=== PATIENT | male | born 1945 | race Caucasian/White ===

== ENCOUNTER → 2016-10-24 | Outpatient (CLI) | payer MEDICARE | END | disposition home or self-care (01) | LOC: LABPAT 10:31 | PROVIDERS: ATTEND Orthopaedic Surgery | DX: Z01.812 Encounter for preprocedural laboratory examination (principal) | CPT/HCPCS: 87070 ==

== ENCOUNTER 2016-11-17 05:53 | Inpatient (IN) | payer MEDICARE ==
[2016-11-06 11:09] VITALS: BMI 28.5
--- NOTE | 2016-11-16 17:38 | HP ---
DATE OF ADMISSION: 11/17/2016 Frederick Read is 71-year-old patient seen with painful left knee medial compartment arthroplasty. After having treatment options discussed, he elected to proceed with revision left total knee arthroplasty. Consent regarding the procedure was obtained. Medical clearance was provided by Dr. Celestino Carrion. Cardiac clearance was provided by Dr. Vaughn. His past medical history is hypertension, cardiovascular disease, hyperlipidemia, seizures. Past surgical history is left knee arthroscopy, left knee medial compartment arthroplasty, herniorrhaphy, left shoulder arthroscopy, cardiac catheterization with stent insertion. DAILY MEDICATIONS: Aspirin, benazepril, Dilantin, Lipitor, metoprolol, Plavix, Naprosyn. ALLERGIES: None. SOCIAL HISTORY: Patient denies current tobacco use. PHYSICAL EVALUATION OF HIS LEFT KNEE: There is a well-healed paramedial incision: His range of motion is -2/3 to 115 degrees there is tenderness along the medial and lateral joint lines. There is crepitance along the medial, lateral and patellofemoral compartments with range of motion. His ligaments appear stable. Hip rotation is without pain. Distal neurovascular exam is intact. Radiographs of the left knee revealed a medial compartment resurfacing arthroplasty with patellofemoral lateral compartment osteoarthritic changes. IMPRESSION: Painful left knee medial unicompartmental arthroplasty. PLAN: Revision left total knee arthroplasty.
[~2016-11-17 05:53] MED LIST: ACETAMINOPHEN TAB 500 MG TAB PO ONE; HYDROmorphone 1 MG/ML 1 ML SYRINGE IVP PRN; LIDOCAINE 1% 20 ML VIAL (10MG/ML) FOR IV START INTRADERMA PRN; MELOXICAM 7.5 MG TAB PO ONE; MIDAZOLAM 2 MG/2 ML VIAL IV PRN; ONDANSETRON 4 MG/2 ML VIAL IVP ONE; TRANEXAMIC ACID 1,000 MG in SODIUM CHLORIDE 0.9% 100 ML IVPB ONE; ceFAZolin 2 GM in SODIUM CHLORIDE 0.9% 100 ML IVPB ONE; fentaNYL (PF) 50 MCG/ML 20 ML VIAL IVP PRN
[2016-11-17] MEDS ORDERED: LACTATED RINGERS 1,000 ML IV ONE ×3 (06:43→09:10)
[2016-11-17] MEDS ORDERED: MIDAZOLAM 2 MG/2 ML VIAL IVP ONE (07:12)
[2016-11-17] MEDS ORDERED: fentaNYL (PF) 50 MCG/ML 2 ML AMP IV ONE (07:12)
[2016-11-17] MEDS ORDERED: ePHEDrine 50 MG/ML 1 ML AMP ONE (07:35)
[2016-11-17] MEDS ORDERED: PROPOFOL 10 MG/ML 20 ML VIAL IV ONE (07:35)
[2016-11-17] MEDS ORDERED: fentaNYL (PF) 50 MCG/ML 2 ML AMP ONE (07:35)
[2016-11-17] MEDS ORDERED: TRANEXAMIC ACID 1,000 MG/10 ML VIAL ONE (07:35)
[2016-11-17] MEDS ORDERED: MIDAZOLAM 2 MG/2 ML VIAL ONE (07:35)
[2016-11-17] MEDS ORDERED: PHENYLEPHRINE-0.9% NACL SYG 1 MG/10 ML SYRINGE ONE (07:35)
[2016-11-17] MEDS ORDERED: SODIUM CHLORIDE 0.9% 100 ML BAG ONE (07:35)
[2016-11-17] MEDS ORDERED: ROPIVACAINE 1,100 MG, SODIUM CHLORIDE 0.9% 330 ML MISCELLANE PRN ×2 (08:03)
--- NOTE | 2016-11-17 08:05 | P.ONQ ---
Anesthesiology Proc Note - PNB - Peripheral Nerve Block Performed Left Adductor Canal Infusion Time Out Performed: Yes Indication: Acute Post-Operative Pain, Analgesia Specifically requested for management of pain by DrFernanda: Kyler Hendricks Sedation Type: Sedate with meaningful contact maintained Preparation: Sterile Prep Position: Supine Catheter Depth at Skin (cm): 6 Catheter: Indwelling Needle Types: On-Q Needle Size: 100mm (4") Needle Gauge: 20 Technique: Ultrasound Injectate: 0.5% Ropivacaine (see comment for volume) (20) Blood Aspirated: No Pain Paresthesia on Injection Noted: No Resistance on Injection: Normal Events: Uneventful and Well Tolerated
[2016-11-17] MEDS ORDERED: ceFAZolin 3,000 MG in SODIUM CHLORIDE 0.9% IRRIGATIO 3,000 ML IRRIGATION ONE (08:17)
[2016-11-17] MEDS ORDERED: ROPIVACAINE 246.25 MG, EPINEPHrine 0.5 MG, KETOROLAC 30 MG, cloNIDine HCL/PF 80 MCG, WA... MISCELLANE ONE ×5 (08:30)
[2016-11-17] MEDS ORDERED: ONDANSETRON 4 MG/2 ML VIAL IVP PRN (10:38)
[2016-11-17] MEDS ORDERED: HYDROmorphone 1 MG/ML 1 ML SYRINGE IVP PRN ×3 (10:38)
[2016-11-17] MEDS ORDERED: NALOXONE 0.4 MG/ML 1 ML VIAL IV PRN (10:38)
[2016-11-17] MEDS ORDERED: TEMAZEPAM 15 MG CAP PO PRN (10:38)
[2016-11-17] MEDS ORDERED: HYDROcodone/APAP 7.5-325MG 1 EACH TAB PO PRN (10:38)
--- NOTE | 2016-11-17 10:38 | P.OP ---
Date of Procedure: 11/17/16 Preoperative Diagnosis: Painful left knee medial unicompartmental arthroplasty Postoperative Diagnosis: Painful left knee medial unicompartmental arthroplasty with lateral and patellofemoral compartment osteoarthritis Procedure(s) Performed: Revision left total knee arthroplasty Implants: 1. Depuy Attune cruciate retaining size 6 left cemented femoral component 2. Depuy Attune fixed bearing size 6 cemented tibial base 3. Depuy Attune polyethylene tibial insert fixed bearing cruciate retaining size 612 mm 4. Depuy Attune 38 mm polyethylene cemented patella Anesthesia: regional (Adductor canal block), local, spinal Surgeon: Kyler Hendricks Senior Maintenance Machinist #1: Abad Ledesma Estimated Blood Loss (ml): 75 Pathology: other (Bone, extracted unicompartmental arthroplasty components) Condition: stable Disposition: PACU Indications for Procedure: 71-year-old patient seen with a painful left knee medial compartment arthroplasty. After having treatment options discussed, he elected to proceed with revision left total knee arthroplasty. Operative Findings: See description of procedure Description of Procedure: The patient was taken to the operative suite after having undergone a adductor canal block by department of anesthesia. He underwent a spinal by the department of anesthesia. A well-padded tourniquet was placed proximal left lower extremity. He received preoperative IV antibiotics as well as TXA. The left lower extremity was prepped and draped in the normal sterile orthopedic fashion. The extremity was elevated and tourniquet insufflated to 350. I made a standard central incision over the left knee down to the extensor mechanism. Medial arthrotomy was performed. The patella was everted and knee was flexed. There was a stable appearing unicompartmental arthroplasty in place. There was advanced osteoarthritis involving the patellofemoral joint as well as lateral compartment. At this point we began working on extracting our femoral component and it came out without any significant bone loss and fairly easily. We now created a standard tibial cut cutting through the medial polyethylene component. We then made a standard distal femoral cut followed by standard 4-in -1 cut. At this point it appeared that I could get away with using a primary knee for this revision case. I removed the residual polyethylene component medially and did have good bony areas around it with only about a 3 or 4 mm defect tracking was easily tolerated with a primary implant. We went ahead and placed trial components on both the tibial and femoral side as well as trial polyethylene we worked our way up to the appropriate size polyethylene and we had good range of motion of the knee with good overall stability. We marked off the appropriate rotation of the tibia. I now everted the patella and made a appropriate patellar cut with appropriate patella drill guide and patellar trial component. The knee was taken through full range of motion with good overall stability noted and good tracking the patella. The trial components removed and the keel punch was made for the tibia. We then chose the appropriate components and opened them up. We irrigated the joint with pulse lavage mechanical irrigation. The deep soft tissues were infiltrated with local analgesic. We mixed antibiotic methylmethacrylate. We now cemented in our components including a polyethylene component and patella component. The superficial soft tissues were infiltrated local analgesic. Once the methyl get hardened we took the patellar clamp off and again taken through range of motion. I did this point feel had some hyperextensionswapped the polyethylene for 2 more millimeters with gait which gave us excellent overall stability with continued overall good stability and full range of motion. At this point the tourniquet was released. The wound was irrigated with pulse lavage mechanical irrigation. Additional hemostasis achieved electrocautery. A second gram of TXA was given. The extensor mechanism was repaired and he was then taken through full range of motion with good stability noted. The subcu soft tissues were repaired in layers followed by a subcuticular skin suture and pernio and Dermabond for skin. Sterile dressings were applied followed by web roll and Arnold bandage. The patient was awakened and transferred to a bed and then recovery stable condition. Abad POSEY assisted with the procedure.
--- NOTE | 2016-11-17 11:37 | XR ---
EXAMINATION TYPE: XR knee limited LT DATE OF EXAM: 11/17/2016 11:07 AM COMPARISON: NONE TECHNIQUE: 2 view submitted HISTORY: Post op FINDINGS: There is a prosthetic knee in near anatomic alignment. There is soft tissue edema and emphysema. IMPRESSION: 1. Postoperative change. Appears in near-anatomic alignment
[2016-11-17] MEDS: LACTATED RINGERS 1,000 ML IV SCH (11:45)
[2016-11-17] MEDS: traMADol 50 MG TAB PO SCH ×3 (13:01→23:26)
[2016-11-17] MEDS: HYDROcodone/APAP 7.5-325MG 1 EACH TAB PO PRN ×2 (15:19→21:17)
[2016-11-17] MEDS: hydrOXYzine PAMOATE 25 MG CAP PO PRN (15:20)
[2016-11-17] MEDS: ceFAZolin 2 GM in SODIUM CHLORIDE 0.9% 100 ML IVPB SCH (15:20)
[2016-11-17] MEDS: ATORVASTATIN 40 MG TAB PO SCH (21:18)
[2016-11-17] MEDS: ENOXAPARIN 30 MG/0.3 ML SYRINGE SQ SCH (21:19)
[2016-11-17] MEDS: PHENYTOIN SODIUM EXTENDED 100 MG CAP PO SCH (21:19)
[2016-11-17] MEDS: SENNOSIDES-DOCUSATE SODIUM 1 EACH TAB PO SCH (21:19)
[2016-11-18] MEDS: ceFAZolin 2 GM in SODIUM CHLORIDE 0.9% 100 ML IVPB SCH (00:24)
[2016-11-18] MEDS: SODIUM CHLORIDE 0.9% 1,000 ML IV SCH ×2 (00:24→12:33)
[2016-11-18] MEDS: HYDROcodone/APAP 7.5-325MG 1 EACH TAB PO PRN ×4 (02:38→18:00)
[2016-11-18] MEDS: LACTATED RINGERS 1,000 ML IV SCH (04:41)
[2016-11-18 07:24] LABS: Basophils % (A) 0 %; CH 31.3; Eosinophils % (A) 0 %; HCT 37.1 % (39.0-53.0); HGB 11.9 gm/dL (13.0-17.5); Luc # (Auto) 0.24; Luc % (Auto) 3; Lymphocytes # (A) 0.9 k/uL (1.0-4.8); Lymphocytes % (A) 10 %; MCH 30.7 pg (25.0-35.0); MCHC 32.2 g/dL (31.0-37.0); MCV 95.3 fL (80.0-100.0); Mean Platelet Volume 8.2; Monocytes # (A) 0.7 k/uL (0-1.0); Monocytes % (A) 8 %; Neutrophils % (A) 79 %; RBC 3.89 m/uL (4.30-5.90); RDW 12.2 % (11.5-15.5); WBC 8.9 k/uL (3.8-10.6); WBC (Perox) 9.72
[2016-11-18] MEDS: hydrOXYzine PAMOATE 25 MG CAP PO PRN ×3 (07:42→18:01)
[2016-11-18] MEDS: PHENYTOIN SODIUM EXTENDED 100 MG CAP PO SCH ×2 (07:45→21:10)
[2016-11-18] MEDS: MULTIVITAMINS, THERA 1 EACH TAB PO SCH (07:45)
[2016-11-18] MEDS: ISOSORBIDE MONONITRATE ER 30 MG TAB.ER.24H PO SCH (07:46)
[2016-11-18] MEDS: ENOXAPARIN 30 MG/0.3 ML SYRINGE SQ SCH ×2 (07:46→21:10)
[2016-11-18] MEDS: LISINOPRIL 20 MG TAB PO SCH (07:46)
[2016-11-18] MEDS ORDERED: MELOXICAM 7.5 MG TAB PO SCH (09:00)
[2016-11-18] MEDS ORDERED: FAMOTIDINE 20 MG TAB PO SCH (09:00)
[2016-11-18] MEDS: traMADol 50 MG TAB PO SCH ×4 (10:00→21:11)
[2016-11-18] MEDS ORDERED: NITROGLYCERIN SL TABS 0.4 MG TAB SUBLINGUAL PRN (11:10)
--- NOTE | 2016-11-18 11:41 | P.PN ---
Subjective Principal diagnosis: Status post revision left total knee arthroplasty Patient is seen today resting in his hospital bed, his is present at bedside. Patient admits to increasing pain today when he attempted to weight- bear. He denies any chest pain, shortness of breath, fever or chills. Objective - Vital Signs Vital signs: Vital Signs Temp 98.0 F 11/18/16 07:00 Pulse 77 11/18/16 07:00 Resp 16 11/18/16 07:00 BP 119/70 11/18/16 07:00 Pulse Ox 95 11/18/16 07:00 Intake & Output 11/17/16 11/18/16 11/18/16 18:59 06:59 18:59 Intake Total 2562 480 Output Total 215 1000 200 Balance 2347 -1000 280 Intake: IV 2202 Sodium Chloride 0.9% 1, 100 000 ml @ 50 mls/hr IV . Q20H GLORIA Rx#:[id number] Oral 360 480 Output: Urine 140 1000 200 Uretheral (Juarez) 200 Estimated Blood Loss 75 Other: Voiding Method Indwelling Catheter Indwelling Catheter - Exam Left lower extremity: Incision is clean, dry and intact. Ecchymosis present along the medial and lateral aspects of the incision. Moderate swelling noted around the knee into the calf. There is no tenderness with palpation throughout the calf. Plantar flexion, dorsiflexion, EHL, FHL are intact. Sensory exam to light touch is intact, cap refills less than 2 seconds. - Labs CBC & Chem 7: 11/18/16 07:01 Labs: Abnormal Lab Results - Last 24 Hours (Table) 11/18/16 Range/Units 07:01 RBC 3.89 L (4.30-5.90) m/uL Hgb 11.9 L (13.0-17.5) gm/dL Hct 37.1 L (39.0-53.0) % Lymphocytes # 0.9 L (1.0-4.8) k/uL Assessment and Plan Plan: Assessment: 1. Postop day #1 status post revision left total knee arthroplasty Plan: 1. Pain control, we will adjust oral medication slightly 2. Daily dressing changes/ice and elevate 3. Continue therapy and CPM 4. Encourage incentive spirometer 5. GI and DVT prophylaxis, continue Lovenox subcu during hospital stay, we'll discharge home with aspirin 325 mg twice a day 6. Cisco liz 7. Discharge planning: Patient will be likely discharged home tomorrow Time with Patient: Less than 30
[2016-11-18] MEDS: HYDROcodone/APAP 10-325MG 1 EACH TAB PO SCH ×3 (12:16→21:11)
--- NOTE | 2016-11-18 12:33 | P.PN ---
Progress Note - Text 0634 anesthesia POD1. Patient is status post left TKR under spinal anesthesia with a left adductor canal catheter placed for postoperative pain relief. Adductor canal catheter site is clean, dry and the dressing is intact. 0.2% ropivacaine is infusing at 10 mL/h resulting in a VAS of (2, 4).
[2016-11-18] MEDS: ASPIRIN 325 MG TAB PO SCH (12:58)
[2016-11-18] MEDS: FAMOTIDINE 20 MG TAB PO SCH ×2 (12:58→21:42)
--- NOTE | 2016-11-18 13:48 | CONS ---
DATE OF CONSULTATION: 11/17/2016. REASON FOR CONSULTATION: Advice regarding coronary artery disease and other multiple medical issues requested Dr. Hendricks. HISTORY OF PRESENT ILLNESS: This 71-year-old gentleman with a past history of coronary artery disease, history of hypertension, hyperlipidemia, history of myocardial infarction, history of, history of CAD/stent, being followed by Dr. Mk Carrion in the outpatient setting underwent left total knee joint arthroplasty revision by Dr. Hendricks. There is no history of any fever, rigors or chills. No history of headache, loss of consciousness or seizures. Past medical history of CAD, hypertension, hyperlipidemia, history of myocardial infarction, history of subdural hematoma, history of appendectomy, CAD/stent. MEDICATIONS PRIOR TO ADMISSION: Home medications are: 1. Dilantin 200 mg p.o. b.i.d. 2. [place]-3 1000 mg p.o. b.i.d. 3. Nitrostat 0.4 sublingual p.r.n. 4. Multivitamins one p.o. daily. 5. Imdur 30 mg p.o. daily. 6. Plavix 75 milligrams daily. 7. Vitamin D3 1000 p.r.n. 8. Lotensin 10 mg p.o. b.i.d. 9. Lipitor 40 mg. 10. Aspirin 320 mg daily. ALLERGIES: ntd FAMILY HISTORY: History of CAD in the family. SOCIAL HISTORY: Previous history of smoking, occasional alcohol intake. REVIEW OF SYSTEMS: ENT: No diminished hearing. No diminished vision. CARDIOVASCULAR SYSTEM: As mentioned earlier. RESPIRATORY: No cough or hemoptysis. GI: No nausea. : No dysuria. CENTRAL NERVOUS SYSTEM: No numbness or weakness. ALLERGY/IMMUNOLOGY: No asthma or hayfever. MUSCULOSKELETAL: As mentioned earlier. HEMATOLOGY/ONCOLOGY: No history of anemia. ENDOCRINE: No history of diabetes or hypothyroidism. CONSTITUTIONAL: As mentioned earlier. DERMATOLOGY: Negative. RHEUMATOLOGY: Negative. PSYCHIATRY: Negative. PHYSICAL EXAMINATION: The patient is alert and oriented times three, pulse 77, blood pressure 140/77, respiratory rate 16, temperature 97.4, pulse ox 94% on room air. HEENT: Conjunctivae normal. NECK: No jugular venous distention. CARDIOVASCULAR: S1, S2 muffled. RESPIRATORY : Breath sounds diminished at the bases. No rhonchi, no crackles. ABDOMEN: Soft. Legs: Status post knee joint arthroplasty. LYMPHATICS: No lymph nodes palpable in the neck, axillae or groin. Labs are glucose 105. CBC within normal limits. Phenytoin is normal. ASSESSMENT: 1. Status post right total knee arthroplasty revision for severe degenerative joint disease. 2. History of coronary artery disease/stents. 3. Hypertension. 4. Hyperlipidemia. 5. History of myocardial infarction. 6. History of seizure disorder. 7. History of subdural hematoma. 8. History of degenerative joint disease. 9. Remote history of nicotine dependence. 10. FULL CODE. RECOMMENDATIONS AND DISCUSSION: In this 71-year-old gentleman who presented with multiple complex medical issues, at this time, I would recommend to continue the current medications, continue symptomatic treatment. Otherwise, resume the home medication including antiplatelet agents when okay with orthopedic surgery. Otherwise, I would recommend close monitoring. DVT prophylaxis. Further recommendations to follow. Incentive spirometry. The patient will be asked to follow with the primary physician and sanitation worker cleaning equipment closely after discharge. Thank you, Dr. Hendricks for letting us participate in the care of this patient. SALAS
[2016-11-18] MEDS: ATORVASTATIN 40 MG TAB PO SCH (21:10)
[2016-11-18] MEDS: SENNOSIDES-DOCUSATE SODIUM 1 EACH TAB PO SCH (21:11)
--- NOTE | 2016-11-18 21:53 | CONS ---
DATE OF CONSULTATION: 11/18/2016 REASON FOR CONSULTATION: Medical management requested by Dr. Hendricks. CONSULTATION: This is a very pleasant 71-year-old patient of Dr. Carrion who has undergone a left total knee arthroplasty. Post-procedure some pain is present. No nausea, vomiting. No chest pain. Patient's chronic stable medical conditions include coronary artery disease with stent back in 2013 and 2002, hyperlipidemia, hypertension, seizure disorder, the last being 10 years ago. REVIEW OF SYSTEMS: CONSTITUTIONAL: None. HEENT: None. RESPIRATORY: None. CARDIOVASCULAR: None. GASTROINTESTINAL: None. GENITOURINARY: None. MUSCULOSKELETAL: Arthritic pain in the right knee. DERMATOLOGIC: None. HEMATOLOGIC: None. LYMPHATIC: None. PSYCHIATRY: None. NEUROLOGICAL: None. PAST HISTORY: 1. Coronary artery disease with stent in 2002 and 2013. 2. Hyperlipidemia. 3. Hypertension. 4. Seizure disorder. 5. Subdural hematoma. PAST SURGICAL HISTORY: 1. Appendectomy. 2. Cardiac cath with stent. 3. Hernia repair. 4. Joint replacement. 5. Left rotator cuff repair x2. SOCIAL HISTORY: Patient stopped smoking in 2001; he used to smoke a pipe. . Alcohol rarely. FAMILY HISTORY: Coronary artery disease. HOME MEDICATIONS: 1. Dilantin 200 mg p.o. b.i.d. 2. [place]-3 1000 mg p.o. b.i.d. 3. Nitrostat 0.4 sublingually q.5 p.r.n. 4. Centrum Complete 1 tablet p.o. daily. 5. Imdur 30 mg daily. 6. Plavix 75 mg daily. 7. Lotensin 10 mg p.o. b.i.d. 8. Lipitor 40 mg p.o. at bedtime. 9. Aspirin 325 p.o. daily. ALLERGIES: QUININE. On examination, temperature 98, pulse 77, respiration 16, blood pressure 119/70, pulse ox 95% on room air. GENERAL APPEARANCE: Average build. Sitting up. Not in distress. EYES: Pupils equal. Conjunctivae normal. HEENT: Oral cavity normal. NECK: JVD not raised. Mass not palpable. RESPIRATORY: Effort normal. Lungs are clear. CARDIOVASCULAR: First and second sounds normal. No edema. ABDOMEN: Soft, nontender. Liver and spleen not palpable. LYMPHATICS: No lymph node palpable in neck or axillae. PSYCHIATRY: Alert and oriented x3. Mood and affect normal. NEUROLOGICAL: Pupils equal. Cranial nerves grossly intact. Power and sensation grossly intact. MUSCULOSKELETAL: Evidence of osteoarthritis, especially in the right knee. Dressing over the left knee. INVESTIGATIONS: White count 8.9, hemoglobin 11.9. ASSESSMENT: 1. Left total knee arthroplasty. 2. Osteoarthritis of the right knee. 3. Chronic seizure disorder, for which the patient is on Dilantin. 4. Essential hypertension. 5. Hyperlipidemia. 6. Coronary artery disease with stent in 2002 and 2013, which is stable. PLAN: Patient's home medications are to be resumed. DVT prophylaxis was discussed with the PA from Orthopedics. Patient to go back on his Plavix if okay with the attending. Care was discussed with the patient and family at the bedside. Questions were answered. Thank you, Dr. Hendricks.
[2016-11-19] MEDS: HYDROcodone/APAP 7.5-325MG 1 EACH TAB PO PRN ×2 (00:28→05:19)
[2016-11-19] MEDS: HYDROcodone/APAP 10-325MG 1 EACH TAB PO SCH (09:05)
[2016-11-19] MEDS: ASPIRIN 325 MG TAB PO SCH (09:06)
[2016-11-19] MEDS: PHENYTOIN SODIUM EXTENDED 100 MG CAP PO SCH ×2 (09:07→20:16)
[2016-11-19] MEDS: ENOXAPARIN 30 MG/0.3 ML SYRINGE SQ SCH ×2 (09:07→20:16)
[2016-11-19] MEDS: ISOSORBIDE MONONITRATE ER 30 MG TAB.ER.24H PO SCH (09:07)
[2016-11-19] MEDS: FAMOTIDINE 20 MG TAB PO SCH ×2 (09:07→20:16)
[2016-11-19] MEDS: LISINOPRIL 20 MG TAB PO SCH (09:07)
[2016-11-19] MEDS: traMADol 50 MG TAB PO SCH ×4 (09:37→21:27)
[2016-11-19] MEDS: HYDROcodone/APAP 10-325MG 1 EACH TAB PO PRN ×3 (11:02→21:26)
[2016-11-19] MEDS: hydrOXYzine PAMOATE 25 MG CAP PO PRN ×2 (11:02→16:10)
--- NOTE | 2016-11-19 12:10 | US ---
EXAMINATION TYPE: US venous doppler duplex LE LT DATE OF EXAM: 11/19/2016 10:54 AM COMPARISON: NONE CLINICAL HISTORY: calf swelling, s/p tka. Left knee replacement on thursday. On blood thinners per pat ient. SIDE PERFORMED: Left VESSELS IMAGED: External Iliac Vein (EIV) Common Femoral Vein Deep Femoral Vein Greater Saphenous Vein * Femoral Vein Popliteal Vein Small Saphenous Vein * Proximal Calf Veins (* superficial vessels) Findings: There appears be normal compressibility and spontaneous flow. IMPRESSION: 1. No diagnostic evidence of DVT.
--- NOTE | 2016-11-19 12:31 | P.PN ---
Subjective Principal diagnosis: Status post revision left total knee arthroplasty Patient is seen today resting in his hospital bed, his is present at bedside. Patient continue to have increased pain. He denies any chest pain, shortness of breath, fever or chills. Objective - Vital Signs Vital signs: Vital Signs Temp 98.3 F 11/19/16 07:00 Pulse 76 11/19/16 07:00 Resp 18 11/19/16 07:00 BP 130/75 11/19/16 07:00 Pulse Ox 94 L 11/19/16 07:00 Intake & Output 11/18/16 11/19/16 11/19/16 18:59 06:59 18:59 Intake Total 530 450 Output Total 575 Balance -45 450 Intake: IV 50 Sodium Chloride 0.9% 1, 50 000 ml @ 50 mls/hr IV . Q20H GLORIA Rx#:[id number] Oral 480 450 Output: Urine 575 Uretheral (Juarez) 200 Other: Voiding Method Urinal # Voids 3 - Exam Left lower extremity: Incision is clean, dry and intact. Ecchymosis present along the medial and lateral aspects of the incision. Moderate swelling noted around the knee into the calf. Minor tenderness with palpation on posterior aspect of calf. Plantar flexion, dorsiflexion, EHL, FHL are intact. Sensory exam to light touch is intact, cap refills less than 2 seconds. - Labs CBC & Chem 7: 11/18/16 07:01 Assessment and Plan Plan: Assessment: 1. Postop day #2 status post revision left total knee arthroplasty Plan: 1. Pain control, increased oral medication 2. Daily dressing changes/ice and elevate 3. Continue therapy and CPM 4. Encourage incentive spirometer 5. GI and DVT prophylaxis, continue Lovenox subcu during hospital stay, we'll discharge home with aspirin 325 mg twice a day. Doppler of LLE was negative. 6. Medical recommendations 7. Discharge planning: Patient will be likely discharged home tomorrow Time with Patient: Less than 30
[2016-11-19] MEDS: MULTIVITAMINS, THERA 1 EACH TAB PO SCH (13:15)
[2016-11-19] MEDS: CLOPIDOGREL 75 MG TAB PO SCH (20:15)
[2016-11-19] MEDS: SENNOSIDES-DOCUSATE SODIUM 1 EACH TAB PO SCH (20:16)
[2016-11-19] MEDS: ATORVASTATIN 40 MG TAB PO SCH (20:16)
[2016-11-20 02:32] VITALS: RESP 16
[2016-11-20] MEDS: hydrOXYzine PAMOATE 25 MG CAP PO PRN ×2 (02:51→08:38)
[2016-11-20] MEDS: HYDROcodone/APAP 10-325MG 1 EACH TAB PO PRN ×3 (02:52→13:38)
--- NOTE | 2016-11-20 07:57 | PN ---
DATE OF SERVICE: 11/19/2016 PRESENTING COMPLAINT: Left knee surgery. INTERVAL HISTORY: Patient was seen by me earlier today, doing well. Pain is controlled. No chest pain, short of breath, nausea or vomiting. Some swelling of the left leg, getting an ultrasound and rule out DVT. Tolerating his diet. at the bedside. Review of systems done for constitutional, cardiovascular, GI, pulmonary; relevant findings as above. Current medications are reviewed. On examination, temperature 98.3, pulse 76, respiration 18, blood pressure 130/75, pulse ox 94% on room air. GENERAL APPEARANCE: Lying in bed, comfortable. EYES: Pupils equal. Conjunctivae normal. NECK: JVD not raised. Mass not palpable. Respiratory effort normal. Lungs are clear. CARDIOVASCULAR: First and second sounds normal. No edema. ABDOMEN: Soft, nontender. Liver and spleen not palpable. PSYCHIATRY: Mood and affect normal. EXTREMITY: Dressing on the left knee and some swelling compared to the right leg. INVESTIGATIONS: No blood work from today. ASSESSMENT: 1. Left total knee arthroplasty for osteoarthritis. 2. Osteoarthritis of the right knee. 3. Chronic seizure disorder, patient is on Dilantin. 4. Essential hypertension. 5. Hyperlipidemia. 6. Coronary artery disease with stent in 2002, 2013. PLAN: Continue medication and treatment plan. DVT is being ruled out. Care was discussed with the patient and . Will follow.
[2016-11-20 08:26] VITALS: BP 135/81; TEMP 97.5
[2016-11-20] MEDS: CLOPIDOGREL 75 MG TAB PO SCH (08:40)
[2016-11-20] MEDS: ASPIRIN 325 MG TAB PO SCH (08:40)
[2016-11-20] MEDS: ENOXAPARIN 30 MG/0.3 ML SYRINGE SQ SCH (08:40)
[2016-11-20] MEDS: ISOSORBIDE MONONITRATE ER 30 MG TAB.ER.24H PO SCH (08:41)
[2016-11-20] MEDS: FAMOTIDINE 20 MG TAB PO SCH (08:41)
[2016-11-20] MEDS: PHENYTOIN SODIUM EXTENDED 100 MG CAP PO SCH (08:41)
[2016-11-20] MEDS: LISINOPRIL 20 MG TAB PO SCH (08:41)
[2016-11-20] MEDS: traMADol 50 MG TAB PO SCH ×2 (08:45→13:11)
[2016-11-20 08:54] LABS: Basophils % (A) 0 %; CH 31.6; CHCM 33.6; Eosinophils # (A) 0.4 k/uL (0-0.7); Eosinophils % (A) 6 %; HCT 35.7 % (39.0-53.0); HDW 2.35; Luc # (Auto) 0.35; Luc % (Auto) 4; Lymphocytes # (A) 1.6 k/uL (1.0-4.8); Lymphocytes % (A) 20 %; MCH 31.8 pg (25.0-35.0); MCHC 33.7 g/dL (31.0-37.0); MCV 94.2 fL (80.0-100.0); Mean Platelet Volume 7.7; Monocytes # (A) 0.6 k/uL (0-1.0); Monocytes % (A) 8 %; Neutrophils # (A) 4.9 k/uL (1.3-7.7); Neutrophils % (A) 62 %; RBC 3.79 m/uL (4.30-5.90); WBC 7.9 k/uL (3.8-10.6); WBC (Perox) 7.84
--- NOTE | 2016-11-20 09:56 | P.PN ---
Subjective Principal diagnosis: Status post revision left total knee arthroplasty Patient is seen today resting in his hospital bed, his is present at bedside. Pain is better controlled on current medication. He denies any chest pain, shortness of breath, fever or chills. Objective - Vital Signs Vital signs: Vital Signs Temp 97.5 F L 11/20/16 07:00 Pulse 77 11/20/16 07:00 Resp 16 11/20/16 07:00 BP 135/81 11/20/16 07:00 Pulse Ox 96 11/20/16 07:00 Intake & Output 11/19/16 11/20/16 11/20/16 18:59 06:59 18:59 Intake Total 350 180 Output Total 200 200 Balance 150 -200 180 Intake: Oral 350 180 Output: Urine 200 200 Other: # Voids 1 - Exam Left lower extremity: Incision is clean, dry and intact. Ecchymosis present along the medial and lateral aspects of the incision. Moderate swelling noted around the knee into the calf. Minor tenderness with palpation on posterior aspect of calf. Plantar flexion, dorsiflexion, EHL, FHL are intact. Sensory exam to light touch is intact, cap refills less than 2 seconds. - Labs CBC & Chem 7: 11/20/16 07:21 Labs: Abnormal Lab Results - Last 24 Hours (Table) 11/20/16 Range/Units 07:21 RBC 3.79 L (4.30-5.90) m/uL Hgb 12.0 L (13.0-17.5) gm/dL Hct 35.7 L (39.0-53.0) % Assessment and Plan Plan: Assessment: 1. Postop day #3 status post revision left total knee arthroplasty Plan: 1. Pain control, increased oral medication 2. Daily dressing changes/ice and elevate 3. Continue therapy and CPM 4. Encourage incentive spirometer 5. GI and DVT prophylaxis, discharge home with aspirin 325 mg twice a day. 6. Medical recommendations 7. Discharge planning: Patient will be discharged home today Time with Patient: Less than 30
--- NOTE | 2016-11-20 10:00 | P.DS ---
Providers Date of admission: 11/17/16 05:53 Expected date of discharge: 11/20/16 Attending physician: Kyler Hendricks Consults: 11/17/16 10:38 Consult Physician Routine Consulting Provider: Zeeshan Snow Consult Reason/Comments: Medical management Do you want consulting provider notified?: Yes Primary care physician: Mk Alexandra Murali [facility] Course: Date of admission: 11/17/2016 Date of discharge: 11/20/2016 Admission diagnosis: Status post revision left total knee arthroplasty Discharge diagnosis: Using Attending physician: Dr. Hendricks Surgical procedures: Revision left total knee arthroplasty Brief history: Patient is a 71-year-old male with a history of a painful partial left knee replacement. At this point patient has failed conservative treatment measures and has opted to proceed with a elective revision left total knee arthroplasty. Hospital course: Details of patient's surgery can be found in operative report. Patient tolerated the procedure well and was subsequently transported to orthopedic floor. Patient's orthopeidc and medical care was provided daily. Patient had daily laboratory tests performed for evaluation of overall blood counts. Patient had daily physical therapy to include strengthening range of motion as well as education with walker ambulation. Patient had daily CPM usage as part of their physical therapy program. Patient was treated with Lovenox for their postoperative DVT prophylaxis during their inpatient stay. Patient was noted to have a relatively uneventful postoperative course. Patient reported satisfactory pain control with oral pain medications by postoperative day 1. Patient showed satisfactory progress with physical therapy. Patient moved steadily through the program and had no difficulty meeting the goals by postoperative day 3. Given patient's otherwise satisfactory course and having met physical therapy goals, plan is to discharge patient home on postoperative day 3. Discharge condition/disposition: Patient will be discharged home in stable condition. Discharge medications: Instructions are given on resumption of patient's normal daily medications per primary care recommendation, in addition patient will be prescribed [place] 10 mg/325 mg, tramadol 50 mg, Colace 100 mg, Pepcid 20 mg, aspirin 325 mg. Discharge instructions: 1. Wound care and infection precautions, keep incision dry and covered while showering, no lotions, creams, moisturizers. No soaking, tubs, pools, hottubs. Do not scrub over the incision. 2. Weight-bear as tolerated with walker / cane until follow-up. 3. Ice and elevate when necessary. Do not exceed 20 minutes per hour with ice pack. 4. Utilize compression sleeve until seen at first follow up appointment. 5. Visiting nursing care. 6. Home physical therapy including home CPM. 7. Pain meds and anticoagulants per prescription. 8. Pain medication has potential to cause constipation. Increase oral fluid and fiber intake. Contact primary care provider if you have not had a bowel movement within 48 hours after discharge 9. No anti-inflammatory medication until discussed at first post operative visit, this including Motrin, Aleve, Mobic, Diclofenac. 10. Follow up in office at 2 weeks postop with Vini Ledesma PA-C 11. Follow up with your primary care doctor 7-10 days after discharge. 12. Contact [facility] with any questions, . Procedures: Revision left total knee arthroplasty Patient Condition at Discharge: Good Plan - Discharge Summary New Discharge Prescriptions: Aspirin 325 mg PO BID #60 tab Docusate [Colace] 100 mg PO DAILY #30 capsule Famotidine [Pepcid] 20 mg PO DAILY #30 tablet Hydrocodone/Acetaminophen [[place] 10-325] 1 each PO Q6H PRN #60 tab PRN Reason: Pain traMADol HCl [Ultram] 50 mg PO Q6H PRN #40 tab PRN Reason: Pain Discharge Medication List Benazepril [Lotensin] 10 mg PO BID 02/20/14 [History] Cholecalciferol [Vitamin D3] 1,000 unit PO DIRECTED 02/20/14 [History] Isosorbide Mononitrate [Imdur] 30 mg PO DAILY 02/20/14 [History] Multivitamin/Iron/Folic Acid [Centrum Complete Multivit Tab] 1 tab PO DAILY [History] Drury-3 Fatty Acids [Drury-3] 1,000 mg PO BID 02/20/14 [History] Phenytoin Sodium Extended [Dilantin] 200 mg PO BID 02/20/14 [History] Clopidogrel [Plavix] 75 mg PO DAILY #30 tab 02/23/14 [Rx] Nitroglycerin Sl Tabs [Nitrostat] 0.4 mg SUBLINGUAL Q5M PRN #30 tab 02/23/14 [Rx ] Atorvastatin [Lipitor] 40 mg PO HS 11/06/16 [History] Aspirin 325 mg PO BID #60 tab 11/20/16 [Rx] Docusate [Colace] 100 mg PO DAILY #30 capsule 11/20/16 [Rx] Famotidine [Pepcid] 20 mg PO DAILY #30 tablet 11/20/16 [Rx] Hydrocodone/Acetaminophen [[place] 10-325] 1 each PO Q6H PRN #60 tab 11/20/16 [Rx] traMADol HCl [Ultram] 50 mg PO Q6H PRN #40 tab 11/20/16 [Rx] Follow up Appointment(s)/Referral(s): [facility], [NON-STAFF] - 1 Week Abad Ledesma PAC [PHYSICIAN [employer]ER] - 2 Weeks Activity/Diet/Wound Care/Special Instructions: call [facility] when you get home to have your CPM delivered to your home 1- [phone] Orthopedic Discharge Instructions: 1. Wound care and infection precautions, keep incision dry and covered while showering, no lotions, creams, moisturizers. No soaking, pools, hot tubs. Do not scrub over incision. 2. Weight-bear as tolerated with walker / cane until follow-up. 3. Ice and elevate when necessary. Do not exceed 20 minutes per hour with ice pack. 4. Utilize compression sleeve until seen at first follow up appointment. 5. Visiting nursing care. 6. Home physical therapy including home CPM. 7. Pain meds and anticoagulants per prescription. 8. Pain medication has potential to cause constipation. Increase oral fluid and fiber intake. Contact primary care provider if you have not had a bowel movement within 48 hours after discharge. 9. No anti-inflammatory medication until discussed at first post operative visit, this including Motrin, Aleve, Mobic, Diclofenac. 10. Follow up in office at 2 weeks postop with Vini Ledesma PA-C 11. Follow up with your primary care doctor 7-10 days after discharge. 12. Contact [facility] with any questions, . Discharge Disposition: HOME WITH HOME HEALTH SERVICES
[2016-11-20 11:51] VITALS: PULSE 75
[2016-11-20] MEDS: MULTIVITAMINS, THERA 1 EACH TAB PO SCH (13:08)
--- NOTE | 2016-11-20 23:20 | PN ---
DATE OF SERVICE: 11/20/2016 PRESENTING COMPLAINT: Left knee surgery. INTERVAL HISTORY: Patient was seen by me this morning; doing much better. Pain is controlled. No nausea or vomiting. Lying in bed. Review of systems done for constitutional, cardiovascular, GI, pulmonary; relevant findings as above. Current medications are reviewed. On examination, temperature 97.5, pulse 77, respiration 16, blood pressure 135/81, pulse ox 96%. GENERAL APPEARANCE: Lying in bed, comfortable. EYES: Pupils equal. Conjunctivae normal. NECK: JVD not raised. Mass not palpable. RESPIRATORY: Effort normal. Lungs are clear. CARDIOVASCULAR: First and second sounds normal. No edema. ABDOMEN: Soft, nontender. Liver and spleen not palpable. PSYCHIATRY: Alert and oriented x3. Mood and affect normal. INVESTIGATIONS: Hemoglobin 12. ASSESSMENT: 1. Left total knee arthroplasty for osteoarthritis. 2. Osteoarthritis of the right knee. 3. Chronic seizure disorder. Patient is on Dilantin. 4. Essential hypertension. 5. Hyperlipidemia. 6. Coronary artery disease with stent in 2002, 2013. PLAN: Overall doing much better. Care was discussed with the patient and his . Questions were answered.
== END 2016-11-20 13:45 | disposition home health service (06) | DRG 468 ==
LOC: 2ORMAIN 05:53 → 3SUR 11:22
PROVIDERS: ADMIT Orthopaedic Surgery; ATTEND Orthopaedic Surgery
PROC: 0SPD0JZ Removal of Synthetic Substitute from Left Knee Joint, Open Approach (ICD-10-PCS; principal; 2016-11-17 07:30)
PROC: 0SUW09Z Supplement Left Knee Joint, Tibial Surface with Liner, Open Approach (ICD-10-PCS; principal; 2016-11-17 07:30)
PROC: 0SRD0J9 Replacement of Left Knee Joint with Synthetic Substitute, Cemented, Open Approach (ICD-10-PCS; principal; 2016-11-17 07:30)
PROC: 0SPD09Z Removal of Liner from Left Knee Joint, Open Approach (ICD-10-PCS; principal; 2016-11-17 07:30)
DX: T84.84XA Pain due to internal orthopedic prosthetic devices, implants and grafts, initial encounter (principal); G40.909 Epilepsy, unspecified, not intractable, without status epilepticus; I10 Essential (primary) hypertension; E78.5 Hyperlipidemia, unspecified; Y79.2 Prosthetic and other implants, materials and accessory orthopedic devices associated with adverse incidents; I25.10 Atherosclerotic heart disease of native coronary artery without angina pectoris; I25.2 Old myocardial infarction; M17.11 Unilateral primary osteoarthritis, right knee; Z79.02 Long term (current) use of antithrombotics/antiplatelets; Z79.82 Long term (current) use of aspirin; Z79.899 Other long term (current) drug therapy; Z82.49 Family history of ischemic heart disease and other diseases of the circulatory system; Z87.891 Personal history of nicotine dependence; Z90.49 Acquired absence of other specified parts of digestive tract; Z95.5 Presence of coronary angioplasty implant and graft
CPT/HCPCS: 85025; 88300

== ENCOUNTER → 2017-04-06 | Outpatient (CLI) | payer MEDICARE ==
--- NOTE | 2017-04-06 12:50 | MR ---
EXAMINATION TYPE: MR knee RT wo con DATE OF EXAM: 04/06/2017 COMPARISON: Plain film 03/24/2017 HISTORY: Rt. knee pain TECHNIQUE: Multiplanar, multisequence imaging of the right knee is performed without IV contrast. FINDINGS: MEDIAL MENISCUS: Posterior horn of the medial meniscus shows irregular increased signal linear focus extending to the articular surface suggestive of a degenerative tear LATERAL MENISCUS: Anterior and posterior horns are intact without tear. CRUCIATE LIGAMENTS: The anterior and posterior cruciate ligaments are intact and unremarkable. COLLATERAL LIGAMENTS: Fluid signal along the medial collateral ligament may be due to strain, partial tear. EXTENSOR MECHANISM: Visualized quadriceps and patellar tendons are intact. EFFUSION: Small suprapatellar joint effusion is present. Extending from the joint space laterally th ere is a recess posterior to the proximal tibia and fibula which shows luminal foci of low signal whi ch measures 13 mm the other measuring approximately 15 mm. Smaller foci are also suspected, findings suggest synovial osteochondromatosis, loose bodies. POPLITEAL CYST: No popliteal/shahid cyst. TRICOMPARTMENT SPACES: Joint space loss greatest at the medial compartment CARTILAGE: Grade 3 to grade IV chondromalacia at the posterior patella, medial and lateral femoral co ndyles. BONE MARROW SIGNAL: Subchondral geodes suspected within the proximal tibia medially and anteriorly. G eodes also present in the subchondral location of the posterior patella. OTHER: There is tricompartmental marginal spurring. Some subcutaneous edema is also present. IMPRESSION: Osteoarthritis. 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 Possible degenerative te ar of the posterior horn of the medial meniscus. Possible strain or partial tear of the tibial collat eral ligament as described.
== END | disposition home or self-care (01) ==
LOC: RADMRIMAIN 09:31
PROVIDERS: ATTEND Orthopaedic Surgery
DX: M17.11 Unilateral primary osteoarthritis, right knee (principal); D48.0 Neoplasm of uncertain behavior of bone and articular cartilage

== ENCOUNTER → 2017-04-22 | Outpatient (CLI) | payer MEDICARE ==
[2017-04-22 09:02] LABS: Potassium 4.6 mmol/L (3.5-5.1)
[2017-04-22 09:06] LABS: Basophils % (A) 1 %; CH 31.2; CHCM 33.5; Eosinophils # (A) 0.2 k/uL (0-0.7); Eosinophils % (A) 3 %; HCT 43.9 % (39.0-53.0); HDW 2.31; Luc # (Auto) 0.25; Luc % (Auto) 4; Lymphocytes # (A) 1.7 k/uL (1.0-4.8); Lymphocytes % (A) 28 %; MCH 31.8 pg (25.0-35.0); MCHC 34.1 g/dL (31.0-37.0); MCV 93.2 fL (80.0-100.0); Mean Platelet Volume 7.4; Monocytes # (A) 0.4 k/uL (0-1.0); Monocytes % (A) 7 %; Neutrophils # (A) 3.6 k/uL (1.3-7.7); Neutrophils % (A) 58 %; RBC 4.71 m/uL (4.30-5.90); RDW 12.7 % (11.5-15.5); WBC 6.1 k/uL (3.8-10.6); WBC (Perox) 6.25
== END | disposition home or self-care (01) ==
LOC: LABPAT 08:15
PROVIDERS: ATTEND Orthopaedic Surgery
DX: Z01.810 Encounter for preprocedural cardiovascular examination (principal); M23.91 Unspecified internal derangement of right knee; Z01.812 Encounter for preprocedural laboratory examination
CPT/HCPCS: 80051; 85025

== ENCOUNTER 2017-05-14 10:13 | Day surgery (SDC) | payer MEDICARE ==
[2017-05-13 09:23] VITALS: BMI 27.9
--- NOTE | 2017-05-13 16:27 | HP ---
HISTORY AND PHYSICAL DATE OF SURGERY: 05/14/2017 Frederick Read is a 72-year-old patient seen with progressive right knee pain. After treatment options were discussed, he elected to proceed with right knee arthroscopy. Consent was obtained. PAST MEDICAL HISTORY: 1. Hypertension. 2. Hyperlipidemia. 3. Seizure disorder. PAST SURGICAL HISTORY: 1. Herniorrhaphy. 2. Left total knee arthroplasty. 3. Shoulder arthroscopy. DAILY MEDICATIONS: 1. Benazepril. 2. Dilantin. 3. Lipitor. 4. Metoprolol. 5. Plavix. ALLERGIES: NONE. SOCIAL HISTORY: Patient denies current tobacco use. PHYSICAL EVALUATION OF THE RIGHT KNEE: Range of motion is 0 to 120 degrees. There is a mild effusion. Tenderness, medial joint line. Positive medial David's. Ligaments stable. Hip rotation without pain. Distal neurovascular exam intact. RADIOGRAPHS: Radiographs of the right knee revealed mild osteoarthritis. MRI right knee revealed medial meniscal tear. IMPRESSION: Internal derangement, right knee, with medial meniscal tear. PLAN: Right knee arthroscopy with partial meniscectomy and debridement. MMODL / IJN: [id number] /
[~2017-05-14 10:13] MED LIST changes: -ACETAMINOPHEN TAB 500 MG TAB PO ONE; +DEXAMETHASONE SOD PHOSPHATE 10 MG/ML 1 ML VIAL IV ONE; -HYDROmorphone 1 MG/ML 1 ML SYRINGE IVP PRN; +LACTATED RINGERS 1,000 ML IV SCH; -MELOXICAM 7.5 MG TAB PO ONE; -MIDAZOLAM 2 MG/2 ML VIAL IV PRN; -TRANEXAMIC ACID 1,000 MG in SODIUM CHLORIDE 0.9% 100 ML IVPB ONE; +ceFAZolin 1,000 MG in DEXTROSE/WATER 1 50ML.BAG IV ONE; -ceFAZolin 2 GM in SODIUM CHLORIDE 0.9% 100 ML IVPB ONE; -fentaNYL (PF) 50 MCG/ML 20 ML VIAL IVP PRN
[2017-05-14] MEDS ORDERED: LIDOCAINE 1% 20 ML VIAL (10MG/ML) FOR IV START INTRADERMA ONE (10:43)
[2017-05-14] MEDS ORDERED: LACTATED RINGERS 1,000 ML IV ONE ×2 (10:43→13:10)
[2017-05-14] MEDS ORDERED: LIDOCAINE 1% INJ 10MG/ML (20 ML MDV) ONE (11:43)
[2017-05-14] MEDS ORDERED: PROPOFOL 10 MG/ML 20 ML VIAL IV ONE (11:43)
[2017-05-14] MEDS ORDERED: MIDAZOLAM 2 MG/2 ML VIAL ONE (11:43)
[2017-05-14] MEDS ORDERED: fentaNYL (PF) 50 MCG/ML 2 ML AMP ONE (11:43)
[2017-05-14] MEDS ORDERED: BUPIVACAINE (PF) 0.25% 30 ML VIAL SQ ONE ×2 (12:06→12:24)
[2017-05-14 12:37] VITALS: TEMP 97
[2017-05-14] MEDS: HYDROmorphone 1 MG/ML 1 ML SYRINGE IVP PRN ×4 (12:41→13:04)
[2017-05-14] MEDS ORDERED: KETOROLAC 30 MG/ML 1 ML VIAL IVP ONE (12:41)
--- NOTE | 2017-05-14 12:41 | P.OP ---
Date of Procedure: 05/14/17 Preoperative Diagnosis: Internal derangement right knee Postoperative Diagnosis: 1. Tear medial meniscus right knee 2. Grade 2/3 chondromalacia medial femoral condyle right knee 3. Grade 2 chondromalacia patella right knee 4. Reactive synovitis medial and suprapatellar compartments right knee Procedure(s) Performed: 1. Arthroscopic partial medial meniscectomy right knee 2. Arthroscopic chondroplasty medial femoral condyle right knee 3. Arthroscopic chondroplasty patella right knee 4. Arthroscopic partial synovectomy medial and suprapatellar compartments right knee Implants: None Anesthesia: JENNIFERA, local Surgeon: Kyler Hendricks Estimated Blood Loss (ml): 10 Pathology: none sent Condition: stable Disposition: PACU Indications for Procedure: 72-year-old patient seen with progressive right knee pain. After treatment options were discussed, he elected to proceed with arthroscopy. Operative Findings: See description of procedure Description of Procedure: Patient was taken to the operative suite. Patient underwent a general anesthetic by the department of anesthesia. Patient was given preoperative antibiotics. The right lower extremity was placed in a well-padded arthroscopic leg currie. The right leg was prepped and draped in the normal sterile orthopedic fashion. A lateral parapatellar and suprapatellar incision was made. Trochars were inserted. Arthroscopy was initiated. Suprapatellar pouch revealed diffuse thick reactive synovitis. The patellofemoral joint appeared to articulate congruently. There was grade 2 chondromalacia of the patella with some osteochondral tears present.. The scope was guided into the medial gutter. No loose bodies or plica were identified. The scope was then guided into the medial compartment. A medial parapatellar incision was made. Trocar inserted followed by probe. There was a complex tear of the posterior horn medial meniscus extending into the midbody. There were grade 2/3 chondral malacia changes the medial femoral condyle with some osteochondral tears. There were grade 2 chondromalacia changes of the medial tibial plateau, no osteochondral tears present. Reactive synovitis anteriorly. A partial medial meniscectomy was performed down to stable tissue. I performed a chondroplasty medial femoral condyle down to stable tissue and partial synovectomy. The residual meniscus was noted to be stable as was the residual osteochondral surface of the medial femoral condyle. Scope and probe were then guided into the intercondylar notch. Cruciates were identified, probed and found to be stable. The scope and probe were then guided into lateral compartment. The lateral meniscus was probed and found to be stable. There were some grade 1 chondromalacia changes lateral compartment but no osteochondral tears present. There were no loose bodies. There was no synovitis present. The scope was in guided back into the suprapatellar compartment. I introduced a motorized shaver into the super compartment. I debrided piecemeal fragments of meniscus. I performed a chondroplasty the patella down to stable tissue. I performed a partial synovectomy. The shaver was removed. I took one more look around the entire knee, no residual debris. Instruments were now removed from the joint. The joint was infiltrated with .25% Marcaine. Steri-Strips were applied to the portal sites. Sterile dressings were applied. The patient was placed into a NATALIE hose. No tourniquet was utilized. The patient was awakened, transferred to a bed and taken to recovery stable satisfactory condition.
[2017-05-14 13:46] VITALS: PULSE 63
[2017-05-14] MEDS ORDERED: ONDANSETRON 4 MG/2 ML VIAL IVP ONE (13:55)
[2017-05-14] MEDS ORDERED: HYDROcodone/APAP 5-325MG 1 EACH TAB PO ONE (14:07)
[2017-05-14 14:09] VITALS: RESP 16
[2017-05-14 14:20] VITALS: BP 143/75
[2017-05-14] MEDS ORDERED: METOCLOPRAMIDE 5 MG/ML 2 ML VIAL IVP ONE (14:26)
== END 2017-05-14 15:21 | disposition home or self-care (01) ==
LOC: OR 10:13
PROVIDERS: ATTEND Orthopaedic Surgery
DX: S83.241A Other tear of medial meniscus, current injury, right knee, initial encounter (principal); X58.XXXA Exposure to other specified factors, initial encounter; M22.41 Chondromalacia patellae, right knee; M65.861 Other synovitis and tenosynovitis, right lower leg; Z87.891 Personal history of nicotine dependence; I25.10 Atherosclerotic heart disease of native coronary artery without angina pectoris; I10 Essential (primary) hypertension; E78.5 Hyperlipidemia, unspecified; G40.909 Epilepsy, unspecified, not intractable, without status epilepticus; K21.9 Gastro-esophageal reflux disease without esophagitis; I25.2 Old myocardial infarction; Z95.5 Presence of coronary angioplasty implant and graft; Z79.02 Long term (current) use of antithrombotics/antiplatelets; Z79.899 Other long term (current) drug therapy; Z88.8 Allergy status to other drugs, medicaments and biological substances
CPT/HCPCS: 29881; J2250; J1100; J2765; J2405; J2001; J3010; J1885; J1170; J0690; J2704

== ENCOUNTER 2018-01-24 08:50 | Observation (INO) | payer MEDICARE ==
[2018-01-24] MEDS ORDERED: ASPIRIN 81 MG PO STA (09:13)
[2018-01-24] MEDS ORDERED: SODIUM CHLORIDE 0.9% 1,000 ML IV STA (09:13)
[2018-01-24] MEDS ORDERED: NITROGLYCERIN OINT 1 INCH/GM PACKET TOPICAL STA (09:13)
[2018-01-24 09:30] LABS: Basophils % (A) 0 %; Eosinophils # (A) 0.2 k/uL (0-0.7); Eosinophils % (A) 4 %; HGB 14.9 gm/dL (13.0-17.5); Lymphocytes # (A) 1.7 k/uL (1.0-4.8); Lymphocytes % (A) 29 %; MCH 31.4 pg (25.0-35.0); MCHC 33.7 g/dL (31.0-37.0); Mean Platelet Volume 7.9; Monocytes # (A) 0.4 k/uL (0-1.0); Monocytes % (A) 8 %; Neutrophils # (A) 3.3 k/uL (1.3-7.7); Neutrophils % (A) 56 %; Platelet Count 177 k/uL (150-450); RBC 4.74 m/uL (4.30-5.90); RDW 12.5 % (11.5-15.5); WBC 5.8 k/uL (3.8-10.6)
[2018-01-24 09:39] LABS: INR 1.2 (<1.2); Partial Thromboplastin Time 24.9 sec (22.0-30.0); Prothrombin Time 11.3 sec (9.0-12.0)
[2018-01-24 09:40] VITALS: RESP 16
[2018-01-24 09:40] LABS: ALT 37 U/L (21-72); AST 33 U/L (17-59); Albumin 3.9 g/dL (3.5-5.0); Anion Gap 12 mmol/L; Blood Urea Nitrogen 20 mg/dL (9-20); Calcium 8.8 mg/dL (8.4-10.2); Carbon Dioxide 22 mmol/L (22-30); Chloride 108 mmol/L (98-107); Glucose 98 mg/dL (74-99); Magnesium 1.7 mg/dL (1.6-2.3); Potassium 4.6 mmol/L (3.5-5.1); Sodium 142 mmol/L (137-145); Total Bilirubin 0.4 mg/dL (0.2-1.3); Total Protein 6.3 g/dL (6.3-8.2)
[2018-01-24 09:41] LABS: Alkaline Phosphatase 78 U/L (38-126)
[2018-01-24 09:49] LABS: Creatine Kinase 156 U/L (55-170)
--- NOTE | 2018-01-24 09:53 | XR ---
EXAMINATION TYPE: XR chest 2V DATE OF EXAM: 01/24/2018 COMPARISON: 08/04/2014 HISTORY: Chest pain with history of heart attack. TECHNIQUE: Frontal and lateral views of the chest are obtained. FINDINGS: There is no focal air space opacity, pleural effusion, or pneumothorax seen. Patchy left b asilar subsegmental atelectasis is linear. The cardiac silhouette size is within normal limits. Th e osseous structures are intact. Mild multilevel degenerative changes of the thoracic spine are noted . Chronic right acromioclavicular separation is seen. IMPRESSION: No acute cardiopulmonary process.
[2018-01-24 10:02] LABS: Troponin I <0.012 ng/mL (0.000-0.034)
[2018-01-24 10:06] LABS: Creatine Kinase MB 3.3 ng/mL (0.0-2.4)
[2018-01-24] MEDS ORDERED: NITROGLYCERIN SL TABS 0.4 MG TAB SUBLINGUAL PRN (11:15)
[2018-01-24] MEDS ORDERED: MORPHINE ORAL SOLN 10 MG/5 ML CUP PO PRN (11:15)
--- NOTE | 2018-01-24 11:15 | ED ---
Chest Pain HPI - General Chief Complaint: Chest Pain Stated Complaint: Chest discomfort Time Seen by Provider: 01/24/18 09:04 Source: patient Mode of arrival: wheelchair Limitations: no limitations - History of Present Illness Initial Comments: 72 years old gentleman with a history of heart disease he had a [address] first one back in 2002 second one was back in 2013 presents with the chest pain started 5 AM this morning he had to 5 different episodes of chest pain one or apart he was exerting himself initially but then the other episodes came in he was resting he uses nitro and pain went away yesterday pain-free at this point. He denies any shortness of breath no nausea no vomiting no cold sweats no pleuritic chest pain at this point either. Review of system is unremarkable otherwise - Related Data Home Medications Medication Instructions Recorded Confirmed Aspirin EC [Ecotrin] 325 mg PO DAILY 01/24/18 01/24/18 Atorvastatin [Lipitor] 40 mg PO DAILY 01/24/18 01/24/18 Benazepril HCl 10 mg PO BID 01/24/18 01/24/18 Isosorbide Mononitrate ER [Imdur] 30 mg PO DAILY 01/24/18 01/24/18 Phenytoin Sodium Extended 200 mg PO BID 01/24/18 01/24/18 [Dilantin] Allergies Allergy/AdvReac Type Severity Reaction Status Date / Time quinine AdvReac CHILLS Verified 01/24/18 09:10 Review of Systems ROS Statement: Those systems with pertinent positive or pertinent negative responses have been documented in the HPI. ROS Other: All systems not noted in ROS Statement are negative. EKG Findings - EKG Comments: EKG Findings:: EKG is sinus bradycardia ventricular rate is 47 ND interval is 184 QRS duration is 82 QT/QTc is 494/437, review of this EKG reveals T-wave inversion in lead [address] elevation or ST depression noticed in other leads Past Medical History Past Medical History: Coronary Artery Disease (CAD), Hyperlipidemia, Hypertension, Myocardial Infarction (DC), Seizure Disorder Additional Past Medical History / Comment(s): History of subdural hematoma, had seizure fell and hit head. Last Myocardial Infarction Date:: unk History of Any Multi-Drug Resistant Organisms: None Reported Past Surgical History: Appendectomy, Heart Catheterization With Stent, Hernia Repair, Orthopedic Surgery, Tonsillectomy Additional Past Surgical History / Comment(s): rotator cuff repair, x2 lt knee arthroscopies/steroid injection to that knee, 2 heart stents Past Anesthesia/Blood Transfusion Reactions: No Reported Reaction Date of Last Stent Placement:: unk Past Psychological History: No Psychological Hx Reported Smoking Status: Never smoker Past Alcohol Use History: None Reported, Rare Past Drug Use History: None Reported - Past Family History Mother Family Medical History: No Reported History Father Family Medical History: Coronary Artery Disease (CAD) General Exam - General Exam Comments Initial Comments: General: The patient is awake and alert, in no distress, and does not appear acutely ill. Skin: Skin is warm and dry and no rashes or lesions are noted. Eye: Pupils are equal, round and reactive to light, extra-ocular movements are intact; there is normal conjunctiva bilaterally. Ears, nose, mouth and throat: There are moist mucous membranes and no oral lesions. Neck: The neck is supple, there is no tenderness or JVD. Cardiovascular: There is a regular rate and rhythm. No murmur, rub or gallop is appreciated. Respiratory: To auscultation bilateral, no wheezing no rhonchi no distress respiratory reyes noticed Gastrointestinal: Soft, non-distended, non-tender abdomen without masses or organomegaly noted. There is no rebound or guarding present. Bowel sounds are unremarkable. Back: There is no tenderness to palpation in the midline. There is no obvious deformity. Musculoskeletal: Normal ROM, no tenderness, There is no pedal edema. There is no calf tenderness or swelling. No cords were appreciated. Neurological: CN II-XII intact, Cranial nerves III through XII are intact. There are no obvious motor or sensory deficits. Coordination appears grossly intact. Speech is normal. Psychiatric: Cooperative, appropriate mood & affect, normal judgment. Limitations: no limitations Course Vital Signs 01/24/18 01/24/18 01/24/18 08:55 09:39 10:14 Temperature 97.3 F L Pulse Rate 50 L 50 L 50 L Respiratory 18 16 16 Rate Blood Pressure 148/81 135/72 135/72 O2 Sat by Pulse 97 97 99 Oximetry Upon reassessment noticed that the his CBC, INR, troponin, compressive metabolic panel, chest x-ray are unremarkable KG didn't show bradycardia but no ST elevation or ST depression noticed. Considering his coronary artery disease and 5 episodes of chest pain considering disc factors and his age he ought to be ears showed 424 hours cardiology consult be admitted to Dr. Lynn's service Disposition Clinical Impression: Chest pain, History of coronary artery disease Disposition: ADMITTED IP TO THIS HOSP Condition: Good Referrals: Mk Carrion MD [Primary Care Provider] - 1-2 days
[2018-01-24 12:48] VITALS: BMI 27.4
[2018-01-24 15:50] LABS: Creatine Kinase 131 U/L (55-170)
[2018-01-24 16:03] LABS: Troponin I <0.012 ng/mL (0.000-0.034)
[2018-01-24 16:06] LABS: Creatine Kinase MB 2.9 ng/mL (0.0-2.4)
[2018-01-24] MEDS ORDERED: TEMAZEPAM 15 MG CAP PO PRN (18:18)
[2018-01-24] MEDS ORDERED: ACETAMINOPHEN TAB 500 MG TAB PO PRN (18:18)
[2018-01-24] MEDS ORDERED: ALPRAZolam 0.25 MG TAB PO PRN (18:18)
[2018-01-24] MEDS ORDERED: Magnesium Replacement Protocol 1 EACH MISC MISCELLANE PRN (18:56)
[2018-01-24] MEDS: MAGNESIUM SULFATE-D5W PMX 1 GM in DEXTROSE/WATER 1 100ML.BAG IVPB SCH ×2 (19:51→23:32)
[2018-01-24] MEDS: PHENYTOIN SODIUM EXTENDED 100 MG CAP PO SCH (19:55)
--- NOTE | 2018-01-24 21:20 | HP ---
HISTORY AND PHYSICAL CHIEF COMPLAINT: Chest pain. HISTORY OF PRESENT ILLNESS: This 72-year-old gentleman with a past history of CAD, history of hypertension, hyperlipidemia, seizure disorder, subdural hematoma, history of seizures, history of CAD stent being followed by Dr. Mk Carrion in the outpatient setting is complaining of chest pain since today. It was achy funny type of feeling mainly on the left side probably brought on by exertion mild to moderate intensity without any radiation of the symptoms. Because of persistent symptoms, patient came to [facility] and admitted for evaluation and treatment. The patient had stents in 2002 in 2013. The initial troponins are negative. CK-MB is slightly elevated at 2.9, and the EKG done on admission showed sinus bradycardia with some ST-T changes and a chest x-ray was done on admission showed no active acute medical process. There is no history of fever, rigors or chills. No history of headache, loss of consciousness, seizures. PAST MEDICAL HISTORY: Of CAD stent, hypertension, hyperlipidemia, myocardial infarction, seizure disorder. MEDICATIONS: Prior to admission include home medications are: 1. Dilantin 200 mg p.o. b.i.d. 2. Imdur 30 mg p.o. daily. 3. Benazepril 10 mg p.o. b.i.d. 4. Lipitor 40 mg q.h.s. 5. Ecotrin 325 mg daily. ALLERGIES: QUININE. FAMILY HISTORY: History of coronary artery disease in the family. SOCIAL HISTORY: No history of smoking. No history of alcohol intake. REVIEW OF SYSTEMS: ENT: No diminished vision. No diminished hearing. Cardiovascular: As mentioned earlier. Respiratory: As mentioned earlier. GI : No nausea or vomiting. : No dysuria or hematuria. Nervous system: No numbness, weakness. Allergy/Immunology: No asthma or hayfever. Musculoskeletal as mentioned earlier. Hematology/Oncology: No history of anemia. Endocrine: No history of diabetes, hypothyroidism. Constitutional: As mentioned earlier. Dermatology: Negative. Rheumatology: Negative. Psychiatry: As mentioned earlier. PHYSICAL EXAMINATION: VITAL SIGNS: Pulse 60, blood pressure 144/80, respirations 16, temperature 97.1, pulse ox 94% on room air. HEENT: Conjunctivae normal. Oral mucosa moist. NECK: No jugular venous distention. CARDIOVASCULAR: S1, S2 muffled. RESPIRATORY: Breath sounds diminished in the bases. No rhonchi. No crackles. ABDOMEN: Soft, nontender. No mass palpable. LEGS: No edema and no swelling. NERVOUS SYSTEM: Higher functions as mentioned earlier. Moves all four extremities. No focal motor-sensory deficits. LYMPHATICS: No lymph nodes palpable in the neck, axillae or groin. SKIN no ulcer, rash or bleeding. JOINTS: No active deforming arthropathy. LABS: CBC within normal limits. The troponins are negative. CK-MB is 3.3 and 2.9. ASSESSMENT: 1. Chest pain possible unstable angina. 2. CK-MB 3.3 with normal troponins. 3. History of CAD stent. 4. Hypertension. 5. Hyperlipidemia. 6. History of seizure disorder. 7. History of subdural hematoma. 8. History of degenerative joint disease. 9. History of hernia repair. RECOMMENDATIONS AND DISCUSSION: In this 72-year-old gentleman who presented with multiple complex medical issues, we will monitor the patient closely, continue the current medications, management and symptomatic treatment. Rule out myocardial infarction. Cardiology consultation. We will resume the home medications and coronary artery syndrome protocol. Repeat labs will be ordered. Otherwise prognosis guarded because of multiple complex medical issues and further recommendations to follow. Copy of dictation forwarded to Dr. Carrion who is the primary physician. MMODL / IJN: [id number] /
[2018-01-24 21:29] LABS: Creatine Kinase 121 U/L (55-170)
[2018-01-24 21:41] LABS: Troponin I <0.012 ng/mL (0.000-0.034)
[2018-01-24 21:43] LABS: Creatine Kinase MB 2.7 ng/mL (0.0-2.4)
[2018-01-24 23:34] VITALS: TEMP 97.2
[2018-01-25 06:40] LABS: Basophils % (A) 0 %; Eosinophils # (A) 0.2 k/uL (0-0.7); Eosinophils % (A) 5 %; HCT 46.5 % (39.0-53.0); HGB 15.4 gm/dL (13.0-17.5); Lymphocytes # (A) 1.7 k/uL (1.0-4.8); Lymphocytes % (A) 32 %; MCH 31.6 pg (25.0-35.0); MCHC 33.1 g/dL (31.0-37.0); MCV 95.2 fL (80.0-100.0); Mean Platelet Volume 7.8; Monocytes # (A) 0.4 k/uL (0-1.0); Monocytes % (A) 8 %; Neutrophils # (A) 2.8 k/uL (1.3-7.7); Neutrophils % (A) 53 %; Platelet Count 157 k/uL (150-450); RBC 4.88 m/uL (4.30-5.90); RDW 13.8 % (11.5-15.5); WBC 5.3 k/uL (3.8-10.6)
[2018-01-25 06:57] LABS: Anion Gap 10 mmol/L; Blood Urea Nitrogen 16 mg/dL (9-20); Carbon Dioxide 26 mmol/L (22-30); Chloride 108 mmol/L (98-107); Cholesterol 148 mg/dL (<200); Glucose 93 mg/dL (74-99); HDL Cholesterol 54 mg/dL (40-60); LDL Cholesterol,Calculated 66 mg/dL (0-99); Magnesium 2.2 mg/dL (1.6-2.3); Potassium 4.4 mmol/L (3.5-5.1); Sodium 144 mmol/L (137-145); Triglycerides 138 mg/dL (<150)
[2018-01-25 07:36] VITALS: BP 152/68; PULSE 51
[2018-01-25] MEDS: PHENYTOIN SODIUM EXTENDED 100 MG CAP PO SCH (07:37)
[2018-01-25] MEDS ORDERED: ASPIRIN 325 MG TAB PO SCH (09:00)
[2018-01-25] MEDS ORDERED: ATORVASTATIN 40 MG TAB PO SCH (09:00)
[2018-01-25] MEDS ORDERED: ISOSORBIDE MONONITRATE ER 30 MG TAB.ER.24H PO SCH (09:00)
[2018-01-25] MEDS ORDERED: LISINOPRIL 20 MG TAB PO SCH (09:00)
--- NOTE | 2018-01-25 21:51 | CONS ---
CONSULTATION Mr. Frederick Read is a 72-year-old gentleman with a known history of CAD, previous PCI in 2013 or 2014. Also has hypertension and sees Dr. Vaughn in the outpatient setting. This gentleman came into the hospital with an episode of chest tightness and pressure. At the time of my evaluation, his symptoms of chest pain were fully resolved. He is actually feeling better. His enzymes are also within normal limits. Apparently on questioning, this gentleman woke up in the morning at 5:00 am and he had episodes of what he describes as sharp pains in the chest, lasting about 5-10 seconds initially at rest and when he exerts himself also, he felt the same pain. He tried to take a nitroglycerin but the pain was so brief and nitroglycerin really did not seem to give him any relief. On one count he said he thought he had relief but he is not sure. The pain has resolved and the quality of pain is atypical. On other hand, he has done some physical activity, quite a bit, without any symptoms. This gentleman has history of prior PCI and also significant risk factors including hypertension and hyperlipidemia. Given the symptoms, I am recommending that we will treat him with same medications, not do strenuous activity and upon discharge today he can see Dr. Vaughn and follow up with him for outpatient stress testing. PAST MEDICAL HISTORY: 1. Remarkable for CAD with previous with previous PCI that was performed in either 2013 or 2014. 2. Seizure disorder. 3. Hypertension. 4. Hyperlipidemia. 5. Status post appendectomy, hernia repair, orthopedic surgery, tonsillectomy and rotator cuff surgery. This gentleman underwent stenting of a PDA branch of right coronary artery that was performed by Dr. Solomon Munoz in January 2014. At that time, he had only the PDA disease and the rest of the anatomy did not reveal any significant disease. EKG today revealed a sinus mechanism with sinus bradycardia, no acute changes. EXAMINATION: Blood pressure is 140/70, pulse rate is 55 per minute, regular. HEENT unremarkable. Fundus was not examined by me. NECK: Supple. There is no JVD. I do not hear a carotid bruit. There is no thyromegaly. Heart exam reveals S1, S2 heard normally, short systolic murmur at left sternal border. Lungs are clear. Abdomen is soft, nontender. Lower extremities reveal normal pulses. No edema. Central nervous system is normal. EKG revealed sinus bradycardia, no acute changes. IMPRESSION: 1. Atypical chest pain in a patient with known CAD, previous PCI of a PDA branch of RCA performed in 2013. 2. Hypertension. 3. Hyperlipidemia. RECOMMENDATIONS: I am recommending that we can increase activity and if he has no further symptoms he can be discharged with the understanding he should see Dr. Vaughn within the next 1 week for any outpatient stress testing. I discussed my thoughts in detail with the patient. Thank you very much for the consult. MMODL / IJN: [id number] /
--- NOTE | 2018-01-26 06:19 | DS ---
DISCHARGE SUMMARY FINAL DIAGNOSES: 1. Chest pain, myocardial infarction ruled out. 2. CK-MB 3.3 with normal troponin. 3. History of coronary artery disease /stent. 4. Hypertension. 5. Hyperlipidemia. 6. History of seizure disorder. DISCHARGE DISPOSITION: The patient is being discharged in stable condition with guarded prognosis. HISTORY OF PRESENT ILLNESS: This 72-year-old gentleman with a past medical history of multiple medical problems, being followed by Dr. Celestino Carrion in the outpatient setting was admitted to the hospital with chest pain. Myocardial infarction ruled out. Patient was seen by Cardiology. Recommend outpatient followup. On exam vitals are stable. Cardiovascular: S1, S2. Abdomen soft. Nervous system: No focal deficits. DISCHARGE ADVICE AND MEDICATIONS: 1. Diet is cardiac diet. 2. Activity limited until followup. 3. Follow up with Dr. Mk Carrion in one to two days. 4. Follow up with Dr. Vaughn as recommended. MEDICATIONS: 1. Ecotrin 320 mg p.o. daily. 2. Lipitor 40 mg q.h.s. 3. Benazepril 10 mg p.o. b.i.d. 4. Imdur ER 30 mg daily. 5. Dilantin 200 mg p.o. b.i.d. MMODL / IJN: [id number] /
[2018-01-26] MEDS ORDERED: ASPIRIN 81 MG PO SCH (09:00)
== END 2018-01-25 11:54 | disposition home or self-care (01) ==
LOC: EC 08:50 → 6SEL 11:15
PROVIDERS: ADMIT Hospitalist; ATTEND Hospitalist
DX: R07.89 Other chest pain (principal); R74.8 Abnormal levels of other serum enzymes; I25.10 Atherosclerotic heart disease of native coronary artery without angina pectoris; I10 Essential (primary) hypertension; E78.5 Hyperlipidemia, unspecified; M19.90 Unspecified osteoarthritis, unspecified site; G40.909 Epilepsy, unspecified, not intractable, without status epilepticus; Z86.79 Personal history of other diseases of the circulatory system; I25.2 Old myocardial infarction; Z95.5 Presence of coronary angioplasty implant and graft; Z79.82 Long term (current) use of aspirin; Z79.899 Other long term (current) drug therapy; Z88.8 Allergy status to other drugs, medicaments and biological substances; Z82.49 Family history of ischemic heart disease and other diseases of the circulatory system
CPT/HCPCS: 36415; 71046; 80048; 80053; 80061; 82550; 82553; 83735; 84484; 85025; 85610; 85730; 93005; 94760; 96361; 96365; 96366; 99285

== ENCOUNTER 2018-07-18 01:35 | Observation (INO) | payer MEDICARE ==
[2018-07-18] MEDS ORDERED: MORPHINE SULFATE 4 MG/ML SYRINGE IVP STA ×2 (02:19→03:17)
[2018-07-18] MEDS ORDERED: ONDANSETRON 4 MG/2 ML VIAL IVP STA (02:19)
--- NOTE | 2018-07-18 02:44 | ED ---
General Adult HPI - General Source: patient, RN notes reviewed Mode of arrival: wheelchair Limitations: no limitations <Timo Johnson P - Last Filed: 07/18/18 04:42> <Cherri Lange P - Last Filed: 07/18/18 22:19> - General Chief complaint: Back Pain/Injury Stated complaint: Back Pain Time Seen by Provider: 07/18/18 02:09 - History of Present Illness Initial comments: 73-year-old male presents to the emergency department for a chief complaint of right lower back pain x 1 day. Patient states this pain began earlier today. He was seen at [facility] and given 60 mg of Toradol without relief. He was also given a Medrol Dosepak but has not been able to have that filled. Patient states the pain is a sharp pain shooting down his right leg to his right knee. He states the pain is causing him nausea. He states he has chronic back pain but this feels different than normal. Patient states he has some difficulty ambulating on the right leg. He states he did shovel some snow yesterday but denies any other injuries. Patient denies any chest or abdominal pain. Patient has no other complaints at this time including shortness of breath , chest pain, abdominal pain, headache, or visual changes. (Timo Johnson) - Related Data Home Medications Medication Instructions Recorded Confirmed Aspirin EC [Ecotrin] 325 mg PO DAILY 01/24/18 07/18/18 Atorvastatin [Lipitor] 40 mg PO HS 01/24/18 07/18/18 Benazepril HCl 10 mg PO BID 01/24/18 07/18/18 Isosorbide Mononitrate ER [Imdur] 30 mg PO DAILY 01/24/18 07/18/18 Phenytoin Sodium Extended 200 mg PO BID 01/24/18 07/18/18 [Dilantin] Cholecalciferol [Vitamin D3] 1,000 unit PO DAILY 07/18/18 07/18/18 Multivit-Min/FA/Lycopen/Lutein 1 tab PO DAILY 07/18/18 07/18/18 [Centrum Silver Tablet] [place]-3 Fatty Acids [[place]-3] 1,000 mg PO DAILY 07/18/18 07/18/18 Allergies Allergy/AdvReac Type Severity Reaction Status Date / Time quinine AdvReac CHILLS Verified 07/18/18 08:05 Review of Systems ROS Other: All systems not noted in ROS Statement are negative. <Timo Johnson P - Last Filed: 07/18/18 04:42> ROS Other: All systems not noted in ROS Statement are negative. <Sis Langeica P - Last Filed: 07/18/18 22:19> ROS Statement: Those systems with pertinent positive or pertinent negative responses have been documented in the HPI. Past Medical History Past Medical History: Coronary Artery Disease (CAD), Hyperlipidemia, Hypertension, Myocardial Infarction (MA), Seizure Disorder Additional Past Medical History / Comment(s): History of subdural hematoma, had seizure fell and hit head. back pain Last Myocardial Infarction Date:: unk History of Any Multi-Drug Resistant Organisms: None Reported Past Surgical History: Appendectomy, Heart Catheterization With Stent, Hernia Repair, Orthopedic Surgery, Tonsillectomy Additional Past Surgical History / Comment(s): rotator cuff repair, x2 right knee arthroscopies/steroid injection to right knee, 2 heart stents Past Anesthesia/Blood Transfusion Reactions: No Reported Reaction Date of Last Stent Placement:: unk Past Psychological History: No Psychological Hx Reported Smoking Status: Never smoker Past Alcohol Use History: Rare Past Drug Use History: None Reported - Past Family History Mother Family Medical History: No Reported History Father Family Medical History: Coronary Artery Disease (CAD) <Timo Johnson P - Last Filed: 07/18/18 04:42> General Exam Limitations: no limitations General appearance: anxious Head exam: Present: atraumatic, normocephalic, normal inspection Eye exam: Present: normal appearance, PERRL, EOMI. Absent: scleral icterus, conjunctival injection, periorbital swelling ENT exam: Present: normal exam, mucous membranes moist Neck exam: Present: normal inspection, full ROM. Absent: tenderness, meningismus, lymphadenopathy Respiratory exam: Present: normal lung sounds bilaterally. Absent: respiratory distress, wheezes, rales, rhonchi, stridor Cardiovascular Exam: Present: regular rate, normal rhythm, normal heart sounds. Absent: systolic murmur, diastolic murmur, rubs, gallop, clicks GI/Abdominal exam: Present: soft, normal bowel sounds. Absent: distended, tenderness, guarding, rebound, rigid Extremities exam: Present: normal capillary refill (Capillary refill less than 2 seconds and DP pulse 2+ and right lower extremity) Back exam: Present: other (Unable to tolerate range of motion). Absent: tenderness (No significant tenderness of the lumbar spine or low back) Neurological exam: Present: alert, oriented X3, CN II-XII intact Psychiatric exam: Present: normal affect, normal mood <Timo Johnson P - Last Filed: 07/18/18 04:42> Vital Signs 07/18/18 07/18/18 07/18/18 01:50 02:51 03:24 Temperature 97.2 F L Pulse Rate 71 78 Pulse Rate [ 71 Carburetor Rebuilder ] Respiratory 18 19 Rate Blood Pressure 194/92 199/106 O2 Sat by Pulse 96 92 L Oximetry 07/18/18 07/18/18 07/18/18 03:50 04:06 05:09 Temperature Pulse Rate 86 86 85 Pulse Rate [ Carburetor Rebuilder ] Respiratory 18 18 19 Rate Blood Pressure 180/91 172/94 179/82 O2 Sat by Pulse 95 96 95 Oximetry 07/18/18 05:45 Temperature 98.3 F Pulse Rate 82 Pulse Rate [ Carburetor Rebuilder ] Respiratory 17 Rate Blood Pressure 172/96 O2 Sat by Pulse 94 L Oximetry EKG Findings - EKG Comments: EKG Findings:: EKG 2:29 - sinus rhythm, ventricular rate 71, QRS duration 88, PACs and PVCs present, no evidence of ST elevation or depression. EK:18 - sinus rhythm, ventricular rate 82, SD interval 170, QRS ratio 88, QTc 474, no evidence of ST elevation or depression <Timo Johnson P - Last Filed: 07/18/18 04:42> Medical Decision Making - Lab Data Result diagrams: 07/18/18 02:15 07/18/18 02:15 - EKG Data -: EKG Interpreted by Nh (and Dr Lange) <Timo Johnson P - Last Filed: 07/18/18 04:42> - Lab Data Result diagrams: 07/18/18 02:15 07/18/18 02:15 <Cherri Lange P - Last Filed: 07/18/18 22:19> - Medical Decision Making 83-year-old male presents to the emergency department for chief complaint of neck pain times one day. Patient states the pain starts in his right side of the low back and radiates down to the right knee. Patient does have a history of chronic back but states this is somewhat worse than normal. On exam patient was appear to be in pain. Neurovascular intact in the right lower extremity. Patient unable to demonstrate range of motion at this time due to pain. Minimal tenderness noted throughout the right low back or lumbar spine. CT angiogram of the aorta with runoff was ordered to rule out dissection which was negative, no evidence of hemodynamic stenosis, aneurysm, or dissection. Incidental findings of a large gallbladder and interstitial infiltrates in both lower lobes. This could be fibrosis and atelectasis, patient does not have a cough or fever. Patient does have lumbar level scoliosis. CT lumbar spine shows spondylitic changes with mild spinal stenosis at L4 to L5 and degenerative first-degree L4 to L5 spondylolisthesis without fracture. Patient was given 8 mg of morphine here in the emergency department. Patient is still complaining of pain. He has not feels that he can safely go home. Discussed with patient and his who feel admission is necessary at this time. Patient will be admitted for intractable back pain as well as fall risk. ( Timo Johnson P) Cell patient Patient appeared very uncomfortable on exam, abdominal exam revealed no pulsatile masses or bruits. Decision was made to perform a CT with lumbar recalls. Pain management was ordered. Patient received multiple doses of narcotic analgesia with no improvement and decision was made to admit the patient for pain management. (Cherri Lange) - Lab Data Lab Results 07/18/18 07/18/18 07/18/18 Range/Units 02:15 02:15 02:15 WBC 11.1 H (3.8-10.6) k/uL RBC 5.04 (4.30-5.90) m/uL Hgb 15.7 (13.0-17.5) gm/dL Hct 48.1 (39.0-53.0) % MCV 95.4 (80.0-100.0) fL MCH 31.1 (25.0-35.0) pg MCHC 32.6 (31.0-37.0) g/dL RDW 12.4 (11.5-15.5) % Plt Count 187 (150-450) k/uL Neutrophils % 83 % Lymphocytes % 11 % Monocytes % 4 % Eosinophils % 0 % Basophils % 0 % Neutrophils # 9.2 H (1.3-7.7) k/uL Lymphocytes # 1.2 (1.0-4.8) k/uL Monocytes # 0.5 (0-1.0) k/uL Eosinophils # 0.0 (0-0.7) k/uL Basophils # 0.0 (0-0.2) k/uL Sodium 139 (137-145) mmol/L Potassium 4.0 (3.5-5.1) mmol/L Chloride 105 (98-107) mmol/L Carbon Dioxide 24 (22-30) mmol/L Anion Gap 10 mmol/L BUN 22 H (9-20) mg/dL Creatinine 0.56 L (0.66-1.25) mg/dL Est GFR (CKD-EPI)AfAm >90 (>60 ml/min/1.73 sqM) Est GFR (CKD-EPI)NonAf >90 (>60 ml/min/1.73 sqM) Glucose 150 H (74-99) mg/dL Plasma Lactic Acid Froy 1.0 (0.7-2.0) mmol/L Calcium 9.6 (8.4-10.2) mg/dL Total Bilirubin 0.3 (0.2-1.3) mg/dL AST 33 (17-59) U/L ALT 43 (21-72) U/L Alkaline Phosphatase 93 (38-126) U/L Creatine Kinase 121 (55-170) U/L Total Protein 8.0 (6.3-8.2) g/dL Albumin 4.8 (3.5-5.0) g/dL Blood Type Blood Type Recheck Antibody Screen Spec Expiration Date 07/18/18 Range/Units 02:40 WBC (3.8-10.6) k/uL RBC (4.30-5.90) m/uL Hgb (13.0-17.5) gm/dL Hct (39.0-53.0) % MCV (80.0-100.0) fL MCH (25.0-35.0) pg MCHC (31.0-37.0) g/dL RDW (11.5-15.5) % Plt Count (150-450) k/uL Neutrophils % % Lymphocytes % % Monocytes % % Eosinophils % % Basophils % % Neutrophils # (1.3-7.7) k/uL Lymphocytes # (1.0-4.8) k/uL Monocytes # (0-1.0) k/uL Eosinophils # (0-0.7) k/uL Basophils # (0-0.2) k/uL Sodium (137-145) mmol/L Potassium (3.5-5.1) mmol/L Chloride (98-107) mmol/L Carbon Dioxide (22-30) mmol/L Anion Gap mmol/L BUN (9-20) mg/dL Creatinine (0.66-1.25) mg/dL Est GFR (CKD-EPI)AfAm (>60 ml/min/1.73 sqM) Est GFR (CKD-EPI)NonAf (>60 ml/min/1.73 sqM) Glucose (74-99) mg/dL Plasma Lactic Acid Froy (0.7-2.0) mmol/L Calcium (8.4-10.2) mg/dL Total Bilirubin (0.2-1.3) mg/dL AST (17-59) U/L ALT (21-72) U/L Alkaline Phosphatase (38-126) U/L Creatine Kinase (55-170) U/L Total Protein (6.3-8.2) g/dL Albumin (3.5-5.0) g/dL Blood Type O Positive Blood Type Recheck CABO Indicated Antibody Screen NEGATIVE Spec Expiration Date 07/21/2018 - 8277 Disposition Is patient prescribed a controlled substance at d/c from ED?: No Time of Disposition: 04:46 <Timo Johnson P - Last Filed: 07/18/18 04:42> <Cherri Lange P - Last Filed: 07/18/18 22:19> Clinical Impression: Intractable back pain, Risk for falls Disposition: ADMITTED IP TO THIS HOSP Condition: Good
[2018-07-18 02:45] LABS: Basophils % (A) 0 %; Eosinophils % (A) 0 %; HCT 48.1 % (39.0-53.0); HGB 15.7 gm/dL (13.0-17.5); Lymphocytes # (A) 1.2 k/uL (1.0-4.8); Lymphocytes % (A) 11 %; MCH 31.1 pg (25.0-35.0); MCHC 32.6 g/dL (31.0-37.0); MCV 95.4 fL (80.0-100.0); Mean Platelet Volume 7.7; Monocytes # (A) 0.5 k/uL (0-1.0); Monocytes % (A) 4 %; Neutrophils # (A) 9.2 k/uL (1.3-7.7); Neutrophils % (A) 83 %; Platelet Count 187 k/uL (150-450); RBC 5.04 m/uL (4.30-5.90); RDW 12.4 % (11.5-15.5); WBC 11.1 k/uL (3.8-10.6)
[2018-07-18 02:57] LABS: ALT 43 U/L (21-72); AST 33 U/L (17-59); Albumin 4.8 g/dL (3.5-5.0); Alkaline Phosphatase 93 U/L (38-126); Anion Gap 10 mmol/L; Blood Urea Nitrogen 22 mg/dL (9-20); Calcium 9.6 mg/dL (8.4-10.2); Carbon Dioxide 24 mmol/L (22-30); Chloride 105 mmol/L (98-107); Glucose 150 mg/dL (74-99); Sodium 139 mmol/L (137-145); Total Bilirubin 0.3 mg/dL (0.2-1.3)
--- NOTE | 2018-07-18 03:55 | CT ---
EXAMINATION TYPE: CT lumbar spine wo con DATE OF EXAM: 07/18/2018 3:32 AM COMPARISON: None HISTORY: back and abdomen pain CT DLP: 1041 mGycm Automated exposure control for dose reduction was used. Unenhanced CT of the lumbar spine was performed. Bone and soft tissue window settings are submitted as well as coronal and sagittal reconstructions. There is mild lumbar levoscoliosis. There is degenerative disc space narrowing throughout the lumbar spine with moderate spur formation. There is no compression fracture. There is a few millimeter anter ior subluxation of L4 in relation L5. There is no spondylolysis. There is multilevel hypertrophic fac et arthropathy. There is no lumbar paraspinal mass. There is mild spinal stenosis at L4-5 due to face t arthropathy and mild subluxation. I see no focal bone destruction. Sacroiliac joints appear intact. IMPRESSION: Spondylotic changes. Mild spinal stenosis at L4-5. Degenerative first-degree L4-5 spondylolisthesis. No fracture seen.
[2018-07-18 03:58] LABS: Creatine Kinase 121 U/L (55-170)
--- NOTE | 2018-07-18 04:12 | CT ---
CT angiogram of the chest abdomen pelvis with runoff. History back pain. Abdominal pain. Comparison none. TECHNIQUE: Multiple axial sections were obtained from the thoracic inlet to the bottom of the feet with intraven ous contrast. There are 3-D post processed images. The contrast was Omnipaque 100 mL. Noncontrast stevan ges were obtained from the thoracic inlet to the bottom of the pelvis. FINDINGS: There is normal branching pattern of the great vessels on the aortic arch. I see no filling defects i n the pulmonary arteries. There is no pericardial effusion. Thoracic aorta is intact without evidence of aneurysm or dissection. There are no hilar masses. There is no mediastinal adenopathy. The lungs are clear of consolidation. There is coarse interstitial infiltrate at the lung bases. There is patency of the celiac artery and superior mesenteric artery. There is bilateral patency of t he renal arteries. There is patency of the common internal and external iliac arteries. There is bila teral patency of the femoral arteries. Liver spleen pancreas gallbladder appear normal. Bile ducts are not dilated. Gallbladder is large and measures 4 cm. There is no adrenal mass. Kidneys show satisfactory contrast opacification. There is no hydronephrosi s. There is no inguinal hernia. There are multiple sigmoid diverticula. There is no sign of diverticu litis. There is no evidence of appendicitis. There is metal artifact from left knee prosthesis. There is wide patency of both femoral arteries. Th ere is wide patency of the popliteal arteries and the tibial arteries. There is bilateral patency of the tibial artery trifurcation. There is arterial flow in the anterior and posterior tibial arteries at both ankles. There is however decreased contrast on the right side compared to the left at the ank le. Small arteries of both feet are not seen with contrast opacification. This is probably due to perico hnical limitations and timing. There is no evidence of abdominal aortic aneurysm or dissection. There are spondylotic changes in the thoracic and lumbar spine. I see no compression fracture of the lumba r spine. There is 25% anterior wedging of T4 vertebra that appears old. This appears unchanged compar ed to chest x-ray 08/04/2014. There is mild lumbar levoscoliosis. There is lower thoracic mild dextros coliosis. IMPRESSION: Negative CT angiogram of the chest abdomen pelvis with runoffs. No evidence of pulmonary embolism. No evidence of hemodynamic stenosis. No evidence of aneurysm or dissection. Large gallbladder that could relate to some degree of gallbladder dysfunction. Mild sigmoid diverticu losis. Interstitial infiltrates in both lower lobes. This could be fibrosis and atelectasis.
[2018-07-18] MEDS ORDERED: ENALAPRILAT 1.25 MG/ML 1 ML VIAL IVP STA (04:24)
[2018-07-18] MEDS ORDERED: MORPHINE SULFATE 4 MG/ML SYRINGE IV PRN (04:48)
[2018-07-18] MEDS ORDERED: NALOXONE 0.4 MG/ML 1 ML VIAL IV PRN (04:48)
[2018-07-18] MEDS: SODIUM CHLORIDE 0.9% 1,000 ML IV SCH ×2 (05:32→19:44)
[2018-07-18] MEDS: HYDROmorphone 1 MG/ML 1 ML SYRINGE IVP PRN ×3 (08:29→18:15)
[2018-07-18] MEDS: ISOSORBIDE MONONITRATE ER 30 MG TAB.ER.24H PO SCH (08:31)
[2018-07-18] MEDS: CHOLECALCIFEROL 1,000 UNIT TAB PO SCH (08:31)
[2018-07-18] MEDS: PHENYTOIN SODIUM EXTENDED 100 MG CAP PO SCH ×2 (08:32→21:49)
[2018-07-18] MEDS: LISINOPRIL 10 MG TAB PO SCH ×2 (08:32→21:49)
[2018-07-18] MEDS ORDERED: ASPIRIN 325 MG TAB PO SCH (09:00)
[2018-07-18] MEDS ORDERED: LIDOCAINE 5% PATCH TOPICAL SCH (09:00)
[2018-07-18] MEDS: ONDANSETRON 4 MG/2 ML VIAL IVP PRN ×2 (11:12→18:21)
[2018-07-18] MEDS: Acetaminophen-Codeine 300-30mg TAB PO PRN ×2 (11:13→15:58)
[2018-07-18] MEDS: LIDOCAINE 5% PATCH TOPICAL SCH (11:14)
[2018-07-18] MEDS ORDERED: BACLOFEN 10 MG TAB PO PRN (18:52)
[2018-07-18] MEDS ORDERED: NAPROXEN 250 MG TAB PO SCH (19:00)
--- NOTE | 2018-07-18 19:34 | HP ---
HISTORY AND PHYSICAL DATE OF SERVICE: July 18, 2018. PRESENTING COMPLAINT: Back pain. HISTORY OF PRESENTING COMPLAINT: This is a 73-year-old patient of Dr. Mk Carrion. Chronic stable medical conditions include coronary artery disease with stent, hypertension, hyperlipidemia, seizures, last one being 2009. The patient has got chronic low back pain and does follow up with Dr. Aguilera. He has also received injections. Yesterday morning, patient's pain became more severe and went down to the right thigh. Did have a bowel movement yesterday. No change in the urination. The patient is finding it difficult to walk and decided to present to the ER admitted there for the same. Dr. Perales from [facility], Dr. Aguilera's partner was consulted. The patient is lying in bed. REVIEW OF SYSTEMS: CONSTITUTIONAL: None. No fever, no chills. HEENT: None. RESPIRATORY: None. GASTROINTESTINAL: None. GENITOURINARY none. MUSCULOSKELETAL as above. DERMATOLOGICAL, HEMATOLOGIC, LYMPHATIC: none. PSYCHIATRY none. NEUROLOGICAL: None. PAST MEDICAL HISTORY: Coronary artery disease with stent, hypertension, hyperlipidemia, seizure disorder, last one in 2009. PAST SURGICAL HISTORY: Cardiac cath with stent, appendectomy, hernia repair, tonsillectomy, rotator cuff repair, two right knee arthroscopies, 2 stents in 2002 and 2013. The pain injections in his back. SOCIAL HISTORY: Patient smoked a pipe until 1999, alcohol rarely. . FAMILY HISTORY: Coronary artery disease. HOME MEDICATIONS: 1. Dilantin 200 mg b.i.d. 2. [place]-3 1000 mg daily. 3. Centrum Silver 1 tablet p.o. daily. 4. Imdur ER 30 mg p.o. daily. 5. Vitamin D3 1000 units p.o. daily. 6. Benazepril 10 mg p.o. b.i.d. 7. Lipitor 40 mg q.h.s. 8. Aspirin 325 p.o. daily. ALLERGIES: QUININE. PHYSICAL EXAMINATION: VITAL SIGNS ON PRESENTATION: Temperature 97.2, pulse 71, respiratory 18, blood pressure 194/92, pulse ox 96% on room air. Repeat blood pressure 148/79. Elevated with pain. GENERAL APPEARANCE: Average build, lying in bed, not in distress. EYES: Pupils equal. Conjunctivae normal. HEENT: External appearance of nose and ears normal. Oral cavity normal. NECK: JVD not raised. Mass not palpable. RESPIRATORY: Effort normal. LUNGS: Slightly decreased breath sounds. CARDIOVASCULAR: 1st and 2nd sounds normal. No edema. ABDOMEN: Soft, nontender. Liver and spleen not palpable. LYMPHATICS: No lymph nodes palpable in the neck and axilla. PSYCHIATRY: Alert and oriented x3. Mood and affect is normal. NEUROLOGICAL: Pupils equal. Cranial nerves grossly intact. Power left lower extremity: Patient is able to lift his left leg to about 60 degrees, right leg able to lift about to 40 degrees. Sensation is preserved in both lower extremities. Reflexes are equal and symmetrical. INVESTIGATION: White count 9.1, hemoglobin 15.7, potassium 4.0, BUN 22, creatinine 0.56. Lumbar spine CT shows some evidence of arthritis, mild spinal stenosis. No fracture reported. CT angio of the chest, abdomen, pelvis without runoffs unremarkable. ASSESSMENT: 1. Acute on chronic low back pain in a patient who has had multiple injections in the past, now presenting with increasing pain and radiculopathy. There is no hyperreflexia. CT scan does not show any spinal cord involvement. 2. Coronary artery disease with stent. 3. Hyperlipidemia. 4. Essential hypertension. 5. Probably false elevation of blood pressure from pain. PLAN: We will start the patient on naproxen 500 mg twice a day. Baclofen 5 mg q.i.d. and Tylenol 3. Also give Lovenox for DVT prophylaxis. We will get Dr. Perales to evaluate the patient. Care was discussed with the patient. Questions were answered. Copy to Dr. Carrion. MMMARISL / JAMMIEN: [id number] /
[2018-07-18] MEDS: Acetaminophen-Codeine 300-30mg TAB PO SCH (19:43)
[2018-07-18] MEDS ORDERED: ATORVASTATIN 40 MG TAB PO SCH (21:00)
[2018-07-18] MEDS: NAPROXEN 250 MG TAB PO SCH (21:49)
[2018-07-18] MEDS: FAMOTIDINE 20 MG TAB PO SCH (21:49)
[2018-07-19] MEDS: Acetaminophen-Codeine 300-30mg TAB PO SCH ×3 (05:50→13:04)
--- NOTE | 2018-07-19 08:36 | P.CNOR ---
History of Present Illness - [facility] Consult date: 07/19/18 Requesting physician: Zeeshan Snow Consult reason: low back pain (Low back pain and right lower extremity radiculopathy) History of present illness: Patient is a very pleasant 73-year-old male who is seen and examined at the bedside after consultation was placed for intractable low back pain and right lower extremity radiculopathy. Patient states he is known have some ongoing low back pain. He follows with Dr. Aguilera in the outpatient setting in pain management. He states on 07/17/2018, he woke up with some back pain and right lower extremity radiculopathy. His symptoms continued to progress throughout the day. As his symptoms continued to worsen, he presented to [facility] for further treatment and evaluation. He states he was given an injection in the emergency department and prescribed a Medrol Dosepak and discharged home. He was unable to fill the prescription as they could not find the pharmacy open Thursday evening. His pain continued to worsen and he presented to [facility] for further evaluation. He was admitted to medicine due to intractable low back pain and lower extremity radiculopathy. Since his admittance he has been receiving Tylenol #3 q6 hours and Naprosyn 500 mg twice a day. Since his admittance he does feel his pain is improving. He feels he would be on discharge home today. He denies any lower extremity weakness bilaterally. He denies any left lower extremity radiculopathy. He states the pain radiates down the right lateral thigh stopping at the knee. He states his symptoms are chronic and are intermittent but was severe yesterday. He states he just recently saw Dr. Aguilera approximately 3-4 days ago and states he is a candidate for further injections of the lumbar spine. Patient does have a past medical history which includes coronary artery disease, hypertension, hyperlipidemia, myocardial infarction, and seizure disorder. Past Medical History Past Medical History: Coronary Artery Disease (CAD), Hyperlipidemia, Hypertension, Myocardial Infarction ([place]), Seizure Disorder Additional Past Medical History / Comment(s): History of subdural hematoma, had seizure fell and hit head. back pain, patients states the doctor said he has a mild heart attack previously, per patients he had a seziure in 2009 and hasn't had any since. Last Myocardial Infarction Date:: 2009 History of Any Multi-Drug Resistant Organisms: None Reported Past Surgical History: Appendectomy, Heart Catheterization With Stent, Hernia Repair, Orthopedic Surgery, Tonsillectomy Additional Past Surgical History / Comment(s): Rotator cuff repair, x2 right knee arthroscopies/steroid injection to right knee, 2 heart stents:05/08/2003 and 02/22/2014, pain injections in his back since May. Past Anesthesia/Blood Transfusion Reactions: No Reported Reaction Date of Last Stent Placement:: 02/22/2014 Past Psychological History: No Psychological Hx Reported Smoking Status: Former smoker Past Alcohol Use History: Rare Additional Past Alcohol Use History / Comment(s): Quit smoking in 1999 -SMOKED A PIPE Past Drug Use History: None Reported - Past Family History Mother Family Medical History: No Reported History Father Family Medical History: Coronary Artery Disease (CAD) Medications and Allergies Home Medications Medication Instructions Recorded Confirmed Type Aspirin EC [Ecotrin] 325 mg PO DAILY 01/24/18 07/18/18 History Atorvastatin [Lipitor] 40 mg PO HS 01/24/18 07/18/18 History Benazepril HCl 10 mg PO BID 01/24/18 07/18/18 History Isosorbide Mononitrate ER [Imdur] 30 mg PO DAILY 01/24/18 07/18/18 History Phenytoin Sodium Extended 200 mg PO BID 01/24/18 07/18/18 History [Dilantin] Cholecalciferol [Vitamin D3] 1,000 unit PO DAILY 07/18/18 07/18/18 History Multivit-Min/FA/Lycopen/Lutein 1 tab PO DAILY 07/18/18 07/18/18 History [Centrum Silver Tablet] [place]-3 Fatty Acids [[place]-3] 1,000 mg PO DAILY 07/18/18 07/18/18 History Allergies Allergy/AdvReac Type Severity Reaction Status Date / Time quinine AdvReac CHILLS Verified 07/18/18 08:05 Physical Examination Physical exam: Patient is awake, alert, and oriented 3 Vital signs stable Good chest excursion with deep inspiration and expiration Examination of lumbar spine reveals skin is intact with no abrasions, lacerations, or bruises; no erythema, purulence or signs of infection No significant pain with palpation over the lumbosacral spine Dorsiflexion, plantarflexion, and extensor hallucis longus positive sustained bilaterally Lower extremity strength 5/5 bilaterally No lower extremity hyperreflexia bilaterally Straight leg test negative bilateral lower extremities No signs or symptoms of DVT; no calf pain No pain with internal and external rotation of the hips bilaterally Neurovascularly intact Results Pertinent studies: CT of the lumbar spine: Significant degenerative scoliosis centered at approximately L2-3 and L3-4; degenerative disc disease throughout the lumbar spine with multilevel asymmetric degenerative disc disease and severe degenerative disc disease at L2-3; L4-5 spondylolisthesis and mild spinal canal stenosis; L3-4 lateral listhesis; facet spondylosis throughout the lumbar spine ; no evidence of vertebral body compression fracture - Labs Labs: H & H 07/18/18 Range/Units 02:15 Hgb 15.7 (13.0-17.5) gm/dL Hct 48.1 (39.0-53.0) % Result Diagrams: 07/18/18 02:15 07/18/18 02:15 Assessment and Plan Assessment: Assessment: Intractable low back pain Right lower extremity radiculopathy Degenerative scoliosis Lumbar spondylolisthesis and lateral listhesis Lumbar spinal canal stenosis Lumbar facet spondylosis Lumbar degenerative disc disease History of coronary artery disease, hypertension, hyperlipidemia, myocardial infarction, and seizure disorder. (1) Lumbar back pain with radiculopathy affecting right lower extremity Current Visit: Yes Status: Acute Code(s): M54.16 - RADICULOPATHY, LUMBAR REGION SNOMED Code(s): 839374301 (2) Lumbar degenerative disc disease Current Visit: Yes Status: Acute Code(s): M51.36 - OTHER INTERVERTEBRAL DISC DEGENERATION, LUMBAR REGION SNOMED Code(s): 29649299 (3) Lumbar facet arthropathy Current Visit: Yes Status: Acute Code(s): M47.816 - SPONDYLOSIS W/O MYELOPATHY OR RADICULOPATHY, LUMBAR REGION SNOMED Code(s): 883398202 (4) Spondylolisthesis, lumbar region Current Visit: Yes Status: Acute Code(s): M43.16 - SPONDYLOLISTHESIS, LUMBAR REGION SNOMED Code(s): 066482075161903 (5) Degenerative scoliosis in adult patient Current Visit: Yes Status: Acute Code(s): M41.50 - OTHER SECONDARY SCOLIOSIS , SITE UNSPECIFIED SNOMED Code(s): 775779987 (6) Lumbar spinal stenosis Current Visit: Yes Status: Acute Code(s): M48.061 - SPINAL STENOSIS, LUMBAR REGION WITHOUT NEUROGENIC APOLINAR SNOMED Code(s): 07647923 (7) History of hypertension Current Visit: Yes Status: Acute Code(s): Z86.79 - PERSONAL HISTORY OF OTHER DISEASES OF THE CIRCULATORY SYSTEM SNOMED Code(s): 139089530 (8) History of hyperlipidemia Current Visit: Yes Status: Acute Code(s): Z86.39 - PERSONAL HISTORY OF ENDO , NUTRITIONAL AND METABOLIC DISEASE SNOMED Code(s): 363943247 (9) History of myocardial infarction Current Visit: Yes Status: Acute Code(s): I25.2 - OLD MYOCARDIAL INFARCTION SNOMED Code(s): 073533293 (10) History of seizure disorder Current Visit: Yes Status: Acute Code(s): Z86.69 - PERSONAL HISTORY OF DIS OF THE NERVOUS SYS AND SENSE ORGANS SNOMED Code(s): 723564393 (11) Intractable back pain Current Visit: Yes Status: Acute Code(s): M54.9 - DORSALGIA, UNSPECIFIED SNOMED Code(s): 374372982 (12) History of coronary artery disease Current Visit: No Status: Acute Code(s): Z86.79 - PERSONAL HISTORY OF OTHER DISEASES OF THE CIRCULATORY SYSTEM SNOMED Code(s): 503763811 Plan: Plan: 1. Patient does have significant degenerative changes on his CT of his lumbar spine. Patient has chronic low back pain and lower extremity radiculopathy. It is intermittent. He has been following with Dr. Aguilera in the outpatient setting for further treatment and evaluation. He was recently seen and evaluated approximately 3-4 days ago. He states he is a candidate for further injections to be performed by Dr. Aguilera. Since his admittance to the hospital with intractable low back pain and right lower extremity radiculopathy , he states his pain has been improving and is currently at 4/10. He feels his symptoms are tolerable in which he would be able to be discharged home today. We discussed with are not currently planning for any surgical intervention in regards to his lumbosacral spine. Surgery would be significantly extensive and may not provide significant improvement of the symptoms. We discussed he should exhaust conservative treatment options. We will plan to help set up a follow-up appointment with Dr. Aguilera in the outpatient setting and he may proceed forward with injections as needed. Will not plan to have him follow-up in the outpatient setting from the orthopedic spine standpoint and we'll have him follow up on an as-needed basis. If his symptoms do not improve with conservative treatment with pain management, he may call the office at follow- up appointment. From an orthopedic spine standpoint, patient is cleared for discharge. 2. Patient will continue to be seeing exam by Dr. Snow in medicine 3. Patient will be discussed in detail with Dr. Fabio Perales Time with Patient: Less than 30
[2018-07-19] MEDS ORDERED: ASPIRIN 81 MG PO SCH (09:00)
[2018-07-19] MEDS: CHOLECALCIFEROL 1,000 UNIT TAB PO SCH (09:07)
[2018-07-19] MEDS: LIDOCAINE 5% PATCH TOPICAL SCH (09:07)
[2018-07-19] MEDS: NAPROXEN 250 MG TAB PO SCH (09:07)
[2018-07-19] MEDS: LISINOPRIL 10 MG TAB PO SCH (09:07)
[2018-07-19] MEDS: SODIUM CHLORIDE 0.9% 1,000 ML IV SCH (09:08)
[2018-07-19] MEDS: FAMOTIDINE 20 MG TAB PO SCH (09:08)
[2018-07-19] MEDS: ISOSORBIDE MONONITRATE ER 30 MG TAB.ER.24H PO SCH (09:08)
[2018-07-19] MEDS: PHENYTOIN SODIUM EXTENDED 100 MG CAP PO SCH (09:08)
[2018-07-19 15:22] VITALS: BP 122/65; PULSE 66; RESP 18; TEMP 98.2
--- NOTE | 2018-07-20 08:28 | DS ---
DISCHARGE SUMMARY DATE OF ADMISSION: 07/18/2018 DATE OF DISCHARGE: 07/19/2018 FINAL DIAGNOSES: 1. Acute on chronic low back pain from osteoarthritis flare up with acute radiculopathy to the right thigh. 2. Coronary artery disease with stent. 3. Hyperlipidemia. 4. Essential hypertension. HOSPITAL COURSE: This patient has chronic low back pain who follows with Dr. Aguilera from [facility] who also received steroid injections in the past presented with acute flare up with some radiculopathy to the right leg who was having difficulty with walking. The patient was given a burst of steroid, NSAIDs, antispasmodic and doing better by the time of discharge. CT scan of the lumbar spine was done, showed some chronic changes. The patient was seen by Dr. Perales from [facility] who will follow the patient. Patient doing much better at time of discharge. Able to walk. Pain much better controlled. PHYSICAL EXAMINATION: On examination, temperature 98.2, pulse 66, respirations 16, blood pressure 122/65, pulse ox 94% on room air. Lungs are clear. Patient able to walk to the bathroom. DISCHARGE MEDICATION: 1. Lipitor 40 mg q.h.s. 2. Benazepril 10 mg b.i.d. 3. Imdur ER 30 mg a day. 4. Dilantin 200 mg b.i.d. 5. Vitamin D3, 1000 units p.o. daily. 6. Centrum Silver 1 tablet p.o. daily. 7. [place]-3, 1000 mg p.o. daily. 8. Tylenol No, 3 one tablet p.o. q.6. 9. Aspirin 81 mg p.o. daily. 10.Baclofen 5 mg p.o. t.i.d. 11.Pepcid 20 mg b.i.d. 12.Naproxen 500 mg q.12, thirty tablets. 13.Prednisone taper. Follow up with Dr. Carrion in 1 week. Follow up with Dr. Sunday Aguilera 07/21/2018 Note, the patient already has Tylenol No. 3 at home. MMODL / IJN: [id number] /
== END 2018-07-19 15:34 | disposition home or self-care (01) ==
LOC: EC 01:35 → 3NMEDONC 04:54 → 4MS4W 07-19 01:42
PROVIDERS: ADMIT Hospitalist; ATTEND Hospitalist
DX: M47.20 Other spondylosis with radiculopathy, site unspecified (principal); I25.10 Atherosclerotic heart disease of native coronary artery without angina pectoris; Z95.5 Presence of coronary angioplasty implant and graft; E78.5 Hyperlipidemia, unspecified; I10 Essential (primary) hypertension; G89.29 Other chronic pain; I25.2 Old myocardial infarction; G40.909 Epilepsy, unspecified, not intractable, without status epilepticus; M48.061 Spinal stenosis, lumbar region without neurogenic claudication; M43.16 Spondylolisthesis, lumbar region; M47.9 Spondylosis, unspecified; M41.80 Other forms of scoliosis, site unspecified; Z79.82 Long term (current) use of aspirin; Z79.899 Other long term (current) drug therapy; Z88.8 Allergy status to other drugs, medicaments and biological substances; Z91.81 History of falling; Z87.891 Personal history of nicotine dependence
CPT/HCPCS: 96376 ×2; 96361 ×2; 96375 ×2; 96374; 99284; 36415; 93005; 86900; 86901; 80053; 82550; 83605; 85025; 86850; 72131; 75635; 71275; G0378 ×2; J2270; J2405; J1170; Q9967

== ENCOUNTER 2018-12-31 07:41 | Emergency (ER) | payer MEDICARE ==
--- NOTE | 2018-12-31 07:46 | ED ---
Chest Pain HPI - General Stated Complaint: chest pain Time Seen by Provider: 12/31/18 07:45 Source: RN notes reviewed, old records reviewed - History of Present Illness Initial Comments: This is a 73-year-old male the ER for evaluation. Patient coming in for evasive chest pain chest pain left-sided lower extremity and left upper extremity. No shortness of breath no diaphoresis. A she has significant history of heart disease high blood pressure high cholesterol CAD. No recent travel history or sick contacts no fever cough or congestion MD Complaint: chest pain -: hour(s) Onset: during rest, awoke with symptoms Pain Location: left chest Pain Radiation: LUE Severity: mild Severity scale (1-10): 3 Quality: tightness, aching Consistency: now resolved Improves With: nitroglycerin Worsens With: nothing Treatments Prior to Arrival: none - Related Data Home Medications Medication Instructions Recorded Confirmed Atorvastatin [Lipitor] 40 mg PO HS 01/24/18 12/31/18 Benazepril HCl 10 mg PO BID 01/24/18 12/31/18 Isosorbide Mononitrate ER [Imdur] 30 mg PO DAILY 01/24/18 12/31/18 Cholecalciferol [Vitamin D3 (25 1,000 unit PO DAILY 07/18/18 12/31/18 Mcg = 1000 Iu)] Multivit-Min/FA/Lycopen/Lutein 1 tab PO DAILY 07/18/18 12/31/18 [Centrum Silver Tablet] [place]-3 Fatty Acids [[place]-3] 1,000 mg PO DAILY 07/18/18 12/31/18 Nitroglycerin Sl Tabs [Nitrostat] 0.4 mg SUBLINGUAL Q5M PRN 12/31/18 12/31/18 Phenytoin Sodium Extended 200 mg PO BID 12/31/18 12/31/18 [Dilantin] Slow-Mag 143mg 143 mg PO DAILY 12/31/18 12/31/18 traMADol HCL [Ultram] 50 mg PO DAILY PRN 12/31/18 12/31/18 Previous Rx's Medication Instructions Recorded Aspirin 81 mg PO DAILY chew 07/19/18 Allergies Allergy/AdvReac Type Severity Reaction Status Date / Time quinine AdvReac CHILLS Verified 12/31/18 08:03 Review of Systems ROS Statement: Those systems with pertinent positive or pertinent negative responses have been documented in the HPI. ROS Other: All systems not noted in ROS Statement are negative. EKG Findings - EKG Comments: EKG Findings:: EKG shows sinus bradycardia rate of 49, OH 192, QRS 80, QTC 442 Past Medical History Past Medical History: Coronary Artery Disease (CAD), Hyperlipidemia, Hypertension, Myocardial Infarction ([place]), Seizure Disorder Additional Past Medical History / Comment(s): History of subdural hematoma, had seizure fell and hit head. back pain, patients states the doctor said he has a mild heart attack previously, per patients he had a seziure in 2009 and hasn't had any since. Last Myocardial Infarction Date:: 2009 History of Any Multi-Drug Resistant Organisms: None Reported Past Surgical History: Appendectomy, Heart Catheterization With Stent, Hernia Repair, Orthopedic Surgery, Tonsillectomy Additional Past Surgical History / Comment(s): Rotator cuff repair, x2 right knee arthroscopies/steroid injection to right knee, 2 heart stents:05/08/2003 and 02/22/2014, pain injections in his back since May. Past Anesthesia/Blood Transfusion Reactions: No Reported Reaction Date of Last Stent Placement:: 02/22/2014 Past Psychological History: No Psychological Hx Reported Smoking Status: Former smoker Past Alcohol Use History: Rare Additional Past Alcohol Use History / Comment(s): Quit smoking in 1999 -SMOKED A PIPE Past Drug Use History: None Reported - Past Family History Mother Family Medical History: No Reported History Father Family Medical History: Coronary Artery Disease (CAD) General Exam General appearance: alert, in no apparent distress Head exam: Present: atraumatic, normocephalic, normal inspection Eye exam: Present: normal appearance, PERRL, EOMI. Absent: scleral icterus, conjunctival injection, periorbital swelling ENT exam: Present: normal exam, mucous membranes moist Neck exam: Present: normal inspection. Absent: tenderness, meningismus, lymphadenopathy Respiratory exam: Present: normal lung sounds bilaterally. Absent: respiratory distress, wheezes, rales, rhonchi, stridor Cardiovascular Exam: Present: normal rhythm, bradycardia, normal heart sounds. Absent: systolic murmur, diastolic murmur, rubs, gallop, clicks GI/Abdominal exam: Present: soft, normal bowel sounds. Absent: distended, tenderness, guarding, rebound, rigid Extremities exam: Present: normal inspection, full ROM, normal capillary refill. Absent: tenderness, pedal edema, joint swelling, calf tenderness Back exam: Present: normal inspection Neurological exam: Present: alert, oriented X3, CN II-XII intact Psychiatric exam: Present: normal affect, normal mood Skin exam: Present: warm, dry, intact, normal color. Absent: rash Course Vital Signs 12/31/18 12/31/18 12/31/18 07:43 08:30 09:30 Temperature 98 F Pulse Rate 46 L 50 L 52 L Respiratory 18 16 16 Rate Blood Pressure 137/73 125/78 123/75 O2 Sat by Pulse 97 98 98 Oximetry 12/31/18 12/31/18 11:00 12:33 Temperature 97.8 F Pulse Rate 57 L 78 Respiratory 15 16 Rate Blood Pressure 101/70 108/74 O2 Sat by Pulse 95 97 Oximetry - Reevaluation(s) Reevaluation #1: 12/31/18 10:36 Medical record reviewed Reevaluation #2: 12/31/18 10:36 Patient remains without chest pain during hospitalization Reevaluation #3: 12/31/18 10:36 Patient refusing inpatient admission for observation under cardiology. Patient suggested that he states for a second troponin, he is agreeable for that Chest Pain MDM - MDM 73 male the ER for evasive chest pain. Patient is here for evaluation of chest pain. History of heart disease with stent, patient has troponin negative 2 no rmal EKG. A she does not want to stay for inpatient observation, will return to ER if symptoms return. Chest x-rays negative for acute disease Disposition Clinical Impression: Chest pain, Unstable angina pectoris Disposition: Left Against Medical Advice Condition: Undetermined Instructions (If sedation given, give patient instructions): Chest Pain (ED) Is patient prescribed a controlled substance at d/c from ED?: No Referrals: Mk Carrion MD [Primary Care Provider] - 1-2 days
[2018-12-31 08:23] LABS: Basophils # (A) 0.1 k/uL (0-0.2); Basophils % (A) 1 %; Eosinophils # (A) 0.3 k/uL (0-0.7); Eosinophils % (A) 3 %; HCT 44.4 % (39.0-53.0); Lymphocytes # (A) 2.2 k/uL (1.0-4.8); Lymphocytes % (A) 22 %; MCH 31.4 pg (25.0-35.0); MCHC 33.9 g/dL (31.0-37.0); MCV 92.9 fL (80.0-100.0); Mean Platelet Volume 8.1; Monocytes # (A) 0.7 k/uL (0-1.0); Monocytes % (A) 7 %; Neutrophils # (A) 6.6 k/uL (1.3-7.7); Neutrophils % (A) 65 %; Platelet Count 213 k/uL (150-450); RBC 4.78 m/uL (4.30-5.90); RDW 12.9 % (11.5-15.5); WBC 10.1 k/uL (3.8-10.6)
[2018-12-31 08:30] LABS: ALT 29 U/L (21-72); AST 27 U/L (17-59); Alkaline Phosphatase 86 U/L (38-126); Anion Gap 7 mmol/L; Blood Urea Nitrogen 17 mg/dL (9-20); Calcium 8.9 mg/dL (8.4-10.2); Carbon Dioxide 26 mmol/L (22-30); Chloride 108 mmol/L (98-107); Glucose 92 mg/dL (74-99); Lipase 91 U/L (23-300); Magnesium 1.9 mg/dL (1.6-2.3); Partial Thromboplastin Time 24.2 sec (22.0-30.0); Potassium 4.3 mmol/L (3.5-5.1); Prothrombin Time 10.9 sec (9.0-12.0); Sodium 141 mmol/L (137-145); Total Bilirubin 0.4 mg/dL (0.2-1.3); Total Protein 6.5 g/dL (6.3-8.2)
--- NOTE | 2018-12-31 08:37 | XR ---
EXAMINATION TYPE: XR chest 2V DATE OF EXAM: 12/31/2018 COMPARISON: Chest x-ray January 24, 2018. CT aorta July 18, 2018. HISTORY: Chest pain. TECHNIQUE: Frontal and lateral views of the chest are obtained. FINDINGS: There is chronic parenchymal change with new bibasilar opacities. No pleural effusion or p neumothorax is evident bilaterally. The cardiac silhouette size remains upper limits of normal. Under lying S-shaped scoliosis is redemonstrated. IMPRESSION: Chronic changes with new patchy bibasilar infiltrate and/or atelectasis.
[2018-12-31 12:34] VITALS: BP 108/74; PULSE 78; RESP 16; TEMP 97.8
== END 2018-12-31 12:33 | disposition left against medical advice (07) ==
LOC: EC 07:41
DX: I25.110 Atherosclerotic heart disease of native coronary artery with unstable angina pectoris (principal); E78.5 Hyperlipidemia, unspecified; I11.9 Hypertensive heart disease without heart failure; I25.2 Old myocardial infarction; G40.909 Epilepsy, unspecified, not intractable, without status epilepticus; Z95.5 Presence of coronary angioplasty implant and graft; Z87.891 Personal history of nicotine dependence; Z82.49 Family history of ischemic heart disease and other diseases of the circulatory system; Z79.899 Other long term (current) drug therapy; Z88.8 Allergy status to other drugs, medicaments and biological substances; Z53.29 Procedure and treatment not carried out because of patient's decision for other reasons
CPT/HCPCS: 36415; 71046; 80053; 83690; 83735; 83880; 84484; 85025; 85610; 85730; 93005; 99285

== ENCOUNTER → 2019-07-05 | Outpatient (CLI) | payer MEDICARE ==
--- NOTE | 2019-07-05 15:15 | XR ---
Bilateral knees HISTORY: Knee pain 3 views of each knee are submitted on a total 6 images and correlated to prior left knee dated 017 Patient is status post left knee arthroplasty. There is anatomic alignment present at the left knee a rthroplasty. Suprapatellar increased density shows possible joint effusion. Patchy sclerotic vascular calcifications are present. Right knee shows slight varus deformity. Vacuum phenomenon is present in the medial compartment. There is remodeling present at the medial femoral condyle. Tricompartmental joint space loss is present. Suprapatellar joint effusion is suspected on the right as well. Marginal spurring significant the patellofemoral joint. IMPRESSION: Osteoarthritis right knee, postop changes left knee. Joint effusions suspected.
== END | disposition home or self-care (01) ==
LOC: RADXRMAIN 10:15
PROVIDERS: ATTEND Family Medicine
DX: M17.11 Unilateral primary osteoarthritis, right knee (principal); Z96.652 Presence of left artificial knee joint

== ENCOUNTER 2021-12-03 10:55 | Observation (INO) | payer MEDICARE ==
[2021-12-03] MEDS ORDERED: NITROGLYCERIN OINT 1 INCH/GM PACKET TOPICAL STA (11:14)
--- NOTE | 2021-12-03 11:20 | ED ---
General Adult HPI - General Chief complaint: Chest Pain Stated complaint: chest pain Time Seen by Provider: 12/03/21 11:00 Source: patient, RN notes reviewed, old records reviewed Mode of arrival: ambulatory Limitations: no limitations - History of Present Illness Initial comments: This is a 76-year-old male with a past medical history significant for coronary artery disease and has stents, patient has high blood pressure patient is a cholesterol. Patient states his Keppra for cardiac catheterization tomorrow. Patient comes in today because it 3:30 this morning started experiencing chest pain and every time he took a nitroglycerin the pain wouldn't go away but then it would come back. Patient states pain is pressure sensation he states is sim ilar to the pain he said was his previous heart attack. Patient denies any radiation of pain. Patient denies any difficulty breathing shortness of breath. Patient denies any recent fever chills or cough. Patient states currently he has no pain. Patient states took an aspirin at home and 4 nitroglycerin total. - Related Data Home Medications Medication Instructions Recorded Confirmed Atorvastatin [Lipitor] 40 mg PO HS 01/24/18 12/03/21 Benazepril HCl 10 mg PO BID 01/24/18 12/03/21 Isosorbide Mononitrate ER [Imdur] 30 mg PO DAILY 01/24/18 12/03/21 Multivit-Min/FA/Lycopen/Lutein 1 tab PO Q48H 07/18/18 12/03/21 [Centrum Silver Tablet] Slow-Mag 143mg 2 tab PO HS 12/31/18 12/03/21 Aspirin 325 mg PO HS 11/22/21 12/03/21 Tamsulosin HCl [Flomax] 0.8 mg PO HS 11/22/21 12/03/21 levETIRAcetam [Keppra] 500 mg PO BID 11/22/21 12/03/21 Cholecalciferol [Vitamin D3 (25 25 mcg PO DAILY 12/03/21 12/03/21 Mcg = 1000 Iu)] Famotidine [Pepcid] 20 mg PO BID PRN 12/03/21 12/03/21 Naproxen Sodium [Aleve] 220 mg PO DAILY PRN 12/03/21 12/03/21 [place]-3 Fatty Acids [[place]-3] 1,000 mg PO DAILY 12/03/21 12/03/21 Temazepam [Restoril] 15 mg PO HS PRN 12/03/21 12/03/21 Allergies Allergy/AdvReac Type Severity Reaction Status Date / Time quinine AdvReac CHILLS Verified 12/03/21 11:24 Review of Systems ROS Statement: Those systems with pertinent positive or pertinent negative responses have been documented in the HPI. ROS Other: All systems not noted in ROS Statement are negative. Past Medical History Past Medical History: Coronary Artery Disease (CAD), Cancer, Hyperlipidemia, Hypertension, Myocardial Infarction ([place]), Prostate Disorder, Seizure Disorder Additional Past Medical History / Comment(s): History of subdural hematoma, had seizure fell and hit head. Back pain. Hx seziure in 2010 and none since. Enlarged prostate. Hx skin cancer on back. Last Myocardial Infarction Date:: 2009 History of Any Multi-Drug Resistant Organisms: None Reported Past Surgical History: Appendectomy, Heart Catheterization With Stent, Hernia Repair, Joint Replacement, Orthopedic Surgery, Tonsillectomy Additional Past Surgical History / Comment(s): Rotator cuff repair X2, right k nee arthroscopies/steroid injection to right knee, 2 heart stents 05/08/2003 and 02/22/2014, pain injections in back, left knee replacement, right shoulder corstisone injection, cancerous mole removed from back. Past Anesthesia/Blood Transfusion Reactions: No Reported Reaction Date of Last Stent Placement:: 02/22/2014 Past Psychological History: No Psychological Hx Reported Smoking Status: Former smoker Past Alcohol Use History: None Reported Past Drug Use History: None Reported - Past Family History Mother Family Medical History: No Reported History Father Family Medical History: Coronary Artery Disease (CAD) General Exam - General Exam Comments Initial Comments: GENERAL: Patient is well-developed and well-nourished. Patient is nontoxic and well- hydrated and is in no acute distress. ENT: Neck is soft and supple. No significant lymphadenopathy is noted. Oropharynx is clear. Moist mucous membranes. Neck has full range of motion without eliciting any pain. There is no thyroid enlargement and no masses were felt. EYES: The sclera were anicteric and conjunctiva were pink and moist. Extraocular movements were intact and pupils were equal round and reactive to light. Eyelids were unremarkable. PULMONARY: Unlabored respirations. Good breath sounds bilaterally. No audible rales rhonchi or wheezing was noted. CARDIOVASCULAR: There is a regular rate and rhythm without any murmurs gallops or rubs. Femoral pulses are equal bilaterally ABDOMEN: Soft and nontender with normal bowel sounds. No palpable organomegaly was noted. There is no palpable pulsatile mass. SKIN: Skin is clear with no lesions or rashes and otherwise unremarkable. NEUROLOGIC: Patient is alert and oriented x3. Cranial nerves II through XII are grossly intact. Motor and sensory are also intact. Normal speech, volume and content. Symmetrical smile. Cerebellar exam grossly intact. MUSCULOSKELETAL: Normal extremities with adequate strength and full range of motion. No lower extremity swelling or edema. No calf tenderness. LYMPHATICS: No significant lymphadenopathy is noted PSYCHIATRIC: Normal psychiatric evaluation. Normal interpersonal interactions appears functionally intact in deals appropriately with others. No signs of depression. No signs of anxiety. No delusions. No hallucinations. Limitations: no limitations Course Vital Signs 12/03/21 10:59 Temperature 98.5 F Pulse Rate 58 L Respiratory 20 Rate Blood Pressure 145/83 O2 Sat by Pulse 96 Oximetry Medical Decision Making - Medical Decision Making EKG shows sinus bradycardia with occasional PVC at 52 bpm patient states this is his regular heart rate MD interval is 186 QRS is 99 QT intervals 462 QTC is 442. Patient's EKG shows no ST segment elevation or depression. Chest x-ray shows no acute abnormality. I spoke with Dr. Snow agreed to admit the patient to the patient consult to cardiology Patient continued to have chest pain in the emergency department so called as unstable angina and started patient heparin. I continued heparin and aspirin and Nitropaste on the floor. - Lab Data Result diagrams: 12/03/21 11:16 12/03/21 11:16 Lab Results 12/03/21 12/03/21 12/03/21 Range/Units 11:16 11:16 11:16 WBC 7.5 (3.8-10.6) k/uL RBC 4.49 (4.30-5.90) m/uL Hgb 14.1 (13.0-17.5) gm/dL Hct 42.7 (39.0-53.0) % MCV 95.1 (80.0-100.0) fL MCH 31.5 (25.0-35.0) pg MCHC 33.2 (31.0-37.0) g/dL RDW 12.7 (11.5-15.5) % Plt Count 185 (150-450) k/uL MPV 8.4 Neutrophils % 56 % Lymphocytes % 29 % Monocytes % 7 % Eosinophils % 4 % Basophils % 1 % Neutrophils # 4.2 (1.3-7.7) k/uL Lymphocytes # 2.2 (1.0-4.8) k/uL Monocytes # 0.5 (0-1.0) k/uL Eosinophils # 0.3 (0-0.7) k/uL Basophils # 0.0 (0-0.2) k/uL PT 10.7 (9.0-12.0) sec INR 1.0 (<1.2) APTT 25.1 (22.0-30.0) sec Sodium 137 (137-145) mmol/L Potassium 4.2 (3.5-5.1) mmol/L Chloride 106 (98-107) mmol/L Carbon Dioxide 25 (22-30) mmol/L Anion Gap 6 mmol/L BUN 21 H (9-20) mg/dL Creatinine 0.86 (0.66-1.25) mg/dL Est GFR (CKD-EPI)AfAm >90 (>60 ml/min/1.73 sqM) Est GFR (CKD-EPI)NonAf 83 (>60 ml/min/1.73 sqM) Glucose 101 H (74-99) mg/dL Calcium 8.7 (8.4-10.2) mg/dL Magnesium 1.9 (1.6-2.3) mg/dL Total Bilirubin 0.6 (0.2-1.3) mg/dL AST 30 (17-59) U/L ALT 27 (4-49) U/L Alkaline Phosphatase 76 (38-126) U/L Troponin I (0.000-0.034) ng/mL NT-Pro-B Natriuret Pep pg/mL Total Protein 6.6 (6.3-8.2) g/dL Albumin 3.8 (3.5-5.0) g/dL 12/03/21 12/03/21 Range/Units 11:16 11:16 WBC (3.8-10.6) k/uL RBC (4.30-5.90) m/uL Hgb (13.0-17.5) gm/dL Hct (39.0-53.0) % MCV (80.0-100.0) fL MCH (25.0-35.0) pg MCHC (31.0-37.0) g/dL RDW (11.5-15.5) % Plt Count (150-450) k/uL MPV Neutrophils % % Lymphocytes % % Monocytes % % Eosinophils % % Basophils % % Neutrophils # (1.3-7.7) k/uL Lymphocytes # (1.0-4.8) k/uL Monocytes # (0-1.0) k/uL Eosinophils # (0-0.7) k/uL Basophils # (0-0.2) k/uL PT (9.0-12.0) sec INR (<1.2) APTT (22.0-30.0) sec Sodium (137-145) mmol/L Potassium (3.5-5.1) mmol/L Chloride (98-107) mmol/L Carbon Dioxide (22-30) mmol/L Anion Gap mmol/L BUN (9-20) mg/dL Creatinine (0.66-1.25) mg/dL Est GFR (CKD-EPI)AfAm (>60 ml/min/1.73 sqM) Est GFR (CKD-EPI)NonAf (>60 ml/min/1.73 sqM) Glucose (74-99) mg/dL Calcium (8.4-10.2) mg/dL Magnesium (1.6-2.3) mg/dL Total Bilirubin (0.2-1.3) mg/dL AST (17-59) U/L ALT (4-49) U/L Alkaline Phosphatase (38-126) U/L Troponin I <0.012 (0.000-0.034) ng/mL NT-Pro-B Natriuret Pep 185 pg/mL Total Protein (6.3-8.2) g/dL Albumin (3.5-5.0) g/dL Critical Care Time Critical Care Time: Yes Total Critical Care Time: 35 Disposition Clinical Impression: Unstable angina pectoris Disposition: ADMITTED IP TO THIS HOSP Referrals: Mk Carrion MD [Primary Care Provider] - 1-2 days Time of Disposition: 12:30
[2021-12-03 11:30] LABS: Basophils % (A) 1 %; Eosinophils # (A) 0.3 k/uL (0-0.7); Eosinophils % (A) 4 %; HCT 42.7 % (39.0-53.0); HGB 14.1 gm/dL (13.0-17.5); Lymphocytes # (A) 2.2 k/uL (1.0-4.8); Lymphocytes % (A) 29 %; MCH 31.5 pg (25.0-35.0); MCHC 33.2 g/dL (31.0-37.0); MCV 95.1 fL (80.0-100.0); Mean Platelet Volume 8.4; Monocytes # (A) 0.5 k/uL (0-1.0); Monocytes % (A) 7 %; Neutrophils # (A) 4.2 k/uL (1.3-7.7); Neutrophils % (A) 56 %; Platelet Count 185 k/uL (150-450); RBC 4.49 m/uL (4.30-5.90); RDW 12.7 % (11.5-15.5); WBC 7.5 k/uL (3.8-10.6)
--- NOTE | 2021-12-03 11:38 | XR ---
EXAMINATION TYPE: XR chest 2V DATE OF EXAM: 12/03/2021 COMPARISON: Chest x-ray 12/31/2018 HISTORY: Chest pain TECHNIQUE: Frontal and lateral views of the chest are obtained. FINDINGS: There is no focal air space opacity, pleural effusion, or pneumothorax seen. Minimal patc hy basilar density may reflect scarring, atelectasis. The cardiac silhouette size is within normal li mits. Lung volumes are low. Aorta is dense. There are overlying leads. The osseous structures are st able, there is a spinal curvature, thoracic spondylosis. IMPRESSION: Likely there is basilar atelectasis or scarring, no interval change compared to prior ex am
[2021-12-03 11:59] LABS: ALT 27 U/L (4-49); AST 30 U/L (17-59); African American GFR (CKD) >90 (>60 ml/min/1.73 sqM); Albumin 3.8 g/dL (3.5-5.0); Alkaline Phosphatase 76 U/L (38-126); Anion Gap 6 mmol/L; Blood Urea Nitrogen 21 mg/dL (9-20); Calcium 8.7 mg/dL (8.4-10.2); Carbon Dioxide 25 mmol/L (22-30); Chloride 106 mmol/L (98-107); Glucose 101 mg/dL (74-99); Magnesium 1.9 mg/dL (1.6-2.3); Non-African American GFR(CKD) 83 (>60 ml/min/1.73 sqM); Potassium 4.2 mmol/L (3.5-5.1); Sodium 137 mmol/L (137-145); Total Bilirubin 0.6 mg/dL (0.2-1.3); Total Protein 6.6 g/dL (6.3-8.2)
[2021-12-03 12:09] LABS: Partial Thromboplastin Time 25.1 sec (22.0-30.0); Prothrombin Time 10.7 sec (9.0-12.0)
[2021-12-03] MEDS ORDERED: NITROGLYCERIN SL TABS 0.4 MG TAB SUBLINGUAL PRN (12:38)
[2021-12-03] MEDS ORDERED: HEPARIN SODIUM 1,000 UN/ML (10ML VL) IV ONE (12:48)
[2021-12-03] MEDS ORDERED: HEPARIN SOD,PORK IN 0.45% NACL 25,000 UNIT in 0.45% NACL 1 250ML.BAG IV SCH (13:00)
[2021-12-03] MEDS ORDERED: TEMAZEPAM 15 MG CAP PO PRN (13:06)
[2021-12-03] MEDS ORDERED: FAMOTIDINE 20 MG TAB PO PRN (13:06)
[2021-12-03] MEDS ORDERED: traMADol 50 MG TAB PO PRN (13:07)
[2021-12-03] MEDS ORDERED: LORazepam 0.5 MG TAB PO PRN (13:07)
[2021-12-03] MEDS ORDERED: PROCHLORPERAZINE 5 MG TAB PO PRN (13:07)
[2021-12-03] MEDS ORDERED: LACTULOSE 20 GM/30 ML CUP PO PRN (13:07)
[2021-12-03] MEDS ORDERED: CALCIUM CARBONATE 500 MG CHEWABLE PO PRN (13:07)
[2021-12-03] MEDS ORDERED: NALOXONE 0.4 MG/ML 1 ML VIAL IV PRN (13:07)
[2021-12-03] MEDS ORDERED: ACETAMINOPHEN TAB 325 MG TAB PO PRN (13:07)
--- NOTE | 2021-12-03 13:14 | P.HPIM ---
History of Present Illness H&P Date: 12/03/21 Chief Complaint: Chest pain This is a pleasant 76-year-old patient, follows with Dr. Mk Carrion. Chronic stable medical conditions include hypertension, hyperlipidemia, prostate disorder, seizure disorder, history of subdural hematoma following the seizure fall and large prostate. Patient has a known history of CAD with stent. Recently underwent a positive stress test and was due for a cardiac catheterization tomorrow. Patient presents with increasing chest pain. Central. No radiation. Took 4 nitroglycerin today. Tired. Some shortness of breath. No dizziness or lightheadedness. Patient has chronic pain in the joints. Accompanied by his . Being put on IV heparin. Increasing pain with activity. Review of systems: GEN.: Tired EYES: None HEENT: Decreased hearing NECK: None RESPIRATORY: None CARDIOVASCULAR: As above GASTROINTESTINAL: None GENITOURINARY: None MUSCULOSKELETAL: Joint pains LYMPHATICS: None HEMATOLOGICAL: None PSYCHIATRY: None NEUROLOGICAL: None Past medical history to include: Hyperlipidemia, hypertension, BPH, subdural hematoma was secondary to fall from seizure, 2009. Skin cancer. CAD with stent. Social history: Smoked a pipe 2 1999. No alcohol. 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 . Family history: CAD Physical examination: VITAL SIGNS: 98.5, 58, 20, 140/83, 96% room air GENERAL: BMI 27.4, sitting on edge of bed, awake, bit tired. EYES: Pupils equal. Conjunctiva normal. HEENT: External appearance of nose and ears normal, oral cavity grossly normal hard of hearing. NECK: JVD not raised; masses not palpable. HEART: First and second heart sounds are normal; no edema. LUNGS: Respiratory rate normal; decreased breath sounds. ABDOMEN: Soft, nontender, liver spleen not palpable, no masses palpable. PSYCH: Alert and oriented x3; mood and affect normal. MUSCULOSKELETAL:No Clubbing/cyanosis;muscles-grossly intact. Evidence of OA especially in the hands NEUROLOGICAL: Cranial nerves grossly intact; no facial asymmetry, power and sensation grossly intact. LYMPHATICS: No lymph nodes palpable in the axilla and neck INVESTIGATIONS, reviewed in the clinical context: White count 7.5 hemoglobin 14.1 platelets 185 sodium 137 potassium 4.2 BUN 21 creatinine 0.86 Troponin I less than 0.012 proBNP 185 EKG tracing personally reviewed by me-normal sinus rhythm. Rate 52 Chest x-ray film personally reviewed by jacque rosales. No infiltrates Assessment and plan: -Unstable angina in a patient with known CAD. Patient just has a positive stress test. Having active chest pain. First troponin negative. Aspirin. IV heparin. Cardiology consulted. Nitropaste -Hyperlipidemia Lipitor 40 mg daily at bedtime -Hyperlipidemia Plan as opposed 10 mg twice a day Imdur ER 30 mg a day -Seizure disorder Keppra 5 mg twice a day -BPH Flomax 0.8 mg daily at bedtime -Primary osteoarthritis multiple joints bilaterally Tylenol when necessary. -GERD Pepcid 20 mg twice a day when necessary -IV heparin monitoring Follow PTT Home medications resumed. IV heparin. Telemetry. Cardiogenic consulted with a view to cardiac catheterization. Patient just had a positive stress test. Care was discussed with the patient and at the bedside. Past Medical History Past Medical History: Coronary Artery Disease (CAD), Cancer, Hyperlipidemia, Hypertension, Myocardial Infarction ([place]), Prostate Disorder, Seizure Disorder Additional Past Medical History / Comment(s): History of subdural hematoma, had seizure fell and hit head. Back pain. Hx seziure in 2009 and none since. Enlarged prostate. Hx skin cancer on back. Last Myocardial Infarction Date:: 2009 History of Any Multi-Drug Resistant Organisms: None Reported Past Surgical History: Appendectomy, Heart Catheterization With Stent, Hernia Repair, Joint Replacement, Orthopedic Surgery, Tonsillectomy Additional Past Surgical History / Comment(s): Rotator cuff repair X2, right knee arthroscopies/steroid injection to right knee, 2 heart stents 05/08/2003 and 02/22/2014, pain injections in back, left knee replacement, right shoulder corstisone injection, cancerous mole removed from back. Past Anesthesia/Blood Transfusion Reactions: No Reported Reaction Date of Last Stent Placement:: 02/22/2014 Past Psychological History: No Psychological Hx Reported Smoking Status: Former smoker Past Alcohol Use History: None Reported Past Drug Use History: None Reported - Past Family History Mother Family Medical History: No Reported History Father Family Medical History: Coronary Artery Disease (CAD) Medications and Allergies Home Medications Medication Instructions Recorded Confirmed Type Atorvastatin [Lipitor] 40 mg PO HS 01/24/18 12/03/21 History Benazepril HCl 10 mg PO BID 01/24/18 12/03/21 History Isosorbide Mononitrate ER [Imdur] 30 mg PO DAILY 01/24/18 12/03/21 History Multivit-Min/FA/Lycopen/Lutein 1 tab PO Q48H 07/18/18 12/03/21 History [Centrum Silver Tablet] Slow-Mag 143mg 2 tab PO HS 12/31/18 12/03/21 History Aspirin 325 mg PO HS 11/22/21 12/03/21 History Tamsulosin HCl [Flomax] 0.8 mg PO HS 11/22/21 12/03/21 History levETIRAcetam [Keppra] 500 mg PO BID 11/22/21 12/03/21 History Cholecalciferol [Vitamin D3 (25 25 mcg PO DAILY 12/03/21 12/03/21 History Mcg = 1000 Iu)] Famotidine [Pepcid] 20 mg PO BID PRN 12/03/21 12/03/21 History Naproxen Sodium [Aleve] 220 mg PO DAILY PRN 12/03/21 12/03/21 History [place]-3 Fatty Acids [[place]-3] 1,000 mg PO DAILY 12/03/21 12/03/21 History Temazepam [Restoril] 15 mg PO HS PRN 12/03/21 12/03/21 History Allergies Allergy/AdvReac Type Severity Reaction Status Date / Time quinine AdvReac CHILLS Verified 12/03/21 11:24 Physical Exam Vitals: Vital Signs Temp Pulse Resp BP Pulse Ox 12/03/21 10:59 98.5 F 58 L 20 145/83 96 Intake and Output 12/02/21 12/03/21 12/03/21 22:59 06:59 14:59 Other: Weight 77.111 kg Results CBC & Chem 7: 12/03/21 11:16 12/03/21 11:16 Labs: Abnormal Lab Results - Last 24 Hours (Table) 12/03/21 Range/Units 11:16 BUN 21 H (9-20) mg/dL Glucose 101 H (74-99) mg/dL
--- NOTE | 2021-12-03 14:43 | P.CRDCN ---
History of Present Illness Consult date: 12/03/21 History of present illness: HISTORY OF PRESENT ILLNESS: This is a 76-year-old male with a past medical history significant for coronary artery disease with previous stenting, hypertension, hyperlipidemia, subdural hematoma, and seizure disorder. Patient follows in the office with Dr. Vaughn. We have been asked to see the patient in consultation for chest pain. Patient examined at the bedside. Patient underwent Lexiscan stress test last month at the office which came back to be abnormal. He was scheduled for outpatient cardiac catheterization tomorrow. The patient states he woke up this morning and was having pain in the middle of his chest. He states it felt like a heavy pressure. He denied any radiation of the pain. He denied any shortness of breath. Denied any nausea or vomiting. Patient states he took nitro 4 times with relief for a short period of time but then the pain returned which prompted him to come to the emergency room. The patient was started on IV heparin. At the time of my examination, the patient denies any chest pain or pressure. * EKG reveals sinus bradycardia with no signs of acute ischemia. PVCs. * Chest xray likely basilar atelectasis or scarring. No interval change compared to previous exam. * Laboratory data: WBC 7.5. Hemoglobin 14.1. Platelet count 185. Sodium 137. Potassium 4.2. BUN 21. Creatinine 0.86. Magnesium 1.9. Troponin negative 1 * Current home cardiac medications include Imdur 30 mg daily, aspirin 325 mg at night, Lipitor 40 mg at night, and Benazepril 10mg BID * Most recent echocardiogram obtained in March 2021 revealed ejection fraction 55%, mild to moderate AR, mild MR, [id number] TR * Patient underwent Lexiscan stress test in October 2021 which revealed fixed defect in the inferior wall suggestive of previous myocardial infarction. This involves the inferior lateral wall. In addition there appears to be a [id number] reversible ischemia involving the anterior lateral segment making an abnormal study. Ejection fraction 55-60%. * Cardiac catheterization history: 2013 revealing significant lesion involving the mid PDA. The rest of the coronary anatomy does not show any significant changes from the previous catheter ablation. Stent placement to the PDA was performed. REVIEW OF SYSTEMS: At the time of my exam: CONSTITUTIONAL: Denies fever or chills. HEENT: Denies blurred vision, vision changes, or eye pain. Denies hemoptysis CARDIOVASCULAR: Denies chest pain. Denies orthopnea. Denies PND. Denies pal pitations RESPIRATORY: Denies shortness of breath. GASTROINTESTINAL: Denies abdominal pain. Denies nausea or vomiting. HEMATOLOGIC: Denies bleeding disorders. GENITOURINARY: Denies any blood in urine. SKIN: Denies pruitis. Denies rash. PHYSICAL EXAM: VITAL SIGNS: Reviewed. GENERAL: Well-developed in no acute distress. HEENT: Head is normocephalic. Pupils are equal, round. Sclerae anicteric. Mucous membranes of the mouth are moist. Neck supple. No JVD or thyromegaly LUNGS: Respirations even and unlabored. Lungs essentially clear to auscultation bilaterally. HEART: Regular rate and rhythm. S1 and S2 heard. Systolic murmur noted. ABDOMEN: Soft. Nondistended. Nontender. EXTREMITIES: Normal range of motion. No clubbing or cyanosis. Peripheral pulses intact. No lower extremity edema NEUROLOGIC: Awake and alert. Oriented x 3. ASSESSMENT: Chest pain Coronary artery disease with previous stenting Recent abnormal Lexiscan stress test Hypertension Hyperlipidemia History of subdural hematoma History of seizure disorder History of bradycardia PLAN: Resume home cardiac medications Continue IV heparin Trend troponins NPO at midnight Patient scheduled for cardiac cath tomorrow at 9am with Dr. Vaughn Further recommendations pending patient course Nurse practitioner note has been reviewed by physician. Signing provider agrees with the documented findings, assessment, and plan of care. Past Medical History Past Medical History: Coronary Artery Disease (CAD), Cancer, Hyperlipidemia, Hypertension, Myocardial Infarction (HI), Prostate Disorder, Seizure Disorder Additional Past Medical History / Comment(s): History of subdural hematoma, had seizure fell and hit head. Back pain. Hx seziure in 2010 and none since. Enlarg ed prostate. Hx skin cancer on back. Last Myocardial Infarction Date:: 2009 History of Any Multi-Drug Resistant Organisms: None Reported Past Surgical History: Appendectomy, Heart Catheterization With Stent, Hernia Repair, Joint Replacement, Orthopedic Surgery, Tonsillectomy Additional Past Surgical History / Comment(s): Rotator cuff repair X2, right knee arthroscopies/steroid injection to right knee, 2 heart stents 05/08/2003 and 02/22/2014, pain injections in back, left knee replacement, right shoulder corstisone injection, cancerous mole removed from back. Past Anesthesia/Blood Transfusion Reactions: No Reported Reaction Date of Last Stent Placement:: 02/22/2014 Past Psychological History: No Psychological Hx Reported Smoking Status: Former smoker Past Alcohol Use History: None Reported Past Drug Use History: None Reported - Past Family History Mother Family Medical History: No Reported History Father Family Medical History: Coronary Artery Disease (CAD) Medications and Allergies Home Medications Medication Instructions Recorded Confirmed Type Atorvastatin [Lipitor] 40 mg PO HS 01/24/18 12/03/21 History Benazepril HCl 10 mg PO BID 01/24/18 12/03/21 History Isosorbide Mononitrate ER [Imdur] 30 mg PO DAILY 01/24/18 12/03/21 History Multivit-Min/FA/Lycopen/Lutein 1 tab PO Q48H 07/18/18 12/03/21 History [Centrum Silver Tablet] Slow-Mag 143mg 2 tab PO HS 12/31/18 12/03/21 History Aspirin 325 mg PO HS 11/22/21 12/03/21 History Tamsulosin HCl [Flomax] 0.8 mg PO HS 11/22/21 12/03/21 History levETIRAcetam [Keppra] 500 mg PO BID 11/22/21 12/03/21 History Cholecalciferol [Vitamin D3 (25 25 mcg PO DAILY 12/03/21 12/03/21 History Mcg = 1000 Iu)] Famotidine [Pepcid] 20 mg PO BID PRN 12/03/21 12/03/21 History Naproxen Sodium [Aleve] 220 mg PO DAILY PRN 12/03/21 12/03/21 History [place]-3 Fatty Acids [[place]-3] 1,000 mg PO DAILY 12/03/21 12/03/21 History Temazepam [Restoril] 15 mg PO HS PRN 12/03/21 12/03/21 History Allergies Allergy/AdvReac Type Severity Reaction Status Date / Time quinine AdvReac CHILLS Verified 12/03/21 11:24 Physical Exam Vitals: Vital Signs Temp Pulse Resp BP Pulse Ox 12/03/21 10:59 98.5 F 58 L 20 145/83 96 Intake and Output 12/02/21 12/03/21 12/03/21 22:59 06:59 14:59 Other: Weight 77.111 kg Results 12/03/21 11:16 12/03/21 11:16 Cardiac Enzymes 12/03/21 12/03/21 Range/Units 11:16 11:16 AST 30 (17-59) U/L Troponin I <0.012 (0.000-0.034) ng/mL Coagulation 12/03/21 Range/Units 11:16 PT 10.7 (9.0-12.0) sec APTT 25.1 (22.0-30.0) sec CBC 12/03/21 Range/Units 11:16 WBC 7.5 (3.8-10.6) k/uL RBC 4.49 (4.30-5.90) m/uL Hgb 14.1 (13.0-17.5) gm/dL Hct 42.7 (39.0-53.0) % Plt Count 185 (150-450) k/uL Comprehensive Metabolic Panel 12/03/21 Range/Units 11:16 Sodium 137 (137-145) mmol/L Potassium 4.2 (3.5-5.1) mmol/L Chloride 106 (98-107) mmol/L Carbon Dioxide 25 (22-30) mmol/L BUN 21 H (9-20) mg/dL Creatinine 0.86 (0.66-1.25) mg/dL Glucose 101 H (74-99) mg/dL Calcium 8.7 (8.4-10.2) mg/dL AST 30 (17-59) U/L ALT 27 (4-49) U/L Alkaline Phosphatase 76 (38-126) U/L Total Protein 6.6 (6.3-8.2) g/dL Albumin 3.8 (3.5-5.0) g/dL Current Medications Generic Name Dose Route Start Last Admin Trade Name Freq PRN Reason Stop Dose Admin Acetaminophen 650 mg 12/03/21 13:07 Acetaminophen Tab 325 Mg Tab PO Q6HR PRN Mild Pain or Fever > 100.5 Aspirin 325 mg 12/04/21 09:00 Aspirin 325 Mg Tab PO DAILY GLORIA Atorvastatin Calcium 40 mg 12/03/21 21:00 Atorvastatin 40 Mg Tab PO HS GLORIA Calcium Carbonate/Glycine 1,000 mg 12/03/21 13:07 Calcium Carbonate 500 Mg Chewable PO Q4HR PRN Dyspepsia Cholecalciferol 25 mcg 12/04/21 09:00 Cholecalciferol 25 Mcg (1000 Iu) Tablet PO DAILY GLORIA Famotidine 20 mg 12/03/21 13:06 Famotidine 20 Mg Tab PO BID PRN Heartburn Heparin Sodium/Sodium Chloride 250 mls @ 9.253 mls/hr 12/03/21 13:00 12/03/21 13:15 25,000 unit/ Sodium Chloride IV 12 units/kg/hr .Q24H GLORIA 9.253 mls/hr Administration Protocol 12 UNITS/KG/HR Lactulose 20 gm 12/03/21 13:07 Lactulose 20 Gm/30 Ml Cup PO DAILY PRN Constipation Levetiracetam 500 mg 12/03/21 21:00 Levetiracetam 500 Mg Tab PO BID [facility] Lisinopril 20 mg 12/04/21 09:00 Lisinopril 20 Mg Tab PO DAILY GLORIA Lorazepam 0.5 mg 12/03/21 13:07 Lorazepam 0.5 Mg Tab PO Q6HR PRN Anxiety Magnesium Oxide 400 mg 12/03/21 21:00 Magnesium Oxide 400 Mg Tab PO HS GLROIA Naloxone HCl 0.2 mg 12/03/21 13:07 Naloxone 0.4 Mg/Ml 1 Ml Vial IV Q2M PRN Opioid Reversal Nitroglycerin 0.4 mg 12/03/21 12:38 Nitroglycerin Sl Tabs 0.4 Mg Tab SUBLINGUAL Q5M PRN Chest Pain Nitroglycerin 1 inch 12/03/21 18:00 Nitroglycerin Oint 1 Inch/Gm Packet TOPICAL Q6HR [facility] Prochlorperazine Maleate 5 mg 12/03/21 13:07 Prochlorperazine 5 Mg Tab PO Q8HR PRN Nausea And Vomiting Tamsulosin HCl 0.8 mg 12/03/21 21:00 Tamsulosin 0.4 Mg Cap.Er.24h PO HS GLORIA Temazepam 15 mg 12/03/21 13:06 Temazepam 15 Mg Cap PO HS PRN Insomnia Tramadol HCl 50 mg 12/03/21 13:07 Tramadol 50 Mg Tab PO Q6H PRN Moderate Pain Intake and Output 12/02/21 12/03/21 12/03/21 22:59 06:59 14:59 Other: Weight 77.111 kg Patient Weight 12/04/21 06:59 Weight 77.111 kg 12/03/21 11:16 12/03/21 11:16
[2021-12-03] MEDS: NITROGLYCERIN OINT 1 INCH/GM PACKET TOPICAL SCH (17:30)
[2021-12-03] MEDS ORDERED: ATORVASTATIN 40 MG TAB PO SCH (21:00)
[2021-12-03] MEDS ORDERED: MAGNESIUM OXIDE 400 MG TAB PO SCH (21:00)
[2021-12-03] MEDS ORDERED: TAMSULOSIN 0.4 MG CAP.ER.24H PO SCH (21:00)
[2021-12-03] MEDS: levETIRAcetam 500 MG TAB PO SCH (23:25)
[2021-12-04] MEDS: NITROGLYCERIN OINT 1 INCH/GM PACKET TOPICAL SCH ×2 (03:13→06:04)
[2021-12-04] MEDS ORDERED: ASPIRIN 81 MG PO SCH (09:00)
[2021-12-04] MEDS ORDERED: lisinopriL 20 MG TAB PO SCH (09:00)
[2021-12-04] MEDS ORDERED: CHOLECALCIFEROL 25 MCG (1000 IU) TABLET PO SCH (09:00)
[2021-12-04] MEDS ORDERED: ASPIRIN 325 MG TAB PO SCH ×2 (09:00→21:00)
[2021-12-04] MEDS ORDERED: ASPIRIN 81 MG PO ONE ×2 (09:07→09:10)
[2021-12-04] MEDS ORDERED: IV FLUID CONTINUATION 900 ML IV ONE (09:10)
[2021-12-04] MEDS: MIDAZOLAM 2 MG/2 ML VIAL IV ONE ×3 (09:10→10:27)
[2021-12-04] MEDS: fentaNYL (PF) 50 MCG/ML 2 ML AMP IV ONE ×2 (09:10→09:16)
[2021-12-04] MEDS ORDERED: LIDOCAINE 1% INJ 10MG/ML (20 ML MDV) SQ ONE (09:15)
[2021-12-04] MEDS ORDERED: VERAPAMIL SYRINGE (5 MG/10 ML) INTRAARTER ONE (09:17)
[2021-12-04] MEDS: HEPARIN SODIUM 1,000 UN/ML (10ML VL) IV ONE ×2 (09:23→10:28)
--- NOTE | 2021-12-04 09:48 | P.CARDCATH ---
Date of Procedure: 12/04/21 Preoperative Diagnosis: Unstable angina, positive stress test Postoperative Diagnosis: Critical lesion involving the circumflex Procedure(s) Performed: Left heart catheterization without left ventriculography Description of Procedure: HISTORY: This is a 76-year-old gentleman with history of ischemic heart disease with previous stent placement of the PDA and also circumflex coronary artery. Patient has been having exertional shortness of breath. He was evaluated by stress test which showed ischemia in the anteroapical and lateral wall area. Patient is advised to have a cardiac catheterization for definitive diagnosis. Patient is also admitted yesterday to the hospital with recurrent chest pains. Cardiac enzymes have been negative CONSENT:I have discussed the risks, benefits and alternative therapies for the above-mentioned procedure and for both sedation/analgesia as well as necessary blood product administration, if indicated, as they pertain to this patient. The patient has indicated understanding and acceptance of the risks and procedures discussed. PROCEDURE: Patient was brought to the lab in a fasting state. Patient was given some IV sedation. The right wrist is infiltrated with lidocaine and right radial artery was entered using Seldinger technique. A 6-Ind[place]ian catheter was left in place and selective coronary arteriography was performed. Patient tolerated the procedure well. Patient is found to have a significant lesion in the circumflex and waiting to have evaluation by Dr. Brumfield for possible stent placement Conscious Sedation: Versed 1.5mg Fentanyl 50 micrograms Duration 16minutes HEMODYNAMICS: The aortic pressure is 120/70. The left ventricle end-diastolic pressure is about 5-10. No gradient across the aortic valve SELECTIVE CORONARY ARTERIOGRAPHY: LEFT MAIN: Normal length and free of any critical lesions THE LEFT ANTERIOR DESCENDING CORONARY ARTERY: This is a fair caliber vessel giving rise to several small diagonals and septal branches. Has mild diffuse plaque without any critical lesions THE LEFT CIRCUMFLEX AND IS CORONARY ARTERY: This is a good caliber vessel giving rise to good-sized OM branch. OM branch has a focal about 70-70% lesion. THE RIGHT CORONARY ARTERY: This is a good caliber vessel giving rise to PDA and PLV. The stent in the PDA appears to be patent. There is mild disease involving the PLV branch LEFT VENTRICULOGRAPHY: Not performed FINAL IMPRESSION: Critical lesion involving the circumflex/OM branch PLAN: Films to be reviewed by Dr. Brumfield for possible stent placement of the circumflex PROGNOSIS: . Good
[2021-12-04] MEDS ORDERED: CLOPIDOGREL 75 MG TAB PO ONE (10:14)
[2021-12-04] MEDS ORDERED: NITROGLYCERIN 1000MCG/10ML SYRINGE INTRACORON ONE (10:35)
[2021-12-04] MEDS ORDERED: IOPAMIDOL-370 125ML BTL INJ ONE (10:43)
[2021-12-04] MEDS ORDERED: MIDAZOLAM 2 MG/2 ML VIAL IV ONE (10:46)
[2021-12-04] MEDS ORDERED: IOPAMIDOL-370 100ML BTL INJ ONE (10:55)
[2021-12-04] MEDS ORDERED: ATROPINE SULFATE 0.1 MG/ML 10ML SYRINGE IV PRN (11:03)
[2021-12-04] MEDS ORDERED: MAG HYDROX/AL HYDROX/SIMETH 30 ML CUP PO PRN (11:03)
[2021-12-04] MEDS ORDERED: NITROGLYCERIN SL TABS 0.4 MG TAB SUBLINGUAL PRN (11:03)
[2021-12-04] MEDS ORDERED: ZOLPIDEM 5 MG TAB PO PRN (11:03)
[2021-12-04] MEDS ORDERED: RX INFO: IV CONTRAST WAS GIVEN 1 EACH MISC MISCELLANE PRN (11:03)
[2021-12-04] MEDS ORDERED: SODIUM CHLORIDE 0.9% 1,000 ML in EMPTY BAG 1 BAG IV SCH (11:15)
--- NOTE | 2021-12-04 11:22 | P.CARDCATH ---
Date of Procedure: 12/04/21 Description of Procedure: PERCUTANEOUS TRANSLUMINAL CORONARY ANGIOPLASTY CLINICAL INFORMATION: The patient is a 76 male with a known history of CAD, prior PCI who presented with progressive angina pectoris. He underwent cardiac catheterization and was found to have significant disease involving the left c ircumflex obtuse marginal branch. Recommendations were made regarding angioplasty and stenting, the procedure as well as the risks and the complications were discussed with the patient who was in full understanding and agreement. PROCEDURE: A 6 Prydeinig EBU 3.75 guiding catheter was introduced into the system. After cannulating the left main, a 0.014 balanced medium J-wire was advanced across the lesion and positioned distally. Following that a 2.5 x 12 mm NC Treck balloon was advanced and when inflation at 10 corina was done. Following that a 2.75X 38 millimeter laury point stent was deployed. It was dilated at 16 corina. After that a 3.2X8 mm NC Treck balloon was advanced to the proximal and when inflation at 10 corina was done, after removing the balloon 3.0 x 20 mm NC Treck was advanced and when inflation at 10 corina was done. After the last inflation, after appropriate wait, the balloon and the guidewire were withdrawn back into the guiding catheter. Images were obtained and repeated. Those images reveal stable successful stenting. At that point, the guiding catheter, the balloon, and guidewire were removed. The sheath was removed. Hemostasis was obtained with deployment 50 armband. There were no immediate complications. The patient was returned to the room in stable condition. Of note, the patient received additional 1000 units of heparin as well as Plavix. His ACT was monitored. He had no chest discomfort or EKG changes with the inflation. RESULTS: Successful stenting of the first obtuse marginal branch with reduction of stenosis from 80 % to 0 %. RECOMMENDATIONS: The patient will be continued on dual antiplatelet treatment for at least 6 months with aggressive coronary risks modifications. The findings and recommendations were discussed with the patient and his family, they are in full understanding and agreement. Duration of sedation 30 minutes.
[2021-12-04 11:54] VITALS: RESP 18
[2021-12-04] MEDS: levETIRAcetam 500 MG TAB PO SCH (11:55)
[2021-12-04 13:38] VITALS: BMI 27.4
[2021-12-04 14:27] LABS: Chol/HDL Ratio 1.97 Ratio; LDL Cholesterol,Calculated 48.1 mg/dL (0.0-131.0); VLDL Calculation 15.92 mg/dL (5.00-40.00)
[2021-12-04 16:25] VITALS: BP 161/86; PULSE 63; TEMP 97.3
[2021-12-05] MEDS ORDERED: ASPIRIN 81 MG PO SCH (09:00)
[2021-12-05] MEDS ORDERED: ISOSORBIDE MONONITRATE ER 30 MG TAB.ER.24H PO SCH (09:00)
[2021-12-05] MEDS ORDERED: CLOPIDOGREL 75 MG TAB PO SCH (09:00)
--- NOTE | 2021-12-05 10:29 | P.DS ---
Providers Date of admission: 12/03/21 12:40 Expected date of discharge: 12/04/21 Attending physician: Zeeshan Snow Primary care physician: Mk Carrion [facility] Course: Chief Complaint: Chest pain This is a pleasant 76-year-old patient, follows with Dr. Mk Carrion. Chronic stable medical conditions include hypertension, hyperlipidemia, prostate disorder, seizure disorder, history of subdural hematoma following the seizure fall and large prostate. Patient has a known history of CAD with stent. Recently underwent a positive stress test and was due for a cardiac catheterization tomorrow. Patient presents with increasing chest pain. Central. No radiation. Took 4 nitroglycerin today. Tired. Some shortness of breath. No dizziness or lightheadedness. Patient has chronic pain in the joints. Accompanied by his . Being put on IV heparin. Increasing pain with activity. December 04: Patient had cardiac catheterization done. Successful stenting of the first of acute marginal branch was done by Dr. Brumfield. Patient laying in bed. No chest pain or shortness of breath. Care was discussed with the patient by some of the bedside. No further questions. Discussion and discharge planning more than 35 minutes Past medical history to include: Hyperlipidemia, hypertension, BPH, subdural hematoma was secondary to fall from seizure, 2009. Skin cancer. CAD with stent. Social history: Smoked a pipe 2 1999. No alcohol. 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 . Family history: CAD Physical examination: VITAL SIGNS: 97.4, 71, 18, 125/48, 96% room air GENERAL: Laying in bed, awake, comfortable. EYES: Pupils equal. Conjunctiva normal. HEENT: External appearance of nose and ears normal, oral cavity grossly normal hard of hearing. NECK: JVD not raised; masses not palpable. HEART: First and second heart sounds are normal; no edema. LUNGS: Respiratory rate normal; decreased breath sounds. ABDOMEN: Soft, nontender, liver spleen not palpable, no masses palpable. PSYCH: Alert and oriented x3; mood and affect normal. MUSCULOSKELETAL:No Clubbing/cyanosis;muscles-grossly intact. Evidence of OA especially in the hands INVESTIGATIONS, reviewed in the clinical context: Cardiac catheterization: Stent to obtuse marginal White count 7.5 hemoglobin 14.1 platelets 185 sodium 137 potassium 4.2 BUN 21 creatinine 0.86 Troponin I less than 0.012 proBNP 185 EKG tracing personally reviewed by me-normal sinus rhythm. Rate 52 Chest x-ray film personally reviewed by me-simone rosales. No infiltrates Assessment and plan: -Unstable angina in a patient with known CAD. Patient just has a positive stress test. troponin negative. Aspirin. IV heparin. Patient had a stent to obtuse marginal by Dr. Brumfield. -Hyperlipidemia Lipitor 40 mg daily at bedtime -Essential hypertension benazapril 10 mg twice a day Imdur ER 30 mg a day -Seizure disorder Keppra 500 mg twice a day -BPH Flomax 0.8 mg daily at bedtime -Primary osteoarthritis multiple joints bilaterally Tylenol when necessary. -GERD Pepcid 20 mg twice a day when necessary Disposition: Home Plan - Discharge Summary Discharge Rx Participant: Yes New Discharge Prescriptions: New Clopidogrel [Plavix] 75 mg PO DAILY #90 tab Aspirin 81 mg PO HS tab Nitroglycerin Sl Tabs [Nitrostat] 0.4 mg SUBLINGUAL Q5M PRN #30 tab PRN Reason: Chest Pain Continue Isosorbide Mononitrate ER [Imdur] 30 mg PO DAILY Benazepril HCl 10 mg PO BID Atorvastatin [Lipitor] 40 mg PO HS Multivit-Min/FA/Lycopen/Lutein [Centrum Silver Tablet] 1 tab PO Q48H Slow-Mag 143mg 2 tab PO HS Tamsulosin HCl [Flomax] 0.8 mg PO HS Cholecalciferol [Vitamin D3 (25 Mcg = 1000 Iu)] 25 mcg PO DAILY Temazepam [Restoril] 15 mg PO HS PRN PRN Reason: Insomnia levETIRAcetam [Keppra] 500 mg PO BID [place]-3 Fatty Acids [[place]-3] 1,000 mg PO DAILY Famotidine [Pepcid] 20 mg PO BID PRN PRN Reason: Heartburn Discontinued Aspirin 325 mg PO HS Naproxen Sodium [Aleve] 220 mg PO DAILY PRN PRN Reason: Pain Discharge Medication List Atorvastatin [Lipitor] 40 mg PO HS 01/24/18 [History] Benazepril HCl 10 mg PO BID 01/24/18 [History] Isosorbide Mononitrate ER [Imdur] 30 mg PO DAILY 01/24/18 [History] Multivit-Min/FA/Lycopen/Lutein [Centrum Silver Tablet] 1 tab PO Q48H 07/18/18 [History] Slow-Mag 143mg 2 tab PO HS 12/31/18 [History] Tamsulosin HCl [Flomax] 0.8 mg PO HS 11/22/21 [History] levETIRAcetam [Keppra] 500 mg PO BID 11/22/21 [History] Cholecalciferol [Vitamin D3 (25 Mcg = 1000 Iu)] 25 mcg PO DAILY 12/03/21 [History] Famotidine [Pepcid] 20 mg PO BID PRN 12/03/21 [History] [place]-3 Fatty Acids [[place]-3] 1,000 mg PO DAILY 12/03/21 [History] Temazepam [Restoril] 15 mg PO HS PRN 12/03/21 [History] Aspirin 81 mg PO HS tab 12/04/21 [Rx] Clopidogrel [Plavix] 75 mg PO DAILY #90 tab 12/04/21 [Rx] Nitroglycerin Sl Tabs [Nitrostat] 0.4 mg SUBLINGUAL Q5M PRN #30 tab 12/04/21 [Rx] Follow up Appointment(s)/Referral(s): Mk Carrion MD [Primary Care Provider] - 1-2 days (please call for an appointment ) Jin Vaughn MD [STAFF PHYSICIAN] - 1 Week (please call tomorrow to set up an appointment ) Patient Instructions/Handouts: Heart Catheterization (GEN) Discharge Disposition: HOME SELF-CARE
== END 2021-12-04 17:40 | disposition home or self-care (01) ==
LOC: EC 10:55 → 6NMEDSUR 12:40
PROVIDERS: ADMIT Hospitalist; ATTEND Hospitalist
DX: I25.110 Atherosclerotic heart disease of native coronary artery with unstable angina pectoris (principal); I10 Essential (primary) hypertension; E78.5 Hyperlipidemia, unspecified; I49.3 Ventricular premature depolarization; R94.39 Abnormal result of other cardiovascular function study; N40.0 Benign prostatic hyperplasia without lower urinary tract symptoms; G40.909 Epilepsy, unspecified, not intractable, without status epilepticus; I25.2 Old myocardial infarction; Z91.81 History of falling; M15.9 Polyosteoarthritis, unspecified; G89.29 Other chronic pain; K21.9 Gastro-esophageal reflux disease without esophagitis; Z79.82 Long term (current) use of aspirin; Z79.899 Other long term (current) drug therapy; Z88.8 Allergy status to other drugs, medicaments and biological substances; Z95.5 Presence of coronary angioplasty implant and graft; Z87.820 Personal history of traumatic brain injury; Z96.652 Presence of left artificial knee joint; Z90.49 Acquired absence of other specified parts of digestive tract; Z85.828 Personal history of other malignant neoplasm of skin; Z98.890 Other specified postprocedural states; Z87.891 Personal history of nicotine dependence; Z82.49 Family history of ischemic heart disease and other diseases of the circulatory system
CPT/HCPCS: 96376; 96365; 96366 ×2; 99291; 36415; 93005 ×2; 93458; 83880; 80061; 80053; 83735; 84484; 85025; 85610; 85730 ×2; 71046; G0378 ×2; C9600; C1769 ×2; C1887; C1894; C1725 ×3; C1874; J2250; J2001; J3010; J1644 ×3; Q9967 ×2

== ENCOUNTER 2022-03-25 09:41 | Day surgery (SDC) | payer MEDICARE ==
[2022-03-24 08:39] VITALS: BMI 27.4
[2022-03-25 10:43] LABS: Basophils % (A) 1 %; Eosinophils # (A) 0.3 k/uL (0-0.7); Eosinophils % (A) 5 %; HCT 44.6 % (39.0-53.0); HGB 14.8 gm/dL (13.0-17.5); Lymphocytes % (A) 31 %; MCH 30.9 pg (25.0-35.0); MCHC 33.1 g/dL (31.0-37.0); MCV 93.3 fL (80.0-100.0); Mean Platelet Volume 8.4; Monocytes # (A) 0.5 k/uL (0-1.0); Monocytes % (A) 8 %; Neutrophils # (A) 3.4 k/uL (1.3-7.7); Neutrophils % (A) 54 %; Platelet Count 166 k/uL (150-450); RBC 4.78 m/uL (4.30-5.90); WBC 6.3 k/uL (3.8-10.6)
[2022-03-25 10:53] LABS: African American GFR (CKD) >90 (>60 ml/min/1.73 sqM); Anion Gap 4 mmol/L; Blood Urea Nitrogen 20 mg/dL (9-20); Calcium 8.8 mg/dL (8.4-10.2); Carbon Dioxide 27 mmol/L (22-30); Chloride 107 mmol/L (98-107); Glucose 96 mg/dL (74-99); Non-African American GFR(CKD) 84 (>60 ml/min/1.73 sqM); Potassium 4.9 mmol/L (3.5-5.1); Sodium 138 mmol/L (137-145)
[2022-03-25] MEDS ORDERED: ePHEDrine 50 MG/ML 1 ML VIAL ONE (12:04)
[2022-03-25] MEDS ORDERED: WATER FOR INJECTION, STERILE 10 ML VIAL IV ONE (12:04)
[2022-03-25] MEDS ORDERED: PROPOFOL 10 MG/ML 20 ML VIAL IV ONE (12:04)
[2022-03-25] MEDS ORDERED: SUCCINYLCHOLINE CHLORIDE 200 MG/10 ML VIAL IV ONE (12:04)
[2022-03-25] MEDS ORDERED: GLYCOPYRROLATE 0.2 MG/ML 2 ML VIAL ONE (12:04)
[2022-03-25] MEDS ORDERED: fentaNYL (PF) 50 MCG/ML 2 ML AMP ONE (12:04)
[2022-03-25] MEDS ORDERED: ONDANSETRON 4 MG/2 ML VIAL ONE (12:04)
[2022-03-25] MEDS ORDERED: HEPARIN SODIUM,PORCINE 5,000 UNIT/ML 1 ML VIAL ONE (12:04)
[2022-03-25] MEDS ORDERED: LIDOCAINE 2% INJ 20 MG/ML (2 ML VIAL) ONE (12:04)
[2022-03-25] MEDS ORDERED: IV FLUID CONTINUATION 1,000 ML IV ONE (12:09)
[2022-03-25] MEDS ORDERED: HEPARIN SOD,PORK IN 0.45% NACL 25,000 UNIT in 0.45% NACL 1 250ML.BAG IV ONE ×2 (12:45)
[2022-03-25] MEDS ORDERED: LIDOCAINE 1% INJ 10MG/ML (5 ML VIAL-PF) SQ ONE (12:50)
[2022-03-25] MEDS ORDERED: IOPAMIDOL-370 100ML BTL INJ ONE (15:12)
[2022-03-25] MEDS ORDERED: ACETAMINOPHEN IV (For NPO) 1,000 MG in EMPTY BAG 1 BAG IVPB ONE (15:19)
--- NOTE | 2022-03-25 15:52 | P.EPPROC ---
- EP Procedure Note Electrophysiology Procedure Note: PROCEDURE A. fib ablation/PVI DIAGNOSIS Paroxysmal Atrial fibrillation, symptomatic, refractory to therapy RESULT No left atrial appendage mass seen on intracardiac echo, normal LV function Chronic pericarditis, pericardial thickening with a small amount of fluid at baseline Successful A. fib ablation/pulmonary vein isolation of all veins using cryo- ablation including a separate right middle pulmonary vein Complete entrance block in all 4 veins confirmed No evidence for phrenic nerve injury Esophageal deflection YES, right-sided esophagus PROCEDURE DETAILS Patient was brought to the EP lab in a fasting state after obtaining written informed consent. Procedure performed under general anesthesia Esophagus was intubated. Esophageal temperature monitoring with circa catheter. Esophageal deflection with an endoscope to avoid hypothermia of the esophagus. After initial muscle relaxant use, muscle relaxants were not given thereafter in order to assess phrenic nerve during procedure. Patient prepped and draped as per protocol Cryo ablation-set up with standard preparation of the cryoablation tools done. Femoral Venous access obtained on the right and left groins and sheaths placed Diagnostic catheters for the high right atrium, phrenic nerve stimulation and pacing, His bundle, coronary sinus placed Intracardiac echo catheter placed. Long sheath placed in the right atrium Left and right transseptal catheterization performed under intracardiac echo guidance. Intravenous heparin with aCT above 300 Later, catheter positioning and balloon positioning in the left atrium and pulmonary veins, under intracardiac echo guidance Diagnostic EP study with coronary sinus pacing and recording Baseline measurements: Sinus cycle length: 40 ms, HI interval 179 ms, QRS 93 and QT 466 ms AH 130 ms, HV 35 ms Sinus node recovery times at 600, 500 and 400 ms were 1142, 1188 and 1193 ms AV node Wenckebach block 400 ms Transseptal catheterization performed RA pressure 11/3/7 LA pressure 19/6/12 Transseptal catheterization performed with standard sheath. The cryoablation sheath was then placed with an over the wire exchange without any acute complications. The cryoablation balloon was placed in the office of each pulmonary vein and all 4 pulmonary veins were isolated. IV dye was injected to confirm occlusion. Goal: achieve complete occlusion of the pulmonary vein, achieve -30 degrees C at 30 seconds and achieve -40 degrees C at 60 seconds and a time to effect of less than 60 seconds. If not, the balloon was repositioned to obtain this result After completion of Cryoblation with durations from 180-240 seconds, entrance block was confirmed with the Attain circular catheter in a roving fashion around the antrum of the pulmonary veins Phrenic nerve pacing was performed from the SVC, right innominate vein area and diaphragm voltage was monitored. Diaphragmatic contractions were also monitored manually for strength of contraction. At the end of the procedure the Achieve catheter was once again used to check for entrance block Phrenic nerve stimulation was performed to confirm diaphragmatic stimulation the end of the procedure Negative phrenic nerve stimulation within RSPV Cine fluoroscopy was performed at the very end of the procedure to confirm movement of both diaphragms with inspiration and expiration At the end of the procedure the patient was extubated Venous sheaths were removed and hemostasis assured with a closure device PROCEDURES PERFORMED Diagnostic EP study CS pacing and recording Left and right transseptal catheterization Catheter the mapping of the tachycardia Intracardiac echocardiography Pulmonary vein isolation with transseptal and comprehensive EPS, [id number] Extended procedure on account of for difficult transseptal thick interatrial septum and complex right pulmonary venous anatomy with a separate right middle
--- NOTE | 2022-03-25 15:58 | P.HPCAR ---
History of Present Illness This is Dr. Ocampo dictating an H/P on this patient The patient was interviewed and examined IMPRESSION / ASSESSMENT: Paroxysmal atrial fibrillation Continues to complain of palpitations and tiredness and fatigue Documented episodes of always atrial fibrillation Coronary artery disease status post stenting to the PDA and then more recently induce marginal Preserved LV systolic function with moderate aortic and moderate tricuspid regurgitation PLAN: Pulmonary vein isolation/A. fib ablation HPI Patient continues to complain of tiredness and fatigue as well as recurrent palpitations No loss of consciousness ROS: No fever chills or rigors, no cough, phlegm or expectoration, no nausea, vomiting or diarrhea, no hematuria, dysuria, no musculoskeletal complaints, no strokes or seizures, no skin lesions. EXAMINATION: Afebrile 96.9F pulse rate in the 50s blood pressure 136/63 mmHg Normal heart sounds normal S1 normal S2 Soft systolic murmur Clear lungs rhonchi no crackles No JVD No lower extremity edema REVIEW OF LABS, ECG & MEDICAL DATA Hemoglobin 14.8, platelet count 166,000 Sodium 138, potassium 4.9 BUN 20 and creatinine 0.83 Physical Exam Vitals: Vital Signs Temp Pulse Resp BP Pulse Ox 03/25/22 10:32 96.9 F L 56 L 16 136/63 96 Intake and Output 03/25/22 03/25/22 03/25/22 06:59 14:59 22:59 Intake Total 671 0 Balance 671 0 Intake: IV 671 0 Other: Weight 77.8 kg Past Medical History Past Medical History: Atrial Flutter, Coronary Artery Disease (CAD), Cancer, Hyperlipidemia, Hypertension, Myocardial Infarction ([place]), Prostate Disorder, Seizure Disorder Additional Past Medical History / Comment(s): Hx subdural hematoma from seizure & fall., Hx seziure in 2009 and none since. , BPH., skin cancer., back pain., See Cardiology H & P. Last Myocardial Infarction Date:: 2009 History of Any Multi-Drug Resistant Organisms: None Reported Past Surgical History: Appendectomy, Heart Catheterization With Stent, Hernia Repair, Joint Replacement, Orthopedic Surgery, Tonsillectomy Additional Past Surgical History / Comment(s): Rotator cuff repair X2, right knee arthroscopies/steroid injection to right knee, heart caths with stents 05/08/2003, 02/22/2014 & 12/04/21., pain injections in back, left knee replacement, right shoulder corstisone injection, cancerous mole removed from back., cataracts Past Anesthesia/Blood Transfusion Reactions: No Reported Reaction, Motion Sickness Date of Last Stent Placement:: 12/04/21 Past Psychological History: No Psychological Hx Reported Smoking Status: Former smoker Past Alcohol Use History: None Reported Additional Past Alcohol Use History / Comment(s): Quit smoking in 1999 -SMOKED A PIPE. Past Drug Use History: None Reported - Past Family History Mother Family Medical History: No Reported History Father Family Medical History: Coronary Artery Disease (CAD) Physical Examination Vital Signs Temp Pulse Resp BP Pulse Ox 03/25/22 10:32 96.9 F L 56 L 16 136/63 96 Intake and Output 03/25/22 03/25/22 03/25/22 06:59 14:59 22:59 Intake Total 671 0 Balance 671 0 Intake: IV 671 0 Other: Weight 77.8 kg Results 03/25/22 10:22 03/25/22 10:22 CBC 03/25/22 Range/Units 10:22 WBC 6.3 (3.8-10.6) k/uL RBC 4.78 (4.30-5.90) m/uL Hgb 14.8 (13.0-17.5) gm/dL Hct 44.6 (39.0-53.0) % Plt Count 166 (150-450) k/uL Comprehensive Metabolic Panel 03/25/22 Range/Units 10:22 Sodium 138 (137-145) mmol/L Potassium 4.9 (3.5-5.1) mmol/L Chloride 107 (98-107) mmol/L Carbon Dioxide 27 (22-30) mmol/L BUN 20 (9-20) mg/dL Creatinine 0.83 (0.66-1.25) mg/dL Glucose 96 (74-99) mg/dL Calcium 8.8 (8.4-10.2) mg/dL Current Medications Generic Name Dose Route Start Last Admin Trade Name Freq PRN Reason Stop Dose Admin Acetaminophen 650 mg 03/25/22 15:19 Acetaminophen Tab 325 Mg Tab PO 04/24/22 15:20 Q6HR PRN Mild Pain Atorvastatin Calcium 40 mg 03/25/22 21:00 Atorvastatin 40 Mg Tab PO 04/24/22 21:01 HS GLORIA Clopidogrel Bisulfate 75 mg 03/26/22 09:00 Clopidogrel 75 Mg Tab PO 04/25/22 09:01 DAILY [facility] Sodium Chloride 1,000 mls @ 20 mls/hr 03/25/22 06:02 Saline 0.9% IV 04/24/22 06:03 .Q24H [facility] Isosorbide Mononitrate 30 mg 03/26/22 09:00 Isosorbide Mononitrate Er 30 Mg Tab.Er.24h PO 04/25/22 09:01 DAILY [facility] Levetiracetam 500 mg 03/25/22 21:00 Levetiracetam 500 Mg Tab PO 04/24/22 21:01 BID [facility] Lisinopril 10 mg 03/25/22 21:00 Lisinopril 10 Mg Tab PO 04/24/22 21:01 BID [facility] Rivaroxaban 20 mg 03/25/22 21:00 Rivaroxaban 20 Mg Tab PO 04/24/22 21:01 HS [facility] Protocol Sodium Chloride 12 ml 03/25/22 15:19 Sodium Chloride 0.9% Flush 10 Ml Syringe IV 04/24/22 15:20 Q12HR PRN Line Flush Tamsulosin HCl 0.4 mg 03/25/22 21:00 Tamsulosin 0.4 Mg Cap.Er.24h PO 04/24/22 21:01 HS [facility] Intake and Output 03/25/22 03/25/22 03/25/22 06:59 14:59 22:59 Intake Total 671 0 Balance 671 0 Intake: IV 671 0 Other: Weight 77.8 kg Patient Weight 03/26/22 06:59 Weight 77.8 kg 03/25/22 10:22 03/25/22 10:22
--- NOTE | 2022-03-25 16:01 | P.PRLE ---
RE: Frederick Read Dear Dr. Murali Read underwent successful pulmonary vein isolation for management of paroxysmal atrial fibrillation 9 intracardiac echo revealed evidence of chronic pericarditis, healed This would contribute to the increased frequency of his A. fib episodes He'll continue his anticoagulation and other cardiac medications as before Thank you for entrusting me with the care of the patient Warm regards Sincerely Srini Ocampo
[2022-03-25] MEDS ORDERED: ACETAMINOPHEN IV (For NPO) 1,000 MG/100 ML VIAL IVPB ONE (16:23)
[2022-03-25] MEDS ORDERED: SODIUM CHLORIDE 0.9% 1,000 ML IV ONE (16:37)
[2022-03-25] MEDS: SODIUM CHLORIDE 0.9% 1,000 ML IV SCH (19:46)
[2022-03-25] MEDS: lisinopriL 10 MG TAB PO SCH (20:21)
[2022-03-25] MEDS: levETIRAcetam 500 MG TAB PO SCH (20:21)
[2022-03-25] MEDS ORDERED: RIVAROXABAN 20 MG TAB PO SCH (21:00)
[2022-03-25] MEDS ORDERED: ATORVASTATIN 40 MG TAB PO SCH (21:00)
[2022-03-25] MEDS ORDERED: TAMSULOSIN 0.4 MG CAP.ER.24H PO SCH (21:00)
[2022-03-25] MEDS: ACETAMINOPHEN TAB 325 MG TAB PO PRN (21:37)
[2022-03-26] MEDS: ACETAMINOPHEN TAB 325 MG TAB PO PRN (03:45)
[2022-03-26] MEDS: SODIUM CHLORIDE 0.9% 1,000 ML IV SCH (05:20)
[2022-03-26 07:18] VITALS: RESP 18
[2022-03-26] MEDS: levETIRAcetam 500 MG TAB PO SCH (07:50)
[2022-03-26] MEDS: lisinopriL 10 MG TAB PO SCH (07:50)
--- NOTE | 2022-03-26 08:07 | P.DS ---
Providers Attending physician: Srini Ocampo Primary care physician: [facility] Course: Patient is doing well from a chronic standpoint No chest discomfort or dizziness He has some oozing from the incision site but there is absolutely no hematoma at all in either groin On examination Normal heart sounds regular no murmurs or gallops or rub Breath sounds are clear Abdomen soft Afebrile, blood pressure 133/75 mmHg pulse rate in the 60s Twelve-lead EKG shows sinus rhythm normal NC narrow QRS normal ST segments and occasional PVCs Impression Paroxysmal atrial fibrillation Status post pulmonary vein isolation, successful Sick sinus Hold metoprolol until seen by Dr. Brumfield Plan - Discharge Summary Discharge Rx Participant: Yes New Discharge Prescriptions: No Action Isosorbide Mononitrate ER [Imdur] 30 mg PO DAILY Benazepril HCl 10 mg PO BID Atorvastatin [Lipitor] 40 mg PO HS Multivit-Min/FA/Lycopen/Lutein [Centrum Silver Tablet] 1 tab PO Q48H Tamsulosin HCl [Flomax] 0.4 mg PO HS Cholecalciferol [Vitamin D3 (25 Mcg = 1000 Iu)] 25 mcg PO DAILY Clopidogrel [Plavix] 75 mg PO DAILY #90 tab Rivaroxaban [Xarelto] 15 mg PO HS levETIRAcetam [Keppra] 500 mg PO BID [place]-3 Fatty Acids [[place]-3] 1,000 mg PO DAILY Metoprolol Tartrate [Lopressor] 25 mg PO BID Naproxen Sodium [Aleve] 220 mg PO DIRECTED PRN PRN Reason: Pain Magnesium Chloride [Slow-Mag] 286 mg PO HS Discharge Medication List Atorvastatin [Lipitor] 40 mg PO HS 01/24/18 [History] Benazepril HCl 10 mg PO BID 01/24/18 [History] Isosorbide Mononitrate ER [Imdur] 30 mg PO DAILY 01/24/18 [History] Multivit-Min/FA/Lycopen/Lutein [Centrum Silver Tablet] 1 tab PO Q48H 07/18/18 [History] Tamsulosin HCl [Flomax] 0.4 mg PO HS 11/22/21 [History] levETIRAcetam [Keppra] 500 mg PO BID 11/22/21 [History] Cholecalciferol [Vitamin D3 (25 Mcg = 1000 Iu)] 25 mcg PO DAILY 12/03/21 [History] [place]-3 Fatty Acids [[place]-3] 1,000 mg PO DAILY 12/03/21 [History] Clopidogrel [Plavix] 75 mg PO DAILY #90 tab 12/04/21 [Rx] Magnesium Chloride [Slow-Mag] 286 mg PO HS 03/24/22 [History] Metoprolol Tartrate [Lopressor] 25 mg PO BID 03/24/22 [History] Naproxen Sodium [Aleve] 220 mg PO DIRECTED PRN 03/24/22 [History] Rivaroxaban [Xarelto] 15 mg PO HS 03/24/22 [History]
[2022-03-26] MEDS ORDERED: ISOSORBIDE MONONITRATE ER 30 MG TAB.ER.24H PO SCH (09:00)
[2022-03-26] MEDS ORDERED: CLOPIDOGREL 75 MG TAB PO SCH (09:00)
[2022-03-26] MEDS ORDERED: SODIUM CHLORIDE 0.9% 500 ML 500 ML IV ONE (12:26)
[2022-03-26 13:52] VITALS: BP 98/60; PULSE 63; TEMP 97.5
== END 2022-03-26 17:15 | disposition home or self-care (01) ==
LOC: CATHEP 09:41 → 6NMEDSUR 15:10 → CATHEP 03-26 15:15
PROVIDERS: ATTEND Internal Medicine Clinical Cardiac Electrophysiology
DX: I48.91 Unspecified atrial fibrillation (principal); I07.1 Rheumatic tricuspid insufficiency; Z20.822 Contact with and (suspected) exposure to COVID-19
CPT/HCPCS: 93656; 80048; 85025; 87635; C1894; C1769 ×3; C1760; C1730 ×2; C1759; C1893; C1733; C1766; J0330; J1644 ×2; J2405; J2001 ×2; J3010; J0131 ×2; J2704; Q9967

== ENCOUNTER 2022-06-13 05:49 | Day surgery (SDC) | payer MEDICARE ==
[2022-06-12 09:32] VITALS: BMI 27.2
[2022-06-13] MEDS ORDERED: SODIUM CHLORIDE 0.9% 500 ML 500 ML IV ONE (06:10)
[2022-06-13] MEDS ORDERED: SODIUM CHLORIDE 0.9% 1,000 ML IV SCH ×2 (06:12→07:45)
[2022-06-13 06:59] VITALS: RESP 16
[2022-06-13 07:10] VITALS: TEMP 98
[2022-06-13] MEDS ORDERED: PHENYLEPHRINE-0.9% NACL SYG 1,000 MCG/10 ML SYRINGE ONE (07:24)
[2022-06-13] MEDS ORDERED: PROPOFOL 10 MG/ML 20 ML VIAL IV ONE (07:24)
[2022-06-13] MEDS ORDERED: LIDOCAINE 2% INJ 20 MG/ML (2 ML VIAL) ONE (07:24)
--- NOTE | 2022-06-13 07:43 | P.PCN ---
Date of Procedure: 06/13/22 Description of Procedure: Indication: Evaluation of left atrial appendage Procedure Description: After explaining the procedure to the patient, it's risk and complications, blood pressure, heart rate and O2 saturation were monitored. The throat was sprayed with Cetacaine. Patient received sedation per anesthesia department. The probe was introduced into the esophagus without difficulty. Images were obtained. Following that, the probe was removed. There was no immediate complication. Findings: Left atrial size is mildly dilated, normal appearance of the left atrial appendage, left ventricle size is normal with mild global hypokinesis, ejection fraction is estimated at 45-50%. The aortic valve revealed mild fibrocalcific changes of the aortic cusps was preserved opening, mitral valve revealed mild thickening of the leaflets, tricuspid valve is normal, descending thoracic aorta is normal. No pericardial effusion was noted. Contrast bubble study reveals no shunting across the intra-atrial septum. Doppler: Pulse wave and color Doppler were obtained, moderate multiple jets mitral regurgitation was mild aortic and tricuspid regurgitation there was no shunting across the intra-atrial septum. Conclusion: 1. Mildly dilated left atrium with normal appearance of the left atrial appendage 2. Normal left ventricular size with mild global hypokinesis 3. And moderate mitral regurgitation was mild mitral and tricuspid regurgitation 4. No pericardial effusion 5. No shunting across the intra-atrial septum
--- NOTE | 2022-06-13 07:44 | P.PCN ---
Date of Procedure: 06/13/22 Description of Procedure: Cardioversion Indication: Atrial flutter After explaining the procedure to the patient, his blood pressure, heart rate and O2 saturation were monitored. After obtaining sedated state for anesthesia department and performing he synchronized biphasic cardioversion using 150 J was performed with latter-day of sinus mechanism. Patient had multiple PACs and PVCs. There was no immediate complications.
--- NOTE | 2022-06-13 07:44 | P.PCN ---
Date of Procedure: 06/13/22 Description of Procedure: Cardioversion Indication: Atrial flutter After explaining the procedure to the patient, his blood pressure, heart rate and O2 saturation were monitored. After obtaining sedated state for anesthesia department and performing he synchronized biphasic cardioversion using 150 J was performed with christianity of sinus mechanism. Patient had multiple PACs and PVCs. There was no immediate complications.
[2022-06-13] MEDS ORDERED: ISOSORBIDE MONONITRATE ER 30 MG TAB.ER.24H PO SCH (09:00)
[2022-06-13] MEDS ORDERED: levETIRAcetam 500 MG TAB PO SCH (09:00)
[2022-06-13] MEDS ORDERED: BENAZEPRIL HCL 10 MG PO SCH (09:00)
[2022-06-13] MEDS ORDERED: CLOPIDOGREL 75 MG TAB PO SCH (09:00)
[2022-06-13 10:31] VITALS: BP 101/66; PULSE 59
[2022-06-13] MEDS ORDERED: ATORVASTATIN 40 MG TAB PO SCH (21:00)
[2022-06-13] MEDS ORDERED: MAGNESIUM CHLORIDE 64 MG PO SCH (21:00)
[2022-06-13] MEDS ORDERED: RIVAROXABAN 15 MG TAB PO SCH (21:00)
[2022-06-13] MEDS ORDERED: TAMSULOSIN 0.4 MG CAP.ER.24H PO SCH (21:00)
== END 2022-06-13 10:18 | disposition home or self-care (01) ==
LOC: CATHCVL 05:49
PROVIDERS: ATTEND Internal Medicine Interventional Cardiology
DX: I48.3 Typical atrial flutter (principal); I08.1 Rheumatic disorders of both mitral and tricuspid valves; I25.10 Atherosclerotic heart disease of native coronary artery without angina pectoris; I10 Essential (primary) hypertension; E78.2 Mixed hyperlipidemia; Z79.899 Other long term (current) drug therapy; Z79.01 Long term (current) use of anticoagulants; Z79.02 Long term (current) use of antithrombotics/antiplatelets
CPT/HCPCS: 93312; 93320; 93325; 92960; J2370; J2704; J2001

== ENCOUNTER 2022-09-10 06:06 | Day surgery (SDC) | payer MEDICARE ==
[~2022-09-10 06:06] MED LIST changes: -DEXAMETHASONE SOD PHOSPHATE 10 MG/ML 1 ML VIAL IV ONE; -LACTATED RINGERS 1,000 ML IV SCH; -LIDOCAINE 1% 20 ML VIAL (10MG/ML) FOR IV START INTRADERMA PRN; -ONDANSETRON 4 MG/2 ML VIAL IVP ONE; +SODIUM CHLORIDE 0.9% 1,000 ML IV SCH; -ceFAZolin 1,000 MG in DEXTROSE/WATER 1 50ML.BAG IV ONE
[2022-09-10 06:50] VITALS: TEMP 98
[2022-09-10 07:03] LABS: African American GFR (CKD) >90 (>60 ml/min/1.73 sqM); Anion Gap 7 mmol/L; Blood Urea Nitrogen 16 mg/dL (9-20); Calcium 8.8 mg/dL (8.4-10.2); Carbon Dioxide 25 mmol/L (22-30); Chloride 107 mmol/L (98-107); Glucose 110 mg/dL (74-99); Non-African American GFR(CKD) 83 (>60 ml/min/1.73 sqM); Potassium 4.3 mmol/L (3.5-5.1); Sodium 139 mmol/L (137-145)
[2022-09-10] MEDS ORDERED: PROPOFOL 10 MG/ML 20 ML VIAL IV ONE (07:40)
[2022-09-10] MEDS ORDERED: PHENYLEPHRINE-0.9% NACL SYG 1,000 MCG/10 ML SYRINGE ONE (07:40)
--- NOTE | 2022-09-10 07:51 | P.PCN ---
Date of Procedure: 09/10/22 Description of Procedure: Cardioversion Indication: Atrial flutterfibrillation Procedure: After explaining the procedure to the patient as well as the risks and the complications, his blood pressure, heart rate and O2 saturations were monitored. He received sedation per anesthesia department. A synchronize biphasic cardioversion using 150 J was performed with temple of sinus mechanism, there was no immediate complications.
[2022-09-10] MEDS ORDERED: SODIUM CHLORIDE 0.9% 1,000 ML IV SCH (08:00)
[2022-09-10] MEDS ORDERED: SODIUM CHLORIDE 0.9% 1,000 ML IV ONE (08:05)
[2022-09-10 08:32] VITALS: RESP 16
[2022-09-10] MEDS ORDERED: CHOLECALCIFEROL 25 MCG (1000 IU) TABLET PO SCH (09:00)
[2022-09-10 09:34] VITALS: PULSE 59
[2022-09-10 09:52] VITALS: BP 97/62
[2022-09-10] MEDS ORDERED: levETIRAcetam 500 MG TAB PO SCH (21:00)
[2022-09-10] MEDS ORDERED: METOPROLOL TARTRATE 25 MG TAB PO SCH (21:00)
[2022-09-10] MEDS ORDERED: ATORVASTATIN 40 MG TAB PO SCH (21:00)
[2022-09-10] MEDS ORDERED: RIVAROXABAN 15 MG TAB PO SCH (21:00)
[2022-09-10] MEDS ORDERED: TAMSULOSIN 0.4 MG CAP.ER.24H PO SCH (21:00)
[2022-09-11] MEDS ORDERED: lisinopriL 20 MG TAB PO SCH (09:00)
[2022-09-11] MEDS ORDERED: CLOPIDOGREL 75 MG TAB PO SCH (09:00)
[2022-09-11] MEDS ORDERED: AMIODARONE 200 MG TAB PO SCH (09:00)
[2022-09-11] MEDS ORDERED: ISOSORBIDE MONONITRATE ER 30 MG TAB.ER.24H PO SCH (09:00)
== END 2022-09-10 09:59 | disposition home or self-care (01) ==
LOC: CATHCVL 06:06
PROVIDERS: ATTEND Internal Medicine Interventional Cardiology
DX: I48.92 Unspecified atrial flutter (principal); I48.91 Unspecified atrial fibrillation; I25.10 Atherosclerotic heart disease of native coronary artery without angina pectoris; I10 Essential (primary) hypertension; E78.00 Pure hypercholesterolemia, unspecified; I25.2 Old myocardial infarction; Z87.891 Personal history of nicotine dependence; E78.2 Mixed hyperlipidemia; R56.9 Unspecified convulsions; Z79.51 Long term (current) use of inhaled steroids; Z79.82 Long term (current) use of aspirin; Z79.02 Long term (current) use of antithrombotics/antiplatelets; Z95.5 Presence of coronary angioplasty implant and graft; Z88.8 Allergy status to other drugs, medicaments and biological substances
CPT/HCPCS: 92960; 80048; J2370; J2704

== ENCOUNTER 2023-12-24 05:37 | Day surgery (SDC) | payer MEDICARE ==
[2023-12-22 15:44] VITALS: BMI 27.9
[2023-12-24] MEDS ORDERED: LACTATED RINGERS 1,000 ML IV SCH (05:57)
[2023-12-24] MEDS: SODIUM CHLORIDE 0.9% 1,000 ML IV SCH (06:18)
[2023-12-24 07:07] VITALS: TEMP 97
[2023-12-24] MEDS ORDERED: PROPOFOL 10 MG/ML 20 ML VIAL IV ONE (07:13)
[2023-12-24] MEDS: BENZOCAINE SPRAY 1 CAN TOPICAL ONE (07:13)
[2023-12-24] MEDS ORDERED: LIDOCAINE 1% INJ 10MG/ML (20 ML MDV) ONE (07:13)
[2023-12-24 07:29] LABS: African American GFR (CKD) >90 (>60 ml/min/1.73 sqM); Anion Gap 8 mmol/L; Blood Urea Nitrogen 17 mg/dL (9-20); Calcium 8.7 mg/dL (8.4-10.2); Carbon Dioxide 21 mmol/L (22-30); Chloride 111 mmol/L (98-107); Glucose 104 mg/dL (74-99); Non-African American GFR(CKD) >90 (>60 ml/min/1.73 sqM); Sodium 140 mmol/L (137-145)
--- NOTE | 2023-12-24 07:41 | P.PCN ---
Date of Procedure: 12/24/23 Description of Procedure: Indication: Atrial fibrillation Procedure Description: After explaining the procedure to the patient, it's risk and complications, blood pressure, heart rate and O2 saturation were monitored. The throat was sprayed with Cetacaine. Patient received sedation per anesthesia department. The probe was introduced into the esophagus without difficulty. Images were obtained. Following that, the probe was removed. There was no immediate complication. Findings: Left atrial size is moderately dilated, left atrial appendage is normal. There is mild global hypokinesis of the left with an ejection fraction of 45 to 50%. The aortic valve appears to be normal. Mitral annulus calcification was noted. The tricuspid and pulmonic valve appeared to be normal. Descending thoracic aorta appears to be normal. No pericardial effusion was noted. There was no shunting by contrast bubble study. Doppler: Pulse wave and color Doppler were obtained, and revealed moderate mitral regurgitation with mild to moderate aortic and mild tricuspid regurgitation. There was no shunting by color Doppler study. Conclusion: 1. Dilated left atrium with normal appearance of the left atrial appendage 2. Mild global hypokinesis of the left ventricle 3. Moderate mitral with mild to moderate aortic and mild tricuspid regurgitation 4. No shunting across the interatrial septum 5. Normal appearance of the descending thoracic aorta Cardioversion: After obtaining YVONNE and obtaining sedated state a synchronized biphasic cardioversion using 150 J was performed with congregational of sinus mechanism, there was no immediate complication.
[2023-12-24 07:50] LABS: Potassium 4.9 mmol/L (3.5-5.1)
[2023-12-24 08:42] VITALS: RESP 18
[2023-12-24] MEDS ORDERED: levETIRAcetam 500 MG TAB PO SCH (09:00)
[2023-12-24] MEDS ORDERED: METOPROLOL TARTRATE 25 MG TAB PO SCH (09:00)
[2023-12-24] MEDS ORDERED: BENAZEPRIL HCL 10 MG PO SCH (09:00)
[2023-12-24] MEDS ORDERED: RIVAROXABAN 20 MG TAB PO SCH (09:00)
[2023-12-24] MEDS ORDERED: ISOSORBIDE MONONITRATE ER 30 MG TAB.ER.24H PO SCH (09:00)
[2023-12-24 10:11] VITALS: BP 111/72; PULSE 61
[2023-12-24] MEDS ORDERED: ATORVASTATIN 40 MG TAB PO SCH (21:00)
[2023-12-24] MEDS ORDERED: NON FORMULARY DRUG (Aspirin [Adult Low Dose Aspirin Ec] 81 MG Tablet) PO SCH (21:00)
== END 2023-12-24 09:51 | disposition home or self-care (01) ==
LOC: OR 05:37
PROVIDERS: ATTEND Internal Medicine Interventional Cardiology
DX: I08.1 Rheumatic disorders of both mitral and tricuspid valves (principal); I48.91 Unspecified atrial fibrillation; I25.10 Atherosclerotic heart disease of native coronary artery without angina pectoris; E78.5 Hyperlipidemia, unspecified; Z79.01 Long term (current) use of anticoagulants; Z79.899 Other long term (current) drug therapy
CPT/HCPCS: 93312; 93320; 93325; 92960; 80048; J2001; J2704

== ENCOUNTER → 2024-03-08 | Outpatient (CLI) | payer MEDICARE ==
[2024-03-08 17:29] LABS: Blood Urea Nitrogen 16.7 mg/dL (9.0-27.0); Carbon Dioxide 23.3 mmol/L (21.6-31.8); Chloride 105 mmol/L (96-109); Potassium 4.7 mmol/L (3.5-5.5); Sodium 139 mmol/L (135-145)
[2024-03-08 17:45] LABS: HCT 47.3 % (39.6-50.0); MCH 29.8 pg (27.0-32.0); MCHC 31.7 g/dL (32.0-37.0); MCV 93.8 FL (80.0-97.0); Mean Platelet Volume 11.5 FL (9.5-12.2); NRBC Per 100 WBC 0 X 10*3/uL (0.00-0.01); Platelet Count 222 X 10*3/uL (140-440); RBC 5.04 X 10*6/uL (4.40-5.60); RDW 13.2 % (11.5-14.5); WBC 9.48 X 10*3/uL (4.50-10.00)
== END | disposition home or self-care (01) ==
LOC: LABPAT 07:44
PROVIDERS: ATTEND Internal Medicine Clinical Cardiac Electrophysiology
DX: Z01.812 Encounter for preprocedural laboratory examination (principal); I48.19 Other persistent atrial fibrillation
CPT/HCPCS: 36415; 80051; 82565; 84520; 85027

== ENCOUNTER 2024-03-15 09:22 | Day surgery (SDC) | payer MEDICARE ==
[2024-03-15] MEDS: IV FLUID CONTINUATION 1,000 ML IV ONE (10:00)
[2024-03-15 10:22] LABS: ALT 20 U/L (4-49); AST 28 U/L (17-59); African American GFR (CKD) >90 (>60 ml/min/1.73 sqM); Albumin 4.4 g/dL (3.5-5.0); Alkaline Phosphatase 114 U/L (38-126); Anion Gap 9 mmol/L; Blood Urea Nitrogen 14 mg/dL (9-20); Calcium 9.2 mg/dL (8.4-10.2); Carbon Dioxide 23 mmol/L (22-30); Chloride 108 mmol/L (98-107); Glucose 98 mg/dL (74-99); Non-African American GFR(CKD) >90 (>60 ml/min/1.73 sqM); Potassium 4.3 mmol/L (3.5-5.1); Sodium 140 mmol/L (137-145); Total Bilirubin 0.9 mg/dL (0.2-1.3); Total Protein 7.3 g/dL (6.3-8.2)
[2024-03-15] MEDS ORDERED: LIDOCAINE 1% INJ 10MG/ML (20 ML MDV) ONE ×2 (12:05→12:07)
[2024-03-15] MEDS ORDERED: PROPOFOL 10 MG/ML 20 ML VIAL IV ONE (12:07)
[2024-03-15] MEDS ORDERED: SUCCINYLCHOLINE CHLORIDE 200 MG/10 ML VIAL IV ONE (12:07)
[2024-03-15] MEDS ORDERED: MIDAZOLAM 2 MG/2 ML VIAL ONE (12:07)
[2024-03-15] MEDS ORDERED: HEPARIN SODIUM,PORCINE 10,000 UNIT/ML 1 ML VIAL ONE (12:07)
[2024-03-15] MEDS ORDERED: fentaNYL (PF) 50 MCG/ML 2 ML AMP ONE (12:07)
[2024-03-15] MEDS: HEPARIN SOD,PORK IN 0.45% NACL 25,000 UNIT in 0.45% NACL 1 250ML.BAG IV ONE (12:35)
[2024-03-15] MEDS: HEPARIN SODIUM,PORCINE 10,000 UNIT in SODIUM CHLORIDE 0.9% 1,000 ML IRRIGATION ONE (12:39)
[2024-03-15] MEDS: HEPARIN SODIUM (1,000 UNIT/ML) 1,000 UNIT in SODIUM CHLORIDE 0.9% 1,000 ML IRRIGATION ONE (12:39)
[2024-03-15] MEDS: LIDOCAINE 1% INJ 10MG/ML (20 ML MDV) SQ ONE (12:43)
[2024-03-15] MEDS ORDERED: BACLOFEN 10 MG TAB PO PRN (15:04)
[2024-03-15] MEDS ORDERED: lisinopriL 10 MG TAB PO PRN (15:04)
[2024-03-15] MEDS ORDERED: ACETAMINOPHEN TAB 325 MG TAB PO PRN (15:06)
--- NOTE | 2024-03-15 15:14 | P.HPCAR ---
History of Present Illness This is Dr. Ocampo dictating an H/P on this patient The patient was interviewed and examined IMPRESSION / ASSESSMENT: Persistent atrial tachycardia, atrial cycle length of about 240 ms Upright flutter waves in V1 and upright in the inferior leads biphasic in lead I Mildly reduced left ventricular ejection fraction 47% History of pulmonary vein isolation in 2021. He remained in sinus rhythm for about a year Subsequently had recurrence of atrial tachycardia. Underwent electrical cardioversion followed by recurrence Very symptomatic with this with tiredness fatigue shortness of breath and occasionally dizziness and lightheadedness PLAN: Diagnostic EP study and radiofrequency ablation for atrial tachycardia Continue Xarelto Readjust dose of beta-blockers once in sinus rhythm HPI Patient continues to experience tiredness fatigue shortness of breath and occasional dizziness and lightheadedness Despite adequate rate control he remains symptomatic with underlying atrial tachycardia He has had a history of A-fib ablation with PVI. At that exudative pericarditis was noted ROS: No fever chills or rigors, no cough, phlegm or expectoration, no nausea, vomiting or diarrhea, no hematuria, dysuria, no musculoskeletal complaints, no strokes or seizures, no skin lesions. EXAMINATION: Afebrile pulse rate 70s and 80s Blood pressure 139/79 mmHg afebrile Irregular rhythm no murmurs Breath sounds are clear no rhonchi no crackles Abdomen soft Extremities warm no edema No JVD REVIEW OF LABS, ECG & MEDICAL DATA Sodium 140, potassium 4.3 BUN 14 creatinine 0.67 Normal AST and ALT TSH 1.7 Physical Exam Vitals: Vital Signs Temp Pulse Resp BP Pulse Ox 03/15/24 10:04 98.0 F 72 16 139/79 96 Intake and Output 03/15/24 03/15/24 03/15/24 06:59 14:59 22:59 Intake Total 1405 Balance 1405 Intake: IV 1405 Other: Weight 76.3 kg Past Medical History Past Medical History: Atrial Fibrillation, Atrial Flutter, Coronary Artery Disease (CAD), Cancer, Hearing Disorder / Deafness, Hyperlipidemia, Hypertension, Myocardial Infarction ([place]), Osteoarthritis ([place]), Prostate Disorder, Seizure Disorder Additional Past Medical History / Comment(s): See Dr Ocampo's H&P. Hard of hearing, has hearing aids but doesn't wear them. Hx subdural hematoma from seizure and fall. Hx seiziure in 2009, none since. BPH. Hx skin cancer. Severe back pain/sore joints. bruises easy. Last Myocardial Infarction Date:: 2002 History of Any Multi-Drug Resistant Organisms: None Reported Past Surgical History: Appendectomy, Cardiac Ablation, Heart Catheterization With Stent, Hernia Repair, Joint Replacement, Orthopedic Surgery, Tonsillectomy Additional Past Surgical History / Comment(s): Rotator cuff repair X2, right knee arthroscopies/steroid injection to right knee, heart caths with stents 05/08/2003, 02/22/2014 & 12/04/21, pain injections in back, left knee replacement, right shoulder corstisone injection, cancerous mole removed from back, jeison cataracts removed. cardioversion x3. Past Anesthesia/Blood Transfusion Reactions: No Reported Reaction Date of Last Stent Placement:: 12/04/21 Smoking Status: Former smoker - Past Family History Mother Family Medical History: No Reported History Father Family Medical History: Coronary Artery Disease (CAD) Physical Examination Vital Signs Temp Pulse Resp BP Pulse Ox 03/15/24 10:04 98.0 F 72 16 139/79 96 Intake and Output 03/15/24 03/15/24 03/15/24 06:59 14:59 22:59 Intake Total 1405 Balance 1405 Intake: IV 1405 Other: Weight 76.3 kg Results 03/15/24 09:51 Cardiac Enzymes 03/15/24 Range/Units 09:51 AST 28 (17-59) U/L Comprehensive Metabolic Panel 03/15/24 Range/Units 09:51 Sodium 140 (137-145) mmol/L Potassium 4.3 (3.5-5.1) mmol/L Chloride 108 H (98-107) mmol/L Carbon Dioxide 23 (22-30) mmol/L BUN 14 (9-20) mg/dL Creatinine 0.67 (0.66-1.25) mg/dL Glucose 98 (74-99) mg/dL Calcium 9.2 (8.4-10.2) mg/dL AST 28 (17-59) U/L ALT 20 (4-49) U/L Alkaline Phosphatase 114 (38-126) U/L Total Protein 7.3 (6.3-8.2) g/dL Albumin 4.4 (3.5-5.0) g/dL Current Medications Generic Name Dose Route Start Last Admin Trade Name Freq PRN Reason Stop Dose Admin Acetaminophen 650 mg 03/15/24 15:06 Acetaminophen Tab 325 Mg Tab PO 04/14/24 15:05 Q6HR PRN Mild Pain (Scale 1 to 3) Atorvastatin Calcium 40 mg 03/15/24 21:00 Atorvastatin 40 Mg Tab PO 04/14/24 20:59 HS GLORIA Baclofen 10 mg 03/15/24 15:04 Baclofen 10 Mg Tab PO 04/14/24 15:03 Q6H PRN Pain Sodium Chloride 1,000 mls @ 20 mls/hr 03/15/24 05:58 Saline 0.9% IV 04/14/24 05:57 .Q24H GLORIA Acetaminophen 1,000 mg/ IV 100 mls @ 400 mls/hr 03/15/24 15:06 Solution IVPB 03/15/24 15:20 ONCE ONE Isosorbide Mononitrate 30 mg 03/16/24 09:00 Isosorbide Mononitrate Er 30 Mg Tab.Er.24h PO 04/15/24 08:59 QAM GLORIA Levetiracetam 500 mg 03/15/24 21:00 Levetiracetam 500 Mg Tab PO 04/14/24 20:59 BID GLORIA Metoprolol Tartrate 25 mg 03/16/24 09:00 Metoprolol Tartrate 50 Mg Tab PO 04/15/24 08:59 BID GLORIA Non-Formulary Medication 81 mg 03/15/24 21:00 Aspirin [Adult Low Dose Aspirin Ec] PO 04/14/24 20:59 HS GLORIA Non-Formulary Medication 10 mg 03/15/24 15:04 Benazepril Hcl [Benazepril Hcl] PO DAILY PRN Hypertension Non-Formulary Medication 286 mg 03/15/24 21:00 Magnesium Chloride PO 04/14/24 20:59 HS GLORIA Rivaroxaban 20 mg 03/15/24 21:00 Rivaroxaban 20 Mg Tab PO 04/14/24 20:59 HS [facility] Protocol Sodium Chloride 12 ml 03/15/24 15:06 Sodium Chloride 0.9% Flush 10 Ml Syringe IV 04/14/24 15:05 Q12HR PRN Line Flush Tamsulosin HCl 0.4 mg 03/15/24 21:00 Tamsulosin 0.4 Mg Cap.Er.24h PO 04/14/24 20:59 HS GLORIA Intake and Output 03/15/24 03/15/24 03/15/24 06:59 14:59 22:59 Intake Total 1405 Balance 1405 Intake: IV 1405 Other: Weight 76.3 kg Patient Weight 03/16/24 06:59 Weight 76.3 kg 03/15/24 09:51
--- NOTE | 2024-03-15 15:24 | P.EPPROC ---
- EP Procedure Note Electrophysiology Procedure Note: Diagnosis Atrial tachycardia cycle length 240 ms persistent and symptomatic Status post PVI in 2021 History of exudative pericarditis Associated cardiomyopathy left ventricular ejection fraction equals 47% Final diagnosis Counterclockwise mitral reentry, status post successful ablation Scar in the anterior roof with an anatomical gap, status post successful ablation AH interval 120 ms, HV interval 33 ms RA pressure 12/6/9, LA pressure was 21/6/13 mmHg Details Patient was brought to the EP lab in a fasting state. Written informed consent was obtained prior to the procedure. The right left groins were prepped and draped as a protocol and venous sheaths were placed Intracardiac echo catheter was placed Coronary sinus catheter revealed concentric activation of the atrial tachycardia. Atrial cycle length 240 ms A somewhat thickened fossa ovalis was noted, no left atrial appendage thrombus Left and right transseptal catheterization was performed RA pressure 12/6/9 mmHg, LA pressure 21/6/13 mmHg Deflectable sheath was placed in the left atrium A Penta ray catheter was first used for electroanatomic mapping Activation mapping revealed counterclockwise activation around the mitral annulus with a functional gap as well as likely functional block on the anterior mitral wall Scar mapping revealed completely quiescent pulmonary veins Scar was noted in the anterior LA wall along the anterior roof but within anatomic. The patient had not had a left atrial roofline at the first ablation in 2021. Only a PVI was done at that time Indication there was patchy scar along the anterior wall. This scar corresponded to the areas of block along the anterior wall of the LA First and anterior roofline ablation was performed to complete the anatomic gap. Successful ablation was performed at the site Following that an anterior mitral isthmus line was performed along the areas of scar. At the site of the functional isthmus, a single RF lesion resulted in termination of the tachycardia Subsequently a complete line of block was made and this was tested with differential pacing. Differential pacing showed complete block along the line Heparin was discontinued The AH interval was 120 ms, HV interval was 33 ms Venous sheaths were removed. Vascade closure device applied Patient extubated and transferred to recovery transferred to
[2024-03-15] MEDS: SODIUM CHLORIDE 0.9% 1,000 ML IV SCH (16:25)
[2024-03-15] MEDS: MAGNESIUM OXIDE 400 MG TAB PO SCH (20:12)
[2024-03-15] MEDS: ATORVASTATIN 40 MG TAB PO SCH (20:12)
[2024-03-15] MEDS: levETIRAcetam 500 MG TAB PO SCH (20:12)
[2024-03-15] MEDS: TAMSULOSIN 0.4 MG CAP.ER.24H PO SCH (20:12)
[2024-03-15] MEDS: ASPIRIN 81 MG PO SCH (20:48)
[2024-03-15] MEDS: RIVAROXABAN 20 MG TAB PO SCH (23:12)
[2024-03-16] MEDS: ACETAMINOPHEN IV (For NPO) 1,000 MG in EMPTY BAG 1 BAG IVPB ONE (01:05)
[2024-03-16 07:22] VITALS: BP 136/77; PULSE 59; RESP 17; TEMP 98.1
[2024-03-16] MEDS: ISOSORBIDE MONONITRATE ER 30 MG TAB.ER.24H PO SCH (09:44)
[2024-03-16] MEDS: METOPROLOL TARTRATE 25 MG TAB PO SCH (09:44)
--- NOTE | 2024-03-16 10:08 | P.DS ---
Providers Date of admission: 03/15/24 Attending physician: Srini Ocampo Primary care physician: [facility] Course: The patient is an 79-year-old male who follows in the office with Dr. Brumfield. The patient has a known history of atrial fibrillation and underwent pulmonary vein isolation in 2021. He has since had recurrent atrial tachycardia and therefore underwent cryoablation for counterclockwise mitral reentry and anterior roof ablation. Patient tolerated the procedure well. He states he did well overnight and had no difficulty breathing and was able to lie flat. No chest discomfort. Minimal sore throat. GENERAL: Well-appearing, well-nourished and in no acute distress. NECK: Supple without JVD or thyromegaly. LUNGS: Breath sounds clear to auscultation bilaterally. Respiration equal and unlabored. No wheezes, rales or rhonchi. HEART: Regular rate and rhythm without murmurs, rubs or gallops. S1 and S2 heard. EXTREMITIES: Normal range of motion, no edema. No clubbing or cyanosis. Peripheral pulses intact and strong. Bruising noted in right groin, quarter size. Small amount of oozing noted after stitch removal. Left groin site clean dry and intact. TELEMETRY: Sinus rhythm overnight IMPRESSION: Symptomatic atrial tachycardia Status post cryoablation History of atrial fibrillation with prior PVI PLAN: Reduce metoprolol to 25 mg in the morning and p.m. Patient may be discharged by noon Follow-up with Dr. Brumfield in 1 week I am dictating on behalf of Dr Srini Ocampo's history/physical and assessment/plan. Plan - Discharge Summary Discharge Rx Participant: No New Discharge Prescriptions: New Metoprolol Tartrate 25 mg PO BID #90 tab Continue Isosorbide Mononitrate ER [Imdur] 30 mg PO QAM Benazepril HCl 10 mg PO DAILY PRN PRN Reason: Hypertension Atorvastatin [Lipitor] 40 mg PO HS Multivit-Min/FA/Lycopen/Lutein [Centrum Silver Tablet] 1 tab PO Q48H Tamsulosin HCl [Flomax] 0.4 mg PO HS Cholecalciferol [Vitamin D3 (25 Mcg = 1000 Iu)] 25 mcg PO QAM Rivaroxaban [Xarelto] 20 mg PO HS Baclofen 10 mg PO Q6H PRN PRN Reason: Pain levETIRAcetam [Keppra] 500 mg PO BID Magnesium Chloride [Slow-Mag] 286 mg PO HS Aspirin [Adult Low Dose Aspirin EC] 81 mg PO HS Discontinued Metoprolol Tartrate [Lopressor] 50 mg PO DAILY Metoprolol Tartrate 25 mg PO HS Discharge Medication List Atorvastatin [Lipitor] 40 mg PO HS 01/24/18 [History] Benazepril HCl 10 mg PO DAILY PRN 01/24/18 [History] Isosorbide Mononitrate ER [Imdur] 30 mg PO QAM 01/24/18 [History] Multivit-Min/FA/Lycopen/Lutein [Centrum Silver Tablet] 1 tab PO Q48H 07/18/18 [History] Tamsulosin HCl [Flomax] 0.4 mg PO HS 11/22/21 [History] levETIRAcetam [Keppra] 500 mg PO BID 11/22/21 [History] Cholecalciferol [Vitamin D3 (25 Mcg = 1000 Iu)] 25 mcg PO QAM 12/03/21 [History] Magnesium Chloride [Slow-Mag] 286 mg PO HS 03/24/22 [History] Aspirin [Adult Low Dose Aspirin EC] 81 mg PO HS 12/22/23 [History] Baclofen 10 mg PO Q6H PRN 12/22/23 [History] Rivaroxaban [Xarelto] 20 mg PO HS 12/22/23 [History] Metoprolol Tartrate 25 mg PO BID #90 tab 03/15/24 [Rx] Follow up Appointment(s)/Referral(s): Sary Brumfield MD [STAFF PHYSICIAN] - 1 Week Activity/Diet/Wound Care/Special Instructions: Post EP study - Ablation instructions 1. Keep access sites dry for 2 days. 2. No heavy lifting or straining for 2 days. 3. Avoid bending the hips repeatedly for 2 days. 4. You may go up and down stairs slowly Call if the following is noted 1. Bleeding, increasing swelling or pain at the access sites. 2. Increasing chest discomfort, especially upon taking a deep breath. 3. Increasing shortness of breath, at rest or with exertion. 4. Undue cough / phlegm 5. Difficulty or pain while swallowing. 6. Pain or change in color in the extremities. 7. Fever, chills, rigors. 8. Increasing headache or neurologic symptoms. 9. Dizziness, fainting, palpitations Reduce metoprolol to 25 mg twice daily Continue all other medications Continue Xarelto uninterrupted Discharge Disposition: HOME SELF-CARE
== END 2024-03-16 12:55 | disposition home or self-care (01) ==
LOC: CATHEP 09:22 → 6NMEDSUR 14:50 → CATHEP 03-16 12:55
PROVIDERS: ATTEND Internal Medicine Clinical Cardiac Electrophysiology
DX: I42.9 Cardiomyopathy, unspecified (principal); I48.91 Unspecified atrial fibrillation; E78.5 Hyperlipidemia, unspecified; G40.909 Epilepsy, unspecified, not intractable, without status epilepticus; Z87.891 Personal history of nicotine dependence; Z85.828 Personal history of other malignant neoplasm of skin
CPT/HCPCS: 93462; 93662; 93653; 93655; 86900; 86901; 80053; 84443; 86850; C1759; C1894; C1769 ×3; C1760; C1766; C1730; C1731; C1732; J1644 ×3; J2001

== ENCOUNTER → 2024-06-21 | Day surgery (SDC) | payer MEDICARE ==
[~2024-06-21] MED LIST changes: +LIDOCAINE 1% (10MG/ML) FOR IV START INTRADERMA PRN; +ONDANSETRON 4 MG/2 ML VIAL IVP PRN; +PROPOFOL 10 MG/ML 20 ML VIAL IV ONE; -SODIUM CHLORIDE 0.9% 1,000 ML IV SCH
[2024-06-21 11:02] VITALS: TEMP 97.6
[2024-06-21] MEDS: IV FLUID CONTINUATION 1,000 ML IV ONE ×2 (11:30→12:42)
--- NOTE | 2024-06-21 11:51 | P.PCN ---
Date of Procedure: 06/21/24 Procedure(s) Performed: BRIEF HISTORY: Patient is a 79-year-old pleasant white male scheduled for an elective colonoscopy as a part of evaluation of prior history of colon polyps. PROCEDURE PERFORMED: Incomplete colonoscopy PREOPERATIVE DIAGNOSIS: History of colon polyps. IV sedation per Anesthesia. PROCEDURE: After informed consent was obtained, the patient, was brought into the endoscopy unit. IV sedation was administered by Anesthesia under continuous monitoring. Digital rectal examination was normal. Initially the Olympus CF-160 flexible video colonoscope was then inserted in the rectum, gradually advanced into the distal sigmoid colon and further advancement was not possible because of acute angulation in this area. The scope was removed and a pediatric colonoscopy was then advised to the rectum and gradually advanced to the distal sigmoid colon despite multiple attempts and changing patient's position and abdominal pressure I was not able to advance the scope safely beyond the sigmoid colon. Scattered sigmoid diverticulosis seen. The distal, sigmoid colon, and rectum appeared normal. Retroflexion was performed in the rectum and no lesions were seen. The patient tolerated the procedure well. IMPRESSION: Scattered sigmoid diverticulosis. Incomplete colonoscopy up to the distal sigmoid colon and procedure terminated because of acute angulation in this area RECOMMENDATIONS: Findings of this examination were discussed with the patient as well as his family.. He will be scheduled for a double contrast barium enema today to evaluate the rest of the colon
[2024-06-21] MEDS: ePHEDrine 50 MG/ML 1 ML VIAL IVP ONE ×2 (12:20→12:33)
[2024-06-21] MEDS: LACTATED RINGERS 1,000 ML IV SCH (12:40)
[2024-06-21 13:00] VITALS: RESP 18
[2024-06-21 13:20] VITALS: BP 106/60; PULSE 110
--- NOTE | 2024-06-21 15:04 | FL ---
EXAMINATION TYPE: FL barium enema DATE OF EXAM: 06/21/2024 COMPARISON: CT 07/18/2018 HISTORY: 79-year-old male incomplete colonoscopy. Scope to the sigmoid colon. No biopsies. TECHNIQUE: A single contrast barium enema study is performed. A total of 21 seconds of fluoroscopic time was utilized during procedure and 51 images obtained. Total dose area product (DAP) in uGy*m?, mGy*cm? (or similar): 36. FINDINGS: [employer] Supervisor view of the abdomen shows excessive retained bowel gas throughout. As much of this a ppears to be within small bowel, decision is made to proceed with single contrast technique. There is some redundancy of the distal sigmoid colon which causes limitation in visualization. Additional limitation due to extensive refluxing contrast across the ileocecal valve and opacificatio n of small bowel loops. The patient began to leak contrast which resulted in some premature emptying from the colon. Prominent diverticular change along the mid to distal sigmoid colon. To the extent visualized, no gayatri ntifiable mass, polyp, or obstructing/constricting lesion is identified throughout the colon. IMPRESSION: 1. Mid to distal sigmoid diverticulosis. 2. Exam limitations due to retained air, contrast refluxing across the ileocecal valve, and redundanc y of the sigmoid colon. 3. Allowing for these limitations, no definite suspicious constricting lesion is identified. [facility], , 06/21/2024 3:02 PM
== END ==
LOC: ORWHC2ENDO 09:40
PROVIDERS: ATTEND Internal Medicine Gastroenterology
CPT/HCPCS: 45330; 74270